=== PATIENT | female | born 1955 | race Caucasian/White ===

== ENCOUNTER 2016-10-17 16:50 | Emergency (ER) | payer OTHER ==
[2016-10-17 16:59] VITALS: BP 118/68
--- NOTE | 2016-10-17 17:17 | ED Physician Documentation ---
History of Present Illness - Stated complaint Stated Complaint: GROIN PX - Chief complaint Chief Complaint: General - History obtained from History obtained from: Patient - History of Present Illness Timing: Other (61-year-old woman with history of breast cancer was diagnosed with right atrial thrombus a little over a month ago and has been on Pradaxa ever since. She has been moving around a lot lately and moving furniture and developed gradual onset right groin pain, She called her physician who referred her to the emergency department to rule out Clot given her current issues.) Review of Systems Constitutional: denies: Fever, Chills Throat: denies: Dental pain / toothache Cardiac: denies: Chest pain / pressure, Palpitations Respiratory: denies: Dyspnea, Cough GI: denies: Abdominal Pain PD PAST MEDICAL HISTORY - Past Medical History Cardiovascular: Hypertension, High cholesterol, Angina Respiratory: Asthma Endocrine/Autoimmune: HyPOthyroidism GI: GI bleed, Chronic constipation : Retention Psych: Depression, Anxiety Musculoskeletal: Osteoarthritis Derm: Herpes zoster - Past Surgical History Past Surgical History: Yes General: Cholecystectomy, Appendectomy Ortho: Knee replacement, Rotator cuff repair, Other /BUSINESS ASST: Other HEENT: Tonsil/Adenoidectomy - Present Medications Home Medications: Ambulatory Orders Medication Instructions Recorded Confirmed Albuterol [Ventolin Hfa] 2 puffs INH Q6HR PRN 04/26/13 10/17/16 Alpha Lipoic Acid [Alpha-Lipoic 50 mg PO DAILY 04/26/13 10/17/16 Acid] Aspirin [Aspir 81] 81 mg PO DAILY 04/26/13 10/17/16 Cholecalciferol (Vitamin D3) 400 unit PO DAILY 04/26/13 10/17/16 [Vitamin D-400] Chromium Picolinate 400 mcg PO DAILY 04/26/13 10/17/16 Dextroamphetamine/Amphetamine 30 mg PO BID 04/26/13 10/17/16 [Adderall 10 mg Tablet] Fexofenadine [Marta] 60 mg PO DAILY PRN 04/26/13 10/17/16 Hydrochlorothiazide 25 mg PO DAILY 04/26/13 10/17/16 Lactobacillus Acidophilus 1 each PO TID 04/26/13 10/17/16 [Acidophilus] Levothyroxine Sodium [Synthroid] 88 mcg PO QAM 04/26/13 10/17/16 Multivitamin [Multivitamins] 1 each PO DAILY 04/26/13 10/17/16 [place]-3/Dha/Epa/Fish Oil [Fish Oil 1 each PO DAILY 04/26/13 10/17/16 [place]-3 Softgel] Omeprazole [PriLOSEC] 10 mg PO DAILY PRN 04/26/13 10/17/16 Ubidecarenone [Co Q10] 100 mg PO DAILY 04/26/13 10/17/16 Potassium Bicarbonate/Cit AC 10 meq PO DAILY 09/20/13 10/17/16 [Potassium 25 Meq Tablet Eff] Azithromycin 500 mg PO DAILY 10/17/16 10/17/16 Dabigatran Etexilate Mesylate 150 mg PO DAILY 10/17/16 10/17/16 [Pradaxa] Fluticasone/Salmeterol 100/50 0 puffs INH BID 10/17/16 10/17/16 [Advair 100 Mcg/50 Mcg] Ipratropium/Albuterol [Combivent 4 gm IH .FREQ 10/17/16 10/17/16 Respimat] buPROPion [Wellbutrin Sr] 150 mg PO BID 10/17/16 10/17/16 - Allergies Allergies/Adverse Reactions: Allergies Allergy/AdvReac Type Severity Reaction Status Date / Time bupivacaine HCl * Allergy Unknown Verified 05/22/15 11:04 [From Marcaine-Epinephrine] ibuprofen Allergy Rash Unverified 05/22/15 11:04 Latex, Natural Rubber Allergy Rash Verified 02/15/16 15:35 morphine Allergy Itching Unverified 05/22/15 11:04 naproxen sodium * Allergy Itching Unverified 05/22/15 11:04 [From Aleve] Sulfa (Sulfonamide Allergy Edema Unverified 05/22/15 11:04 Antibiotics) phenytoin sodium * AdvReac Hives Unverified 05/22/15 11:04 [From Dilantin] phenytoin sodium extended * AdvReac Hives Unverified 05/22/15 11:04 [From Dilantin] - Social History Does the pt smoke?: No Smoking Status: Never smoker Does the pt have substance abuse?: No - POLST Patient has POLST: No PD ED PE NORMAL - Vitals Vital signs reviewed: Yes - General General: Alert and oriented X 3, No acute distress - Extremities Extremities: No edema, No calf tenderness / cord, Other (Normal PT and DP pedal pulses on the left) - Neuro Neuro: Alert and oriented X 3, Normal speech - Psych Psych: Normal mood, Normal affect Results - Vitals Vitals: Vital Signs - 24 hr 10/17/16 16:54 Temperature 36.1 C L Heart Rate 71 Respiratory 16 Rate Blood Pressure 118/68 O2 Saturation 100 Oxygen O2 Source Room air - Labs Labs: Laboratory Tests 10/17/16 18:21 Urine Color YELLOW Urine Clarity CLEAR Urine pH 6.0 Ur Specific [place] <=1.005 Urine Protein NEGATIVE Urine Glucose (UA) NEGATIVE Urine Ketones NEGATIVE Urine Occult Blood SMALL H Urine Nitrite NEGATIVE Urine Bilirubin NEGATIVE Urine Urobilinogen 0.2 (NORMAL) Ur Leukocyte Esterase NEGATIVE Urine RBC 0-5 Urine WBC 0-3 Ur Squamous Epith Cells NONE SEEN Urine Bacteria None Seen Ur Microscopic Review INDICATED Urine Culture Comments NOT INDICATED PD MEDICAL DECISION MAKING - ED course ED course: No clinical or ultrasonographic evidence of arterial or venous thrombus. She was reassured. Departure - Departure Disposition: 01 Home, Self Care Clinical Impression: Leg pain, left Condition: Good Record reviewed to determine appropriate education?: Yes Instructions: ED Strain Muscle Ext Comments: Tylenol as needed for pain. Return if worse or if new symptoms develop. Discharge Date/Time: 10/17/16 18:58
[2016-10-17 18:29] LABS: BILIRUBIN,URINE NEGATIVE (NEGATIVE)
--- NOTE | 2016-10-17 18:39 | Ultrasound Preliminary Report ---
Exam: US Duplex Ext Veins Left IMPRESSION: No evidence for deep venous thrombosis. [facility] SITE ID: [id number]
--- NOTE | 2016-10-17 18:41 | Ultrasound Report ---
EXAM: LEFT LOWER EXTREMITY VENOUS ULTRASOUND EXAM DATE: 10/17/2016 06:21 PM. CLINICAL HISTORY: Leg pain. COMPARISON: None. TECHNIQUE: Real-time sonographic vascular imaging was performed by the clinical lab clerk through the lower extremity utilizing both color-flow and Doppler spectral analysis. Multiple access representative static enedelia ges were saved for review. FINDINGS: Common Femoral Vein (CFV): Normal. CFV-GSV Junction: Normal. Profunda Femoral Vein (PFV): Normal. Femoral Vein (FV) Prox: Normal. Femoral Vein (FV) Mid: Normal. Femoral Vein (FV) Dist: Normal. Popliteal Vein: Normal. Posterior Tibial Veins: Normal. Peroneal Veins: Normal. Contralateral Side CFV: Normal. Other: None. IMPRESSION: No evidence for deep venous thrombosis. [facility] Referring Provider Line: [phone] SITE ID: [id number]
[2016-10-17 18:53] LABS: UA w/ MICROSCOPIC CHARGE YES
[2016-10-17 18:54] LABS: UR CULTURE IF IND NOT INDICATED; WBC,URINE 0-3 /HPF (0-5)
== END 2016-10-17 18:58 | disposition home or self-care (01) ==
LOC: ED 16:50
DX: M79.652 Pain in left thigh (principal); Z86.718 Personal history of other venous thrombosis and embolism; Z79.01 Long term (current) use of anticoagulants; Z85.3 Personal history of malignant neoplasm of breast; I10 Essential (primary) hypertension; E78.00 Pure hypercholesterolemia, unspecified; I20.9 Angina pectoris, unspecified; J45.909 Unspecified asthma, uncomplicated; E03.9 Hypothyroidism, unspecified; M19.90 Unspecified osteoarthritis, unspecified site; Z79.82 Long term (current) use of aspirin
CPT/HCPCS: 81001; 81003; 87086; 99283

== ENCOUNTER 2017-03-18 12:14 | Outpatient (CLI) | payer OTHER ==
[2017-03-18 13:06] LABS: % IRON SATURATION 43 % (20-50); CHOL/HDL RATIO 2.9 (<4.4); CHOLESTEROL 209 mg/dL; HDL CHOLESTEROL 73 mg/dL; IRON 145 ug/dL (28-170); LDL CHOLESTEROL,CALCULATED 120 mg/dL; LDL/HDL RATIO 1.6 (<4.4); TOTAL IRON BINDING CAPACITY 335 ug/dL (250-450); TRANSFERRIN 239 mg/dL (192-382); VLDL CHOLESTEROL 16 mg/dL
[2017-03-18 13:47] LABS: HB2 TOTAL 13.3 g/dL; HEMOGLOBIN A1C 0.53 g/dL; HEMOGLOBIN A1C % 5.8 % (4.6-6.2)
[2017-03-20 14:46] LABS: ANA SCREEN POSITIVE (NEGATIVE)
== END 2017-03-18 12:15 | disposition home or self-care (01) ==
LOC: LAB 12:14
PROVIDERS: ATTEND Internal Medicine
DX: E03.9 Hypothyroidism, unspecified (principal); R53.83 Other fatigue; R53.1 Weakness; G89.29 Other chronic pain
CPT/HCPCS: 36415; 80061; 82306; 83036; 83540; 84466; 86038

== ENCOUNTER 2017-04-20 12:26 | Outpatient (CLI) | payer OTHER ==
[2017-04-20 16:53] LABS: THYROID STIMULATING HORMONE 0.87 uIU/mL (0.34-5.60)
[2017-04-20 16:56] LABS: FREE T4 (FREE THYROXINE) 1.24 ng/dL (0.58-1.64)
[2017-04-22 10:41] LABS: DNA (DS) ANTIBODY <1 IU/mL
[2017-04-22 20:17] LABS: SMOOTH MUSCLE IGG AB <20 U
== END 2017-04-20 12:27 | disposition home or self-care (01) ==
LOC: LAB 12:26
PROVIDERS: ATTEND Internal Medicine
DX: R76.8 Other specified abnormal immunological findings in serum (principal); M89.8X9 Other specified disorders of bone, unspecified site; E03.9 Hypothyroidism, unspecified
CPT/HCPCS: 36415; 81599; 83516; 84439; 84443; 84481; 86225; 86235

== ENCOUNTER 2017-05-20 09:48 | Emergency (ER) | payer OTHER ==
[2017-05-20 10:54] LABS: BILIRUBIN,URINE NEGATIVE (NEGATIVE); GLUCOSE, URINE (UA) NEGATIVE (NEGATIVE); KETONES,URINE (UA) NEGATIVE (NEGATIVE); LEUKOCYTE ESTERASE, URINE NEGATIVE (NEGATIVE); NITRITE,URINE NEGATIVE (NEGATIVE); OCCULT BLOOD,URINE TRACE-LYSE (NEGATIVE); PROTEIN,URINE NEGATIVE (NEGATIVE); UROBILINOGEN,URINE 0.2 (NORMAL) E.U./dL (NORMAL)
[2017-05-20 10:58] LABS: CLARITY,URINE CLEAR (CLEAR)
[2017-05-20 11:01] LABS: BASOPHILS # (AUTO) 0.1 10^3/uL (0.0-0.1); BASOPHILS % (AUTO) 0.6 %; EOSINOPHILS # (AUTO) 0.2 10^3/uL (0.0-0.7); EOSINOPHILS % (AUTO) 2.3 %; HGB - HEMOGLOBIN 13.1 g/dL (12.0-16.0); LYMPHOCYTES # (AUTO) 1.6 10^3/uL (1.5-3.5); LYMPHOCYTES % (AUTO) 16.7 %; MEAN CORPUSCULAR HGB CONC 34.1 g/dL (32.0-36.0); MEAN CORPUSCULAR VOLUME 90.9 fL (81.0-99.0); MEAN PLATELET VOLUME 7.7 fL (7.9-10.8); NEUTROPHILS # (AUTO) 6.9 10^3/uL (1.5-6.6); NEUTROPHILS % (AUTO) 70.4 %; PLT - PLATELET COUNT 242 10^3/uL (130-450); RED BLOOD COUNT 4.24 10^6/uL (4.20-5.40); WHITE BLOOD COUNT 9.9 x10^3/uL (4.8-10.8)
--- NOTE | 2017-05-20 11:12 | ED Physician Documentation ---
PD HPI ABD PAIN - Stated complaint Stated Complaint: LOWER ABD PX/CONSTIPATION - Chief complaint Chief Complaint: Abd Pain - History obtained from History obtained from: Patient - History of Present Illness Pain level max: 9 Pain level now: 9 Quality: Cramping, Aching, Sharp Location: Other (lower abdomen) Associated symptoms: No: Vomiting, Hematemesis Recently seen: Not recently seen - Additional information Additional information: Patient is a 62 yo F with a long history of chronic constipation. Is on lactulose at home. She states that she has had abd pain for 2 days. Constant. 9/ 10. worse when trying to have a BM or palpation. Nothing makes it better. She is taking diclofenac and this helps. Started clindamycin yesterday for a "gynecology" issue. No BM x2 days. No diarrhea. No fevers. Review of Systems Constitutional: denies: Fever, Chills Nose: denies: Rhinorrhea / runny nose, Congestion Respiratory: denies: Cough GI: denies: Nausea, Vomiting Skin: denies: Rash Musculoskeletal: denies: Neck pain, Back pain Neurologic: denies: Headache PD PAST MEDICAL HISTORY - Past Medical History Past Medical History: Yes Cardiovascular: Hypertension, High cholesterol, Angina Respiratory: Asthma Endocrine/Autoimmune: HyPOthyroidism GI: GI bleed, Chronic constipation : Retention Psych: Depression, Anxiety Musculoskeletal: Osteoarthritis Derm: Herpes zoster - Past Surgical History Past Surgical History: Yes General: Cholecystectomy, Appendectomy Ortho: Knee replacement, Rotator cuff repair, Other /HOMICIDE [place]: Other HEENT: Tonsil/Adenoidectomy - Present Medications Home Medications: Ambulatory Orders Medication Instructions Recorded Confirmed Albuterol [Ventolin Hfa] 2 puffs INH Q6HR PRN 04/26/13 10/17/16 Alpha Lipoic Acid [Alpha-Lipoic 50 mg PO DAILY 04/26/13 10/17/16 Acid] Aspirin [Aspir 81] 81 mg PO DAILY 04/26/13 10/17/16 Cholecalciferol (Vitamin D3) 400 unit PO DAILY 04/26/13 10/17/16 [Vitamin D-400] Chromium Picolinate 400 mcg PO DAILY 04/26/13 10/17/16 Dextroamphetamine/Amphetamine 30 mg PO BID 04/26/13 10/17/16 [Adderall 10 mg Tablet] Fexofenadine [Marta] 60 mg PO DAILY PRN 04/26/13 10/17/16 Hydrochlorothiazide 25 mg PO DAILY 04/26/13 10/17/16 Lactobacillus Acidophilus 1 each PO TID 04/26/13 10/17/16 [Acidophilus] Levothyroxine Sodium [Synthroid] 88 mcg PO QAM 04/26/13 10/17/16 Multivitamin [Multivitamins] 1 each PO DAILY 04/26/13 10/17/16 [place]-3/Dha/Epa/Fish Oil [Fish Oil 1 each PO DAILY 04/26/13 10/17/16 [place]-3 Softgel] Omeprazole [PriLOSEC] 10 mg PO DAILY PRN 04/26/13 10/17/16 Ubidecarenone [Co Q10] 100 mg PO DAILY 04/26/13 10/17/16 Potassium Bicarbonate/Cit AC 10 meq PO DAILY 09/20/13 10/17/16 [Potassium 25 Meq Tablet Eff] Azithromycin 500 mg PO DAILY 10/17/16 10/17/16 Dabigatran Etexilate Mesylate 150 mg PO DAILY 10/17/16 10/17/16 [Pradaxa] Fluticasone/Salmeterol 100/50 0 puffs INH BID 10/17/16 10/17/16 [Advair 100 Mcg/50 Mcg] Ipratropium/Albuterol [Combivent 4 gm IH .FREQ 10/17/16 10/17/16 Respimat] buPROPion [Wellbutrin Sr] 150 mg PO BID 10/17/16 10/17/16 Amox/Clav 875/125 [Augmentin] 1 each PO Q12H #20 tablet 05/20/17 Hydrocodone/Acetaminophen 1 - 2 each PO Q6H PRN #10 tablet 05/20/17 [Hydrocodon-Acetaminophen 5-325] - Allergies Allergies/Adverse Reactions: Allergies Allergy/AdvReac Type Severity Reaction Status Date / Time bupivacaine HCl * Allergy Unknown Verified 05/20/17 12:59 [From Marcaine-Epinephrine] ibuprofen Allergy Rash Verified 05/20/17 12:59 Latex, Natural Rubber Allergy Rash Verified 05/20/17 12:59 meperidine [From Demerol] Allergy Hives Verified 05/20/17 12:59 methylparaben Allergy Hives Verified 05/20/17 12:59 morphine Allergy Itching Verified 05/20/17 12:59 naproxen sodium * Allergy Itching Verified 05/20/17 12:59 [From Aleve] propoxyphene [From Darvon] Allergy Hives Verified 05/20/17 12:59 Sulfa (Sulfonamide Allergy Edema Verified 05/20/17 12:59 Antibiotics) phenytoin sodium * AdvReac Hives Verified 05/20/17 12:59 [From Dilantin] phenytoin sodium extended * AdvReac Hives Verified 05/20/17 12:59 [From Dilantin] - Social History Does the pt smoke?: No Smoking Status: Never smoker Does the pt drink ETOH?: No Does the pt have substance abuse?: No - Immunizations Immunizations are current?: Yes - POLST Patient has POLST: No PD ED PE NORMAL - Vitals Vital signs reviewed: Yes - General General: Alert and oriented X 3, No acute distress - HEENT HEENT: PERRL, Moist mucous membranes - Neck Neck: Supple, no meningeal sign - Cardiac Cardiac: RRR, Strong equal pulses - Respiratory Respiratory: No respiratory distress, Clear bilaterally - Abdomen Abdomen: Soft, Non tender, Non distended - Rectal Rectal: Other (stool soft in rectal vault. no blood. non-tender.) - Derm Derm: Warm and dry - Neuro Neuro: Alert and oriented X 3 - Psych Psych: Normal mood, Normal affect Results - Vitals Vitals: Vital Signs - 24 hr 05/20/17 05/20/17 09:57 12:14 Temperature 36.8 C Heart Rate 72 67 Respiratory 20 16 Rate Blood Pressure 117/69 115/64 O2 Saturation 100 99 Oxygen O2 Source Room air - Labs Labs: Laboratory Tests 05/20/17 05/20/17 05/20/17 10:20 10:20 10:20 WBC 9.9 RBC 4.24 Hgb 13.1 Hct 38.5 MCV 90.9 MCH 31.0 MCHC 34.1 RDW 13.0 Plt Count 242 MPV 7.7 L Neut # 6.9 H Lymph # 1.6 [place] # 1.0 Eos # 0.2 Baso # 0.1 Absolute Nucleated RBC 0.00 Nucleated RBC % 0.0 Sodium 133 L Potassium 3.9 Chloride 99 L Carbon Dioxide 23 Anion Gap 11.0 BUN 16 Creatinine 0.7 Estimated GFR (MDRD) 85 L Glucose 126 H Calcium 8.8 Total Bilirubin 0.7 AST 28 ALT 26 Alkaline Phosphatase 66 Total Protein 7.0 Albumin 3.9 Globulin 3.1 Albumin/Globulin Ratio 1.3 Lipase < 10 L Urine Color YELLOW Urine Clarity CLEAR Urine pH 7.0 Ur Specific [place] 1.010 Urine Protein NEGATIVE Urine Glucose (UA) NEGATIVE Urine Ketones NEGATIVE Urine Occult Blood TRACE-LYSE Urine Nitrite NEGATIVE Urine Bilirubin NEGATIVE Urine Urobilinogen 0.2 (NORMAL) Ur Leukocyte Esterase NEGATIVE Ur Microscopic Review NOT INDICATED Urine Culture Comments NOT INDICATED - Rads (name of study) CT abd/pelvis Radiology: Prelim report reviewed, EMP read contemporaneously, See rad report ( Acute sigmoid diverticulitis. Uncomplicated.) PD MEDICAL DECISION MAKING - ED course Complexity details: reviewed results, re-evaluated patient, considered differential, d/w patient, d/w family ED course: Patient is a 62-year-old female who presents to the emergency department with chronic constipation. She appears to have sigmoid diverticulitis on CT. No perforation or abscess. Will place on antibiotics for this and continue her current medications at home. We will have her follow-up with her doctor for further evaluation and care. She has a GI appointment upcoming. Patient counseled regarding signs and symptoms for which I believe and urgent re- evaluation would be necessary. Patient with good understanding of and agreement to plan and is comfortable going home at this time This document was made in part using voice recognition software. While efforts are made to proofread this document, sound alike and grammatical errors may occur. Departure - Departure Disposition: 01 Home, Self Care Clinical Impression: Diverticulitis Condition: Good Instructions: ED Diverticulitis Follow-Up: KARY JONES MD [Primary Care Provider] - Within 1 week Prescriptions: Amox/Clav 875/125 [Augmentin] 1 each PO Q12H #20 tablet Hydrocodone/Acetaminophen [Hydrocodon-Acetaminophen 5-325] 1 - 2 each PO Q6H PRN #10 tablet PRN Reason: pain Comments: Drink plenty of fluids. Return if you worsen. Take all antibiotics until gone.
[2017-05-20] MEDS ORDERED: MINERAL OIL ENEMA 133 ML BOTTLE RC STA (11:22)
[2017-05-20 11:29] LABS: ALBUMIN 3.9 g/dL (3.2-5.5); ALBUMIN/GLOBULIN RATIO 1.3 (1.0-2.2); ALKALINE PHOSPHATASE 66 IU/L (42-121); ALT ALANINE AMINOTRANSFERASE 26 IU/L (10-60); AST ASPARTATE AMINOTRANSFERASE 28 IU/L (10-42); BILIRUBIN,TOTAL 0.7 mg/dL (0.2-1.0); BUN - BLOOD UREA NITROGEN 16 mg/dL (6-20); CALCIUM 8.8 mg/dL (8.5-10.3); CARBON DIOXIDE - CO2 23 mmol/L (21-32); CHLORIDE 99 mmol/L (101-111); CREATININE 0.7 mg/dL (0.4-1.0); GFR - MDRD 85 (>89); GLUCOSE 126 mg/dL (70-100); SODIUM 133 mmol/L (135-145)
[2017-05-20 11:35] LABS: LIPASE < 10 U/L (22-51)
[2017-05-20] MEDS ORDERED: IOPAMIDOL-300 100 ML VIAL ONE (12:52)
[2017-05-20] MEDS ORDERED: ACETAMINOPHEN 325 MG TABLET PO STA (12:56)
[2017-05-20] MEDS ORDERED: HYDROcod/ACETAM 5/325 MG TABLET PO STA (13:38)
--- NOTE | 2017-05-20 13:45 | CT Preliminary Report ---
Exam: CT ABDOMEN/PELVIS W/ IMPRESSION: 1. Sigmoid diverticulitis. No abscess or evidence of perforation. 2. Probable hepatic steatosis. 3. Chronic and incidental findings as above. [facility] SITE ID: [id number]
--- NOTE | 2017-05-20 13:46 | CT Report ---
EXAM: CT ABDOMEN AND PELVIS EXAM DATE: 05/20/2017 01:24 PM. CLINICAL HISTORY: Lower abd pain, . COMPARISONS: 05/22/2014. TECHNIQUE: Routine helical CT imaging was performed through the abdomen and pelvis. IV contrast: ISOV UE 300 100mL. Enteric contrast: No. Reconstructions: Coronal and sagittal. In accordance with CT protocol optimization, one or more of the following dose reduction techniques w ere utilized for this exam: automated exposure control, adjustment of mA and/or KV based on patient s ize, or use of iterative reconstructive technique. FINDINGS: Lung Bases: Unremarkable. Liver: Diffusely decreased parenchymal attenuation. Otherwise within normal limits. Gallbladder/Bile Ducts: The gallbladder is not visualized and may be surgically absent. No biliary di latation. Spleen: No significant abnormality. Pancreas: No significant abnormality. Adrenal Glands: Normal. Kidneys: Normal. Peritoneal Cavity/Bowel: Moderate sigmoid colon and mild descending colon diverticulosis. There is sh ort segment wall thickening and adjacent inflammatory fat stranding at the distal sigmoid colon. No a bscess. No ascites or pneumoperitoneum. No bowel obstruction or abnormal stool burden. The appendix i s not visualized. No pericecal inflammatory change. Pelvic Organs: The urinary bladder and visualized pelvic organs are within normal limits. Vasculature: Minimal atherosclerosis. No aneurysm. Bones: Degenerative change of the visualized spine. No acute osseous abnormality or aggressive osseou s lesion. Other: None. IMPRESSION: 1. Sigmoid diverticulitis. No abscess or evidence of perforation. 2. Probable hepatic steatosis. 3. Chronic and incidental findings as above. [facility] Referring Provider Line: [phone] SITE ID: [id number]
[2017-05-20] MEDS ORDERED: IOPAMIDOL-300 100 ML VIAL IVP ONE (13:57)
[2017-05-20 14:29] VITALS: BP 118/60
== END 2017-05-20 14:27 | disposition home or self-care (01) ==
LOC: ED 09:48
DX: K57.92 Diverticulitis of intestine, part unspecified, without perforation or abscess without bleeding (principal); E78.00 Pure hypercholesterolemia, unspecified; I10 Essential (primary) hypertension; E03.9 Hypothyroidism, unspecified; Z96.659 Presence of unspecified artificial knee joint
CPT/HCPCS: 36415; 74177; 80053; 81003; 83690; 85025; 99284; A9270; Q9967; 81001; 87086

== ENCOUNTER 2017-11-01 11:31 | Outpatient (CLI) | payer OTHER ==
[2017-11-01 17:56] LABS: BASOPHILS # (AUTO) 0.1 10^3/uL (0.0-0.1); BASOPHILS % (AUTO) 1.3 %; EOSINOPHILS # (AUTO) 0.3 10^3/uL (0.0-0.7); EOSINOPHILS % (AUTO) 4.9 %; HGB - HEMOGLOBIN 13.7 g/dL (12.0-16.0); LYMPHOCYTES # (AUTO) 1.7 10^3/uL (1.5-3.5); LYMPHOCYTES % (AUTO) 27.4 %; MEAN CORPUSCULAR HEMOGLOBIN 31.2 pg (27.0-31.0); MEAN CORPUSCULAR HGB CONC 33.7 g/dL (32.0-36.0); MEAN CORPUSCULAR VOLUME 92.7 fL (81.0-99.0); MEAN PLATELET VOLUME 7.8 fL (7.9-10.8); MONOCYTES # (AUTO) 0.6 10^3/uL (0.0-1.0); MONOCYTES % (AUTO) 9.3 %; NEUTROPHILS # (AUTO) 3.6 10^3/uL (1.5-6.6); NEUTROPHILS % (AUTO) 57.1 %; PLT - PLATELET COUNT 266 10^3/uL (130-450); RED BLOOD COUNT 4.39 10^6/uL (4.20-5.40); RED CELL DISTRIBUTION WIDTH 13.2 % (12.0-15.0); WHITE BLOOD COUNT 6.2 x10^3/uL (4.8-10.8)
[2017-11-01 18:08] LABS: ALBUMIN 3.9 g/dL (3.2-5.5); ALBUMIN/GLOBULIN RATIO 1.1 (1.0-2.2); CALCIUM 9.1 mg/dL (8.5-10.3); CREATININE 0.7 mg/dL (0.4-1.0); TOTAL PROTEIN 7.4 g/dL (6.7-8.2)
[2017-11-01 18:15] LABS: T4 (THYROXINE) 7.34 ug/dL (6.09-12.23)
[2017-11-01 18:20] LABS: THYROID STIMULATING HORMONE 0.56 uIU/mL (0.34-5.60)
== END 2017-11-01 11:32 | disposition home or self-care (01) ==
LOC: LAB.S 11:31
PROVIDERS: ATTEND Internal Medicine
DX: E03.9 Hypothyroidism, unspecified (principal); R73.9 Hyperglycemia, unspecified; R10.9 Unspecified abdominal pain; R60.0 Localized edema; R76.8 Other specified abnormal immunological findings in serum
CPT/HCPCS: 36415; 80053; 84436; 84443; 84481; 85025

== ENCOUNTER 2017-12-03 08:36 | Outpatient (CLI) | payer OTHER | END 2017-12-03 08:37 | disposition short-term general hospital (02) | LOC: EMS 08:36 | PROVIDERS: ATTEND Surgery | DX: R07.9 Chest pain, unspecified (principal); R00.2 Palpitations | CPT/HCPCS: A0425; A0427 ==

== ENCOUNTER 2018-02-01 17:16 | Outpatient (CLI) | payer OTHER ==
--- NOTE | 2018-02-01 18:04 | XRAY Report ---
Reason: PAIN IN UNSPECIFIED HIP, PELVIC AND PERINEAL PAIN Procedure Date: 02/01/2018 Accession Number: [id number] / [id number] Procedure: XR - Hip w/Pelvis 2-3V LT CPT Code: FULL RESULT: EXAM: LEFT HIP AND PELVIS RADIOGRAPHY EXAM DATE: 02/01/2018 05:46 PM. HISTORY: PAIN IN UNSPECIFIED HIP, PELVIC AND PERINEAL PAIN. COMPARISONS: None. TECHNIQUE: 1 view of the pelvis and 1 view of the hip. FINDINGS: Bones: Normal. No fracture or bone lesion. Joints: Mild bilateral sacroiliac degenerative joint disease. Mild pubic symphysis sclerosis. Bilateral hips appear within normal limits. No dislocation. Soft Tissues: Normal. No soft tissue swelling. IMPRESSION: Mild bilateral sacroiliac degenerative joint disease. Mild pubic symphysis sclerosis. Bilateral hips appear within normal limits. [facility]
--- NOTE | 2018-02-01 19:22 | Ultrasound Report ---
Reason: PAIN IN UNSPECIFIED HIP, PELVIC AND PERINEAL PAIN Procedure Date: 02/01/2018 Accession Number: [id number] / [id number] Procedure: US - Pelvic Complete CPT Code: FULL RESULT: EXAM: PELVIC ULTRASOUND EXAM DATE: 02/01/2018 06:02 PM. CLINICAL HISTORY: PAIN IN UNSPECIFIED HIP, PELVIC AND PERINEAL PAIN. COMPARISON: None. TECHNIQUE: Realtime transabdominal pelvic scan performed to identify the uterus and adnexa and as an overview of other pelvic structures, followed by transvaginal technique for anatomic detail with static image documentation. FINDINGS: Uterus: 5.4 x 1.8 x 2.8 cm, volume 14 cc. Anteverted position. Normal overall size and echotexture. Masses: None. Endometrium: 3 mm. Several echogenic endometrial foci, these are nonspecific and likely post inflammatory or related to previous instrumentation and are of doubtful clinical significance. No hypervascular endometrial mass. Cervix: There are several complex nabothian cysts. Right Ovary: 2.8 x 1.2 x 1.7 cm, volume 2.9 cc. Normal echotexture and blood flow. Left Ovary: 2.3 x 1.4 x 1.5 cm, volume 2.5 cc. Normal echotexture and blood flow. Free Fluid: None. Other: None. IMPRESSION: Unremarkable pelvic ultrasound. [facility]
== END 2018-02-01 17:17 | disposition home or self-care (01) ==
LOC: DI 17:16
PROVIDERS: ATTEND Internal Medicine
DX: M47.898 Other spondylosis, sacral and sacrococcygeal region (principal); R10.2 Pelvic and perineal pain
CPT/HCPCS: 76830; 76856

== ENCOUNTER 2018-03-28 13:57 | Outpatient (CLI) | payer OTHER | END 2018-03-28 13:58 | disposition home or self-care (01) | LOC: NS 13:57 | PROVIDERS: ATTEND Internal Medicine | DX: Z71.3 Dietary counseling and surveillance (principal); R73.03 Prediabetes | CPT/HCPCS: 97802 ==

== ENCOUNTER 2019-04-16 01:16 | Outpatient (CLI) | payer OTHER | END 2019-04-16 01:17 | disposition EMS.NT | LOC: EMS 01:16 | PROVIDERS: ATTEND Surgery | DX: S09.90XA Unspecified injury of head, initial encounter (principal); R42 Dizziness and giddiness; W08.XXXA Fall from other furniture, initial encounter; Y93.89 Activity, other specified; Y92.009 Unspecified place in unspecified non-institutional (private) residence as the place of occurrence of the external cause ==

== ENCOUNTER 2020-06-27 12:19 | Outpatient (CLI) | payer MEDICARE, OTHER ==
[2020-06-27 12:55] LABS: CREATININE 0.6 mg/dL (0.4-1.0)
== END 2020-06-27 12:20 | disposition home or self-care (01) ==
LOC: DI 12:19
PROVIDERS: ATTEND Internal Medicine
DX: R10.32 Left lower quadrant pain (principal)
CPT/HCPCS: 36415; 82565

== ENCOUNTER 2021-02-08 15:30 | Outpatient (CLI) | payer MEDICARE, OTHER ==
[2021-02-08 18:00] LABS: BILIRUBIN,URINE NEGATIVE (NEGATIVE); GLUCOSE, URINE (UA) NEGATIVE (NEGATIVE); KETONES,URINE (UA) NEGATIVE (NEGATIVE); LEUKOCYTE ESTERASE, URINE TRACE (NEGATIVE); NITRITE,URINE NEGATIVE (NEGATIVE); OCCULT BLOOD,URINE SMALL (NEGATIVE); PROTEIN,URINE NEGATIVE (NEGATIVE); UROBILINOGEN,URINE 0.2 (NORMAL) E.U./dL (NORMAL)
[2021-02-08 18:04] LABS: CLARITY,URINE CLEAR (CLEAR)
[2021-02-08 18:19] LABS: BACTERIA,URINE Rare /HPF (None Seen); RBC,URINE 0-5 /HPF (0-5); SQUAMOUS EPITHELIAL CELL,UR RARE Squamous (<= Few)
== END 2021-02-08 23:59 | disposition home or self-care (01) ==
LOC: LAB 15:30
PROVIDERS: ATTEND Emergency Medicine
DX: R30.0 Dysuria (principal)
CPT/HCPCS: 81001; 87086

== ENCOUNTER 2021-05-04 08:00 | Outpatient (CLI) | payer MEDICARE, OTHER ==
--- NOTE | 2021-05-04 18:01 | XRAY Report ---
PROCEDURE: Foot 3 View RT INDICATIONS: CONTUSION OF RIGHT FOOT TECHNIQUE: 3 views of the foot were acquired. COMPARISON: None. FINDINGS: Bones: No acute fractures or dislocations. No suspicious bony lesions. Scattered degenerative [place] ges are seen in the interphalangeal joints of the toes. Focal cortical irregularity at the medial asp ect of the first proximal phalangeal head appears to be chronic. Small plantar calcaneal enthesophyte . Soft tissues: No suspicious soft tissue calcifications. IMPRESSION: No acute osseous abnormality. If symptoms persist or there is continued clinical concern, further manuel luation with MRI or CT may be helpful. Reviewed by: Vince Hannah MD on 05/04/2021 5:59 PM [facility] Approved by: Vnice Hannah MD on 05/04/2021 5:59 PM [facility] Station ID: [id number]
== END 2021-05-04 23:59 | disposition home or self-care (01) ==
LOC: DI.S 08:00
PROVIDERS: ATTEND Emergency Medicine
DX: S90.31XA Contusion of right foot, initial encounter (principal)

== ENCOUNTER 2021-07-21 08:00 | Outpatient (CLI) | payer MEDICARE, OTHER ==
--- NOTE | 2021-07-21 18:38 | XRAY Report ---
PROCEDURE: Toe(s) RT INDICATIONS: CONTUSION OF LESSER TOES RIGHT TECHNIQUE: 3 views of the second toe(s) acquired. COMPARISON: X-ray right foot, 3 views, 05/04/2021. FINDINGS: Bones: Probable evulsion fracture at the base of the second phalanx. No dislocations. No suspicious bony lesions. Soft tissues: No suspicious soft tissue densities. IMPRESSION: Probable avulsion fracture at the base of the second middle phalanx. Reviewed by: Shari Pritchett MD on 07/21/2021 5:37 PM [facility] Approved by: Shari Pritchett MD on 07/21/2021 5:37 PM [facility] Station ID: [id number]
== END 2021-07-21 23:59 | disposition home or self-care (01) ==
LOC: DI.S 08:00
PROVIDERS: ATTEND Physician Assistant Medical
DX: S90.121A Contusion of right lesser toe(s) without damage to nail, initial encounter (principal); R93.6 Abnormal findings on diagnostic imaging of limbs

== ENCOUNTER 2021-09-20 08:00 | Outpatient (CLI) | payer MEDICARE, OTHER | END 2021-09-20 08:01 | disposition home or self-care (01) | LOC: LAB.S 08:00 | PROVIDERS: ATTEND Emergency Medicine | DX: R25.1 Tremor, unspecified (principal) | CPT/HCPCS: 82962 ==

== ENCOUNTER 2021-09-20 08:00 | Outpatient (CLI) | payer MEDICARE, OTHER ==
--- NOTE | 2021-09-20 18:25 | XRAY Report ---
PROCEDURE: Tib/Fib RT INDICATIONS: RIGHT ANKLE PAIN TECHNIQUE: 2 views of the tibia and fibula were acquired. COMPARISON: None FINDINGS: Bones: No fractures or dislocations. No suspicious bony lesions. Partially visualized knee arthrop lasty is present. Hardware is intact without evidence of hardware fracture or periprosthetic lucency to suggest loosening. Soft tissues: No suspicious soft tissue calcifications or masses. IMPRESSION: No visualized acute fracture or dislocation. However, occult injury cannot be excluded. Recommend oleg rt interval imaging follow-up in 7-10 days as clinically indicated for additional evaluation. Reviewed by: Fartun Altman MD on 09/20/2021 6:24 PM PDT Approved by: Fartun Altman MD on 09/20/2021 6:24 PM PDT Station ID: [id number]
--- NOTE | 2021-09-20 18:26 | XRAY Report ---
PROCEDURE: Ankle 3 View RT INDICATIONS: RIGHT ANKLE PAIN TECHNIQUE: 3 views of the ankle were acquired. COMPARISON: X-ray tib-fib 09/20/2021 FINDINGS: Bones: No fractures or dislocations. Ankle mortise is normally aligned. No suspicious bony lesions . Soft tissues: No tibiotalar joint effusion. Achilles tendon appears normal. IMPRESSION: No visualized acute fracture or dislocation. However, occult injury cannot be excluded. Recommend short interval imaging follow-up in 7-10 days as clinically indicated for additional evalua tion. Reviewed by: Fartun Altman MD on 09/20/2021 6:25 PM PDT Approved by: Fartun Altman MD on 09/20/2021 6:25 PM PDT Station ID: [id number]
== END 2021-09-20 08:01 | disposition home or self-care (01) ==
LOC: DI.S 08:00
PROVIDERS: ATTEND Emergency Medicine
DX: M25.571 Pain in right ankle and joints of right foot (principal)

== ENCOUNTER 2022-02-10 08:00 | Outpatient (CLI) | payer MEDICARE, OTHER ==
--- NOTE | 2022-02-11 17:13 | XRAY Report ---
PROCEDURE: Toe(s) LT INDICATIONS: PAIN IN LEFT TOE TECHNIQUE: 3 views of the fifth toe(s) acquired. COMPARISON: None FINDINGS: Bones: No fractures or dislocations. No suspicious bony lesions. Soft tissues: No suspicious soft tissue densities. IMPRESSION: No visualized acute fracture or dislocation. However, occult injury cannot be excluded. Recommend oleg rt interval imaging follow-up in 7-10 days as clinically indicated for additional evaluation. Reviewed by: Fartun Altman MD on 02/11/2022 5:12 PM PST Approved by: Fartun Altman MD on 02/11/2022 5:12 PM PST Station ID: [id number]
== END 2022-02-10 23:59 | disposition home or self-care (01) ==
LOC: DI.S 08:00
PROVIDERS: ATTEND Physician Assistant
DX: M79.675 Pain in left toe(s) (principal)
CPT/HCPCS: 73660

== ENCOUNTER 2022-09-02 16:21 | Outpatient (CLI) | payer MEDICARE, OTHER ==
--- NOTE | 2022-09-02 16:53 | XRAY Report ---
PROCEDURE: Sinus Complete INDICATIONS: SINUS CONGESTION TECHNIQUE: 3 views of the sinuses were acquired. COMPARISON: None FINDINGS: Sinuses: The visualized sinuses demonstrate no air-fluid levels or mucosal thickening. The visualiz ed mastoids also appear clear. Bones: No suspicious bony lesions. Nasal septum is midline. IMPRESSION: Sinuses appear grossly clear. If concern persists, CT is recommended. Reviewed by: Fartun Altman MD on 09/02/2022 4:52 PM PDT Approved by: Fartun Altman MD on 09/02/2022 4:52 PM PDT Station ID: [id number]
== END 2022-09-02 16:22 | disposition home or self-care (01) ==
LOC: DI.S 16:21
PROVIDERS: ATTEND Internal Medicine
DX: R09.81 Nasal congestion (principal)

== ENCOUNTER 2023-05-25 07:00 | Outpatient (CLI) | payer MEDICARE, OTHER | END 2023-05-25 23:59 | disposition home or self-care (01) | LOC: LAB.S 07:00 | PROVIDERS: ATTEND Emergency Medicine | DX: R07.0 Pain in throat (principal) | CPT/HCPCS: 87070 ==

== ENCOUNTER 2023-07-20 12:18 | Outpatient (CLI) | payer MEDICARE, OTHER ==
[2023-07-20 14:28] LABS: BASOPHILS # (AUTO) 0.1 10^3/uL (0.0-0.1); BASOPHILS % (AUTO) 1.1 %; EOSINOPHILS # (AUTO) 0.4 10^3/uL (0.0-0.7); EOSINOPHILS % (AUTO) 5.7 %; HCT - HEMATOCRIT 37.5 % (37.0-47.0); HGB - HEMOGLOBIN 12.1 g/dL (12.0-16.0); LYMPHOCYTES # (AUTO) 2.2 10^3/uL (1.5-3.5); LYMPHOCYTES % (AUTO) 29.6 %; MEAN CORPUSCULAR HEMOGLOBIN 31.3 pg (27.0-31.0); MEAN CORPUSCULAR HGB CONC 32.3 g/dL (32.0-36.0); MEAN CORPUSCULAR VOLUME 97.2 fL (81.0-99.0); MEAN PLATELET VOLUME 9.6 fL (7.9-10.8); MONOCYTES # (AUTO) 0.8 10^3/uL (0.0-1.0); MONOCYTES % (AUTO) 10.9 %; NEUTROPHILS # (AUTO) 3.9 10^3/uL (1.5-6.6); NEUTROPHILS % (AUTO) 52.4 %; PLT - PLATELET COUNT 203 10^3/uL (130-450); RED BLOOD COUNT 3.86 10^6/uL (4.20-5.40); RED CELL DISTRIBUTION WIDTH 12.7 % (12.0-15.0); WHITE BLOOD COUNT 7.4 x10^3/uL (4.8-10.8)
[2023-07-20 15:48] LABS: ALBUMIN/GLOBULIN RATIO 1.4 (1.0-2.2); ALKALINE PHOSPHATASE 66 IU/L (42-121); ALT ALANINE AMINOTRANSFERASE 21 IU/L (10-60); AST ASPARTATE AMINOTRANSFERASE 23 IU/L (10-42); BILIRUBIN,TOTAL 0.5 mg/dL (0.2-1.0); BUN - BLOOD UREA NITROGEN 14 mg/dL (6-20); CALCIUM 9.4 mg/dL (8.5-10.3); CARBON DIOXIDE - CO2 31 mmol/L (21-32); CHLORIDE 98 mmol/L (101-111); CHOL/HDL RATIO 2.6 (<4.4); CHOLESTEROL 188 mg/dL; CREATININE 0.6 mg/dL (0.6-1.3); GFR - MDRD 99 (>89); GLUCOSE 109 mg/dL (74-104); HDL CHOLESTEROL 72 mg/dL; LDL CHOLESTEROL,CALCULATED 97 mg/dL; LDL/HDL RATIO 1.3 (<4.4); POTASSIUM 4.4 mmol/L (3.5-4.5); SODIUM 134 mmol/L (135-145); TOTAL PROTEIN 6.9 g/dL (6.4-8.9); TRIGLYCERIDES 94 mg/dL (48-352); VLDL CHOLESTEROL 19 mg/dL
[2023-07-20 20:16] LABS: ESTIMATED AVERAGE GLUCOSE 120 mg/dL (70-100); HEMOGLOBIN A1c% 5.8 % (4.27-6.07)
== END 2023-07-20 12:19 | disposition home or self-care (01) ==
LOC: LAB.S 12:18
PROVIDERS: ATTEND Nurse Practitioner
DX: F32.A Depression, unspecified (principal)
CPT/HCPCS: 36415; 80053; 80061; 83036; 83721; 84439; 84443; 85025

== ENCOUNTER 2023-08-06 14:04 | Outpatient (CLI) | payer MEDICARE, OTHER ==
--- NOTE | 2023-08-06 16:37 | CT Report ---
PROCEDURE: Sinus INDICATIONS: CHRONIC ETHMOID SINUSITIS TECHNIQUE: Noncontrast 3.0 mm axial images acquired from the frontal sinuses to the mid-sella, with coronal and sagittal reformats. For radiation dose reduction, the following was used: automated exposure control , adjustment of mA and/or kV according to patient size. COMPARISON: None. FINDINGS: Image quality: Excellent. Maxillary Sinuses: No bony remodeling or destruction. Minimal mucosal thickening. Ethmoid Air Cells: No bony remodeling or destruction. Mild mucosal thickening. Sphenoid Sinuses: No bony remodeling or destruction. Sinuses are clear. Frontal Sinuses: No bony remodeling or destruction. Sinuses are clear. Ostiomeatal Complexes: Ostiomeatal complexes are patent. No Jannie cells. Miscellaneous: Visualized intra-orbital contents are normal. No james bullosa. Slight leftward n nichole deviation. IMPRESSION: Mild mucosal thickening of the ethmoid air cells and minimally calcified thickening of the maxillary sinuses, without bone remodeling of the sinus roy. Reviewed by: Silvano Jean MD on 08/06/2023 4:36 PM PDT Approved by: Silvano Jean MD on 08/06/2023 4:36 PM PDT Station ID: [id number]
== END 2023-08-06 14:05 | disposition home or self-care (01) ==
LOC: DI 14:04
PROVIDERS: ATTEND Internal Medicine
DX: J32.2 Chronic ethmoidal sinusitis (principal); J30.9 Allergic rhinitis, unspecified

== ENCOUNTER 2024-05-08 20:41 | Inpatient (IN) ==
[2024-05-08] MEDS: IPRATROPIUM/ALBUTEROL 3 ML NEB INH STA (21:10)
[2024-05-08 21:16] LABS: BASOPHILS % (AUTO) 0.2 %; EOSINOPHILS # (AUTO) 0.1 10^3/uL (0.0-0.7); EOSINOPHILS % (AUTO) 1.5 %; HCT - HEMATOCRIT 35.8 % (37.0-47.0); HGB - HEMOGLOBIN 12.2 g/dL (12.0-16.0); LYMPHOCYTES # (AUTO) 2.1 10^3/uL (1.5-3.5); LYMPHOCYTES % (AUTO) 31.7 %; MEAN CORPUSCULAR HEMOGLOBIN 30.4 pg (27.0-31.0); MEAN CORPUSCULAR HGB CONC 34.1 g/dL (32.0-36.0); MEAN CORPUSCULAR VOLUME 89.3 fL (81.0-99.0); MEAN PLATELET VOLUME 9.6 fL (7.9-10.8); MONOCYTES # (AUTO) 0.7 10^3/uL (0.0-1.0); NEUTROPHILS # (AUTO) 3.7 10^3/uL (1.5-6.6); NEUTROPHILS % (AUTO) 56.3 %; PLT - PLATELET COUNT 199 10^3/uL (130-450); RED BLOOD COUNT 4.01 10^6/uL (4.20-5.40); RED CELL DISTRIBUTION WIDTH 13.1 % (12.0-15.0); WHITE BLOOD COUNT 6.5 x10^3/uL (4.8-10.8)
--- NOTE | 2024-05-08 21:19 | XRAY Report ---
PROCEDURE: XR Chest 1V INDICATIONS: Sepsis TECHNIQUE: One view of the chest was acquired. COMPARISON: 05/03/2024. FINDINGS: Surgical changes and devices: None. Lungs and pleura: No pleural effusions or pneumothorax. No consolidation. Mediastinum: Mediastinal contours appear normal. Heart size is normal. Bones and chest wall: No suspicious bony lesions. Overlying soft tissues appear unremarkable. IMPRESSION: No acute cardiopulmonary process. Reviewed by: Mehul Couch MD on 05/08/2024 9:18 PM PST Approved by: Mehul Couch MD on 05/08/2024 9:18 PM PST Station ID: [id number]
[2024-05-08 21:30] LABS: VBG BASE EXCESS 0.4 mmol/L (-2 - +2); VBG PCO2 38.6 mmHg (41-51); VBG PH 7.418 (7.31-7.41); VBG TOTAL CO2 26.3 mmol/L (24-29)
[2024-05-08 21:34] LABS: ALBUMIN 3.4 g/dL (3.2-5.5); ALBUMIN/GLOBULIN RATIO 1.5 (1.0-2.2); BILIRUBIN,TOTAL 0.3 mg/dL (0.2-1.0); CALCIUM 8.6 mg/dL (8.5-10.3); CREATININE 0.8 mg/dL (0.6-1.3); POTASSIUM 3.6 mmol/L (3.5-4.5); TOTAL PROTEIN 5.7 g/dL (6.4-8.9)
[2024-05-08] MEDS ORDERED: cefTRIAXone 1 GM VIAL ONE (21:34)
[2024-05-08 21:39] LABS: LACTIC ACID, VENOUS 2.1 mmol/L (0.5-2.2)
[2024-05-08] MEDS: ACETAMINOPHEN 325 MG TABLET PO STA (21:46)
[2024-05-08] MEDS: cefTRIAXone 1 GM in SODIUM CHLORIDE 0.9% MINIBAG 100 ML IV STA (21:47)
--- NOTE | 2024-05-08 21:49 | ED Physician Documentation ---
PD HPI DYSPNEA Stated complaint Stated Complaint: PNA, SOA Chief complaint Chief Complaint: Resp History obtained from History obtained from: Patient Additional information Additional information: 69-year-old woman with history of A-fib on no medications except for aspirin (Watchman procedure), diabetes, high blood pressure, asthma, moderate severity alcohol drinker, presents with shortness of breath for the past 5 to 6 days on amoxicillin and azithromycin for pneumonia diagnosed on May 03, with worsening shortness of breath since that time. She also had a course of steroids that is now complete. Denies fever. denies leg swelling Meds/Allgy Home Medications Ambulatory Orders Medication Instructions Recorded Confirmed Lactobacillus acidophilus 100 1 ea PO TID 04/26/13 05/05/24 million cell capsule alpha lipoic acid 50 mg capsule 50 mg PO DAILY 04/26/13 05/05/24 aspirin 81 mg tablet,delayed 81 mg PO DAILY 04/26/13 05/05/24 release (Aspir-) chromium picolinate 400 mcg tablet 400 mcg PO DAILY 04/26/13 05/05/24 coenzyme Q10 100 mg capsule 100 mg PO DAILY 04/26/13 05/05/24 fexofenadine 60 mg tablet 60 mg PO DAILY PRN Allergy Symptoms 04/26/13 05/05/24 omega 9-hoa-ypa-fish oil 980 1 ea PO DAILY 04/26/13 05/05/24 mg-1,400mg capsule,delayed release levothyroxine 125 mcg tablet 125 mcg PO QDAY #90 tabs 12/27/23 05/05/24 (Levoxyl) dextroamphetamine sulfate 10 mg See Rx Instructions PO DAILY #90 01/27/24 05/05/24 tablet tabs diazepam 2 mg tablet 2 mg PO ONCE PRN anxiety #14 tabs 01/27/24 05/05/24 bupropion HCl 150 mg 24 hr tablet, 150 mg PO QAM #30 tabs 03/02/24 05/05/24 extended release (Wellbutrin XL) dextroamphetamine-amphetamine 20 20 mg PO BID #60 tabs 03/02/24 05/05/24 mg tablet azelastine 137 mcg (0.1 %) nasal intranasal 04/06/24 05/05/24 spray blood sugar diagnostic (OneTouch 04/06/24 05/05/24 Ultra Test strips) cholecalciferol (vitamin D3) 50 50 mcg PO QDAY 04/06/24 05/05/24 mcg (2,000 unit) capsule chromium picolinate 400 mcg tablet 400 mcg PO QDAY 04/06/24 05/05/24 diclofenac sodium 50 mg mg PO 04/06/24 05/05/24 tablet,delayed release estradiol 0.01% (0.1 mg/gram) 1 g vaginal QWEEK 04/06/24 05/05/24 vaginal cream fluticasone propionate 50 1 spray intranasal QDAY 04/06/24 05/05/24 mcg/actuation nasal spray,suspension montelukast 10 mg tablet 10 mg PO QDAY 04/06/24 05/05/24 multivitamin (Daily Multi-Vitamin 1 tab PO QDAY 04/06/24 05/05/24 tablet) mv-mn-folic 200 mcg-vit K 15 cap PO 04/06/24 05/05/24 mcg-lutein 5 mg-zeaxanthin 1 mg capsule (PreserVision AREDS 2 Plus Multivit) omeprazole 20 mg capsule,delayed 20 mg PO QDAY 04/06/24 05/05/24 release polyethylene glycol 3350 17 4 g PO HS PRN constipation 04/06/24 05/05/24 gram/dose oral powder (Miralax) potassium chloride 10 mEq 1 meq PO 04/06/24 05/05/24 tablet,extended release hydrochlorothiazide 25 mg tablet 25 mg PO QAM #90 tabs 04/23/24 05/05/24 albuterol sulfate 90 mcg/actuation 2 puff inhalation QID PRN 05/03/24 05/05/24 aerosol inhaler (Ventolin HFA) shortness of breath or wheezing #6.7 grams amoxicillin 875 mg tablet 875 mg PO BID 7 days #14 tabs 05/03/24 05/05/24 azithromycin 250 mg tablet See Rx Instructions PO .COMPLEX #6 05/03/24 05/05/24 tabs albuterol sulfate 2.5 mg/3 mL 2.5 mg (3 mL) inhalation Q4H PRN 05/05/24 05/05/24 (0.083 %) solution for nebulization bronchospasm #75 mL Allergies Allergies Allergy/AdvReac Type Severity Reaction Status Date / Time alprazolam (From Xanax) Allergy Severe Unknown Verified 05/08/24 20:52 influenza virus vaccine, Allergy Severe Unknown Verified 05/08/24 20:52 specific bupivacaine HCl * (From Allergy Unknown Verified 05/08/24 20:52 Marcaine-Epinephrine) ibuprofen Allergy Rash Verified 05/08/24 20:52 meperidine (From Demerol) Allergy Hives Verified 05/08/24 21:17 methylparaben Allergy Hives Verified 05/08/24 21:17 morphine Allergy Itching Verified 05/08/24 21:17 naproxen sodium * (From Allergy Itching Verified 05/08/24 21:17 Aleve) propoxyphene (From Darvon) Allergy Hives Verified 05/08/24 21:17 Sulfa (Sulfonamide Allergy Edema Verified 05/08/24 21:17 Antibiotics) Opioids - Morphine Analogues AdvReac Severe Unknown Verified 05/08/24 21:17 phenytoin sodium * (From AdvReac Hives Verified 05/08/24 21:17 Dilantin) phenytoin sodium extended * AdvReac Hives Verified 05/08/24 21:17 (From Dilantin) METHYLTARABEN Allergy Severe Unknown Uncoded 05/08/24 20:52 [facility] Active Problems All Active Problems (Updated 05/08/24 @ 22:50 by Marisa Uribe MD) Hypoxia (Acute) Confusion (Acute) Atrial fibrillation with RVR (Acute) Flu (Acute) Atrial fibrillation with rapid ventricular response (Acute) Encounter for medication adjustment (Acute) Chronic asthma (Acute) Hypotension (Acute) Tachycardia (Acute) CAP (community acquired pneumonia) (Acute) Dyspnea (Acute) Cough (Acute) A-fib (Acute) Dysfunction of left eustachian tube (Acute) Calf cramp (Acute) Hyperglycemia (Acute 04/10/10) Hormone replacement therapy (Acute 04/02/11) Herpes zoster (Acute 11/17/12) Essential hypertension, benign (Acute 03/22/09) Britni thyroiditis (Acute) Thrush (Acute 06/27/13) Pilonidal cyst (Acute 01/08/14) Obesity (Acute 06/27/13) Vaginitis and vulvovaginitis (Acute) Varicose veins of lower extremity (Acute) Osteoarthritis of left knee (Acute) Hyperlipidemia (Acute 03/09/13) Tremor of hands and face (Acute 09/20/21) Numbness of foot (Acute 10/01/21) Menopausal disorder (Acute 06/11/22) Inflamed seborrheic keratosis (Acute 05/27/22) Glucose intolerance (Acute 03/26/22) Gastritis (Acute 08/19/22) Colitis (Acute 08/19/22) Bunion, left (Acute 03/26/22) Chronic ethmoidal sinusitis (Acute) Reactive airway disease (Acute) Major depressive disorder, single episode, moderate (Acute) Nondependent alcohol abuse, continuous drinking behavior (Acute) Elevated hemoglobin A1c (Acute) Depression, major, recurrent, in partial remission (Acute) Grief reaction (Acute) Generalized anxiety disorder (Acute) Back pain, acute (Acute) Acute chest pain (Acute) GERD (gastroesophageal reflux disease) (Acute) Asthma, extrinsic (Acute) Subconjunctival hemorrhage of left eye (Acute) Alcohol use disorder, moderate, dependence (Acute) Generalized anxiety disorder with panic attacks (Acute) ADHD (attention deficit hyperactivity disorder), combined type (Acute) Diverticulitis (Acute) Leg pain, left (Acute) Abscess (Acute) Post-operative pain (Acute) Palpitations (Acute) Abrasion of sclera of left eye (Acute) Abdominal pain (Acute) Medical History Medical History Constipation (08/31/14) Bronchitis, acute (12/12/09) Breast cancer (11/17/12) Ankle pain, right (09/20/21) Surgical History Surgical History History of cholecystectomy (1975) History of appendectomy (1975) Family History Family History Mother Breast cancer Father Heart attack CAD (coronary artery disease) CVA (cerebral vascular accident) Other Depressed Diabetes High blood pressure Social History Social History (Updated 05/08/24 @ 21:35 by Jo-Ann Lopez RN) Smoking Status: Never smoker Second hand tobacco smoke exposure: No Do you dip or chew tobacco?: No Do you vape?: No Patient requests smoking cessation consult: No Initiate information on smoking cessation: No Living arrangement: At home Marital Status: Living Condition: Alone and With spouse/s.o. Relationship: Physical Activity: Walking Level: Independent Do you feel safe in your home environment?: Yes Suffered physical, verbal, emotional, or financial abuse?: No History of Abuse: No ETOH Use: None Frequency: Occasional Substance Use: denies use Retired: Yes Service: No Are you following a diet prescribed by a doctor: No Are you following a special diet: No POLST Patient has POLST: No Exam Constitutional elderly appearing, anxious, mild increased wob HENMT normocephalic and head/scalp atraumatic Eyes PERRL and EOMs intact bilaterally Neck/C-Spine visual inspection normal Lymph no lymphadenopathy noted Chest inspection of chest normal Respiratory breath sounds equal bilaterally BL end expiratory wheezing Cardiovascular tachycardic rate, irregular rhythm Gastrointestinal abdomen normal to inspection, abdomen soft to palpation and nontender to palpation Psychiatry slow to answer questions, with self professed "brain fog" Results Vitals Vitals: Vital Signs - 24 hr 05/08/24 20:52 05/08/24 21:06 05/08/24 21:10 Temperature 36.7 C Temperature Source Oral Pulse Rate 149 H 138 H Respiratory Rate 16 20 Blood Pressure 110/67 O2 Saturation 98 Oxygen Delivery Method Room Air O2 Source Room air Room air Pain Intensity 5 05/08/24 21:34 05/08/24 21:46 05/08/24 22:04 Temperature Temperature Source Pulse Rate 128 H 126 H Respiratory Rate 18 18 Blood Pressure 106/72 104/79 O2 Saturation 100 100 Oxygen Delivery Method O2 Source Room air Room air Pain Intensity 5 05/08/24 22:52 05/08/24 23:00 05/08/24 23:20 Temperature Temperature Source Pulse Rate 110 H 99 Respiratory Rate 16 18 Blood Pressure 107/79 155/91 H O2 Saturation 94 96 Oxygen Delivery Method O2 Source Room air Room air Pain Intensity 4 05/08/24 23:50 05/09/24 00:12 Temperature Temperature Source Pulse Rate 96 105 H Respiratory Rate 20 18 Blood Pressure 82/62 L 101/68 O2 Saturation 96 96 Oxygen Delivery Method O2 Source Room air Room air Pain Intensity Oxygen O2 Source Room air EKG (time done) 2050: EKG releavant findings:: EKG personally interpreted by author of this note. Relevant findings are: Rate: Rate (enter#) (136) Rhythm: Atrial fibrillation QRS: QRS normal Ischemia: Normal ST segments Labs Labs: Laboratory Tests 05/08/24 05/08/2405/08/25 21:02 21:12 22:50 WBC 6.5 RBC 4.01 L Hgb 12.2 Hct 35.8 L MCV 89.3 MCH 30.4 MCHC 34.1 RDW 13.1 Plt Count 199 MPV 9.6 Neut # (Auto) 3.7 Lymph # (Auto) 2.1 Hill # (Auto) 0.7 Eos # (Auto) 0.1 Baso # (Auto) 0.0 Absolute Nucleated RBC 0.00 Nucleated RBC % 0.0 VBG pH 7.418 H VBG pCO2 38.6 L VBG pO2 33.0 VBG HCO3 25.1 VBG Total CO2 26.3 VBG O2 Saturation 53.0 L VBG Base Excess 0.4 Sodium 132 L Potassium 3.6 Chloride 99 L Carbon Dioxide 25 Anion Gap 8.0 BUN 10 Creatinine 0.8 Estimated GFR (MDRD) 71 L Glucose 124 H Lactic Acid 2.1 Calcium 8.6 Magnesium 1.5 L Total Bilirubin 0.3 AST 19 ALT 23 Alkaline Phosphatase 57 Total Protein 5.7 L Albumin 3.4 Globulin 2.3 Albumin/Globulin Ratio 1.5 Urine Color LIGHT YELLOW Urine Clarity CLEAR Urine pH 6.0 Ur Specific Williamson <=1.005 Urine Protein NEGATIVE Urine Glucose (UA) NEGATIVE Urine Ketones NEGATIVE Urine Occult Blood NEGATIVE Urine Nitrite NEGATIVE Urine Bilirubin NEGATIVE Urine Urobilinogen 0.2 (NORMAL) Ur Leukocyte Esterase NEGATIVE Urine RBC None Seen Urine WBC 0-3 Ur Squamous Epith Cells RARE Squamous Urine Bacteria None Seen Urine Culture Comments NOT INDICATED Nasal Adenovirus (PCR) NOT DETECTED Nasal B. parapertussis DNA (PCR) NOT DETECTED Nasal Coronavir 229E PCR NOT DETECTED Nasal Coronavir HKU1 PCR NOT DETECTED Nasal Coronavir NL63 PCR NOT DETECTED Nasal Coronavir OC43 PCR NOT DETECTED Nasal Enterovir/Rhinovir PCR NOT DETECTED Nasal Influ A H1 2009 PCR DETECTED A Nasal Influenza B PCR NOT DETECTED Nasal Parainfluen 1 PCR NOT DETECTED Nasal Parainfluen 2 PCR NOT DETECTED Nasal Parainfluen 3 PCR NOT DETECTED Nasal Parainfluen 4 PCR NOT DETECTED Nasal RSV (PCR) NOT DETECTED Nasal B.pertussis DNA PCR NOT DETECTED Nasal C.pneumoniae (PCR) NOT DETECTED Jefry Human Metapneumo PCR NOT DETECTED Nasal M.pneumoniae (PCR) NOT DETECTED Nasal SARS-CoV-2 (PCR) NOT DETECTED Ethyl Alcohol < 10.0 PD Medical Decision Making ED course ED course: 69yF presents to the ED with SOA, found to be in afib rvr, with borderline low blood pressure, and history of recently diagnosed pneumonia. Initial labwork included septic workup including bolus IVF, rocephin/azithromycin and duoneb for scant end expiratory wheezing. SOA subjectively improved. Her venous blood gas does not show significant co2 retention. Lactic acid is only 2.1. CXR is now clear, with pneumonia resolved at this time. no leukocytosis. Tachycardia could be due to missed doses of rate control medicaiton vs alcohol withdrawal versus another cause. I went ahead and repleted magnesium and potassium given borderline low potassium 3.6. 5mg IV metoprolol also ordered. Patient does take bisoprolol 5mg as needed for HR and has not had her evening dose. Note that tachycardia could be mediated by alcohol withdrawal given her history of alcohol dependence. Her alcohol level is negative today and she states she has cut back on her drinking recently. 1mg IV ativan ordered to treat possible withdrawal symptoms. Upon my reevaluation she feels better s/p duoneb but her o2 saturation was 90-91% RA. she is + for flu A. plan to admit telehealth. d/w hospitalist for admission at 12am. note that staffing clerk pulled me aside requesting I order additional 500cc IVF and patient asked for more ativan, stating it calmed her. She now admits to drinking a few servings of wine a couple days ago and states it is possible she could be experiencing some withdrawal symptoms. Discharge Plan Discharge Patient Disposition: ED Place in Observation Condition: Stable Clinical Impression: Flu, Atrial fibrillation with RVR, Confusion, Hypoxia Prescriptions: No Action levothyroxine [Levoxyl] 125 mcg tablet 125 mcg PO QDAY Qty: 90 3RF coenzyme Q10 100 MG capsule 100 mg PO DAILY omega 1-bgq-bdq-fish oil 1 EACH capsule,delayed release(DR/EC) 1 ea PO DAILY Lactobacillus acidophilus 1 EACH capsule 1 ea PO TID alpha lipoic acid 50 MG capsule 50 mg PO DAILY aspirin [Aspir-81] 81 MG tablet,delayed release (DR/EC) 81 mg PO DAILY chromium picolinate 400 MCG tablet 400 mcg PO DAILY fexofenadine 60 MG tablet 60 mg PO DAILY PRN (Reason: Allergy Symptoms) diazepam 2 mg tablet 2 mg PO ONCE PRN (Reason: anxiety) Qty: 14 0RF dextroamphetamine sulfate 10 mg tablet See Rx Instructions PO DAILY Qty: 90 0RF Rx Instructions: Take one tablet in the AM and 2 tablets in the afternoon ipratropium-albuterol 0.5 mg-3 mg(2.5 mg base)/3 mL solution for nebulization 3 ml inhalation ONCE Qty: 1 0RF albuterol sulfate 2.5 mg /3 mL (0.083 %) solution for nebulization 2.5 mg continuous nebulization ONCE Qty: 1 0RF azithromycin 250 mg tablet See Rx Instructions PO .COMPLEX Qty: 6 0RF Rx Instructions: For 250 mg dose pack: take 500 mg today (day 1), then 250 mg for 4 days (days 2-5) PO amoxicillin 875 mg tablet 875 mg PO BID 7 Days Qty: 14 0RF albuterol sulfate [Ventolin HFA] 90 mcg/actuation HFA aerosol inhaler 2 puff inhalation QID PRN (Reason: shortness of breath or wheezing) Qty: 6.7 2RF chromium picolinate 400 mcg tablet 400 mcg PO QDAY azelastine 137 mcg (0.1 %) spray,non-aerosol intranasal Rx Instructions: Inhale 1-2 spray into both nostrils twice a day diclofenac sodium 50 mg tablet,delayed release (DR/EC) PO Rx Instructions: Take 1 tablet by mouth once a day as needed polyethylene glycol 3350 [Miralax] 17 gram/dose powder 4 g PO HS PRN (Reason: constipation) Rx Instructions: Uses every night estradiol 0.01 % (0.1 mg/gram) cream 1 g vaginal QWEEK Rx Instructions: Insert 1 gram into vagina once a week (DME) OneTouch Ultra Test Strip See Rx Instructions .Route Rx Instructions: Use one strip via meter twice a day to check blood sugar omeprazole 20 mg capsule,delayed release(DR/EC) 20 mg PO QDAY Rx Instructions: Take 1 capsule by mouth once a day potassium chloride 10 mEq tablet extended release 1 meq PO Rx Instructions: Take 1 tablet by mouth once a day montelukast 10 mg tablet 10 mg PO QDAY Rx Instructions: Take 1 tablet by mouth once a day fluticasone propionate 50 mcg/actuation spray,suspension 1 spray intranasal QDAY Rx Instructions: administer into each nostril PreserVision AREDS 2 Plus MV 200 mcg-15 mcg- 5 mg-1 mg capsule PO multivitamin [Daily Multi-Vitamin] Tablet 1 tab PO QDAY cholecalciferol (vitamin D3) 50 mcg (2,000 unit) capsule 50 mcg PO QDAY hydrochlorothiazide 25 mg tablet 25 mg PO QAM Qty: 90 0RF Rx Instructions: Take 1 tablet by mouth every morning dextroamphetamine-amphetamine 20 mg tablet 20 mg PO BID Qty: 60 0RF bupropion HCl [Wellbutrin XL] 150 mg tablet extended release 24 hr 150 mg PO QAM Qty: 30 0RF ipratropium-albuterol 0.5 mg-3 mg(2.5 mg base)/3 mL solution for nebulization 3 ml inhalation ONCE Qty: 1 0RF albuterol sulfate 2.5 mg /3 mL (0.083 %) solution for nebulization 2.5 mg continuous nebulization ONCE Qty: 1 0RF dexamethasone sodium phosphate 4 mg/mL solution 4 mg PO ONCE Qty: 1 0RF albuterol sulfate 2.5 mg /3 mL (0.083 %) solution for nebulization 2.5 mg inhalation Q4H PRN (Reason: bronchospasm) Qty: 75 1RF Print Language: Italian Stand Alone Forms: PCP List
[2024-05-08] MEDS: SODIUM CHLORIDE 0.9% 1,500 ML IV ONE (21:50)
[2024-05-08 22:13] LABS: B. PARAPERTUSSIS- RESP PCR PAN NOT DETECTED; CORONAVIRUS 229E-RESP PCR NOT DETECTED; CORONAVIRUS HKU1-RESP PCR NOT DETECTED; CORONAVIRUS NL63-RESP PCR NOT DETECTED; CORONAVIRUS OC43-RESP PCR NOT DETECTED; HUMAN METAPNEUMOVIRUS NOT DETECTED; INFLUENZA A H1 2009- RESP PCR DETECTED; INFLUENZA B - RESP PCR PANEL NOT DETECTED; PARAINFLUENZA VIRUS 1 NOT DETECTED; PARAINFLUENZA VIRUS 2 NOT DETECTED; RHINOVIRUS/ENTEROVIRUS NOT DETECTED; RSV- RESP PCR PANEL NOT DETECTED; SARS-CoV-2 -RESP PCR PANEL NOT DETECTED
[2024-05-08 22:14] LABS: B. PERTUSSIS- RESP PCR PANEL NOT DETECTED; C. PNEUMONIAE- RESP PCR PANEL NOT DETECTED; M. PNEUMONIAE- RESP PCR PANEL NOT DETECTED; PARAINFLUENZA VIRUS 4 NOT DETECTED
[2024-05-08] MEDS: METOPROLOL 5 MG/5 ML VIAL IVP STA (22:21)
[2024-05-08] MEDS: AZITHROMYCIN INJ 500 MG in SODIUM CHLORIDE 0.9% 250 ML IV STA (22:34)
[2024-05-08] MEDS: MAGNESIUM SULFATE 2 GRAM 2 GM/50 ML BAG IV ONE (22:34)
[2024-05-08] MEDS: POTASSIUM CHLOR 10 MEQ/100 ML 10 MEQ/100 ML BAG IV STA (22:34)
[2024-05-08] MEDS: POTASSIUM CHLORIDE 20 MEQ/15 ML UDC PO STA (22:35)
[2024-05-08 23:11] LABS: BILIRUBIN,URINE NEGATIVE (NEGATIVE); GLUCOSE, URINE (UA) NEGATIVE (NEGATIVE); KETONES,URINE (UA) NEGATIVE (NEGATIVE); LEUKOCYTE ESTERASE, URINE NEGATIVE (NEGATIVE); NITRITE,URINE NEGATIVE (NEGATIVE); OCCULT BLOOD,URINE NEGATIVE (NEGATIVE); PROTEIN,URINE NEGATIVE (NEGATIVE); UROBILINOGEN,URINE 0.2 (NORMAL) E.U./dL (NORMAL)
[2024-05-08] MEDS: LORazepam 2 MG/ML VIAL IVP STA (23:15)
[2024-05-08 23:21] LABS: CLARITY,URINE CLEAR (CLEAR); WBC,URINE 0-3 /HPF (0-5)
[2024-05-08 23:22] LABS: BACTERIA,URINE None Seen /HPF (None Seen); RBC,URINE None Seen /HPF (0-5); SQUAMOUS EPITHELIAL CELL,UR RARE Squamous (<= Few)
[2024-05-09] MEDS: SODIUM CHLORIDE 0.9% 500 ML IV ONE (00:35)
[2024-05-09 01:02] LABS: LACTIC ACID, VENOUS 2.3 mmol/L (0.5-2.2)
[2024-05-09] MEDS: METOPROLOL 5 MG/5 ML VIAL IVP STA (01:13)
[2024-05-09] MEDS: LORazepam 2 MG/ML VIAL IVP STA (01:14)
--- NOTE | 2024-05-09 01:20 | HISTORY & PHYSICAL EXAMINATION ---
Chief Complaint Chief Complaint Chief Complaint: shortness of breath History of Present Illness Admitted From Admitted From:: ER History Obtained From Records Reviewed: Yes History obtained from: Patient and ER staff History of Present Illness HPI Comment/Other: 69 yo F who presented with 6 days of shortness of breath. She states she states she started having symptoms the Wednesday before last, went to urgent care and was placed on antibiotics and breathing treatments. She states they did not test her for the flu and she found out here she had the flu. She went back to urgent care later in the week and was told to come to the ER. She is up to date with her flu and covid vaccines. She called EMS who brought her in to the ER. Per CEMENT LOADER, she dropped to 90% while getting to bathroom in her room and has been tachypneic. She told ER staff she drinks alcohol occasionally but frequency unknown. In ER, she received IVF, rocephin, azithro, ativan. Review of Systems A comprehensive ROS was completed, pertinent positives and negatives are noted in the HPI and all other systems reviewed negative. [facility] Active Problems All Active Problems (Updated 05/08/24 @ 22:50 by Marisa Uribe MD) Hypoxia (Acute) Confusion (Acute) Atrial fibrillation with RVR (Acute) Flu (Acute) Atrial fibrillation with rapid ventricular response (Acute) Encounter for medication adjustment (Acute) Chronic asthma (Acute) Hypotension (Acute) Tachycardia (Acute) CAP (community acquired pneumonia) (Acute) Dyspnea (Acute) Cough (Acute) A-fib (Acute) Dysfunction of left eustachian tube (Acute) Calf cramp (Acute) Hyperglycemia (Acute 04/10/10) Hormone replacement therapy (Acute 04/02/11) Herpes zoster (Acute 11/17/12) Essential hypertension, benign (Acute 03/22/09) Britni thyroiditis (Acute) Thrush (Acute 06/27/13) Pilonidal cyst (Acute 01/08/14) Obesity (Acute 06/27/13) Vaginitis and vulvovaginitis (Acute) Varicose veins of lower extremity (Acute) Osteoarthritis of left knee (Acute) Hyperlipidemia (Acute 03/09/13) Tremor of hands and face (Acute 09/20/21) Numbness of foot (Acute 10/01/21) Menopausal disorder (Acute 06/11/22) Inflamed seborrheic keratosis (Acute 05/27/22) Glucose intolerance (Acute 03/26/22) Gastritis (Acute 08/19/22) Colitis (Acute 08/19/22) Bunion, left (Acute 03/26/22) Chronic ethmoidal sinusitis (Acute) Reactive airway disease (Acute) Major depressive disorder, single episode, moderate (Acute) Nondependent alcohol abuse, continuous drinking behavior (Acute) Elevated hemoglobin A1c (Acute) Depression, major, recurrent, in partial remission (Acute) Grief reaction (Acute) Generalized anxiety disorder (Acute) Back pain, acute (Acute) Acute chest pain (Acute) GERD (gastroesophageal reflux disease) (Acute) Asthma, extrinsic (Acute) Subconjunctival hemorrhage of left eye (Acute) Alcohol use disorder, moderate, dependence (Acute) Generalized anxiety disorder with panic attacks (Acute) ADHD (attention deficit hyperactivity disorder), combined type (Acute) Diverticulitis (Acute) Leg pain, left (Acute) Abscess (Acute) Post-operative pain (Acute) Palpitations (Acute) Abrasion of sclera of left eye (Acute) Abdominal pain (Acute) Medical History Medical History Constipation (08/31/14) Bronchitis, acute (12/12/09) Breast cancer (11/17/12) Ankle pain, right (09/20/21) Surgical History Surgical History History of cholecystectomy (1975) History of appendectomy (1975) Family History Family History Mother Breast cancer Father Heart attack CAD (coronary artery disease) CVA (cerebral vascular accident) Other Depressed Diabetes High blood pressure Social History Social History (Updated 05/08/24 @ 21:35 by Jo-Ann Lopez RN) Smoking Status: Never smoker Second hand tobacco smoke exposure: No Do you dip or chew tobacco?: No Do you vape?: No Patient requests smoking cessation consult: No Initiate information on smoking cessation: No Living arrangement: At home Marital Status: Living Condition: Alone and With spouse/s.o. Relationship: Physical Activity: Walking Level: Independent Do you feel safe in your home environment?: Yes Suffered physical, verbal, emotional, or financial abuse?: No History of Abuse: No ETOH Use: None Frequency: Occasional Substance Use: denies use Retired: Yes Service: No Are you following a diet prescribed by a doctor: No Are you following a special diet: No POLST Patient has POLST: No POLST Status: DNR Meds/Allgy Home Medications Ambulatory Orders Medication Instructions Recorded Confirmed Lactobacillus acidophilus 100 1 ea PO TID 04/26/13 05/05/24 million cell capsule alpha lipoic acid 50 mg capsule 50 mg PO DAILY 04/26/13 05/05/24 aspirin 81 mg tablet,delayed 81 mg PO DAILY 04/26/13 05/05/24 release (Aspir-) chromium picolinate 400 mcg tablet 400 mcg PO DAILY 04/26/13 05/05/24 coenzyme Q10 100 mg capsule 100 mg PO DAILY 04/26/13 05/05/24 fexofenadine 60 mg tablet 60 mg PO DAILY PRN Allergy Symptoms 04/26/13 05/05/24 omega 7-cir-ywv-fish oil 980 1 ea PO DAILY 04/26/13 05/05/24 mg-1,400mg capsule,delayed release levothyroxine 125 mcg tablet 125 mcg PO QDAY #90 tabs 12/27/23 05/05/24 (Levoxyl) dextroamphetamine sulfate 10 mg See Rx Instructions PO DAILY #90 01/27/24 05/05/24 tablet tabs diazepam 2 mg tablet 2 mg PO ONCE PRN anxiety #14 tabs 01/27/24 05/05/24 bupropion HCl 150 mg 24 hr tablet, 150 mg PO QAM #30 tabs 03/02/24 05/05/24 extended release (Wellbutrin XL) dextroamphetamine-amphetamine 20 20 mg PO BID #60 tabs 03/02/24 05/05/24 mg tablet azelastine 137 mcg (0.1 %) nasal intranasal 04/06/24 05/05/24 spray blood sugar diagnostic (OneTouch 04/06/24 05/05/24 Ultra Test strips) cholecalciferol (vitamin D3) 50 50 mcg PO QDAY 04/06/24 05/05/24 mcg (2,000 unit) capsule chromium picolinate 400 mcg tablet 400 mcg PO QDAY 04/06/24 05/05/24 diclofenac sodium 50 mg mg PO 04/06/24 05/05/24 tablet,delayed release estradiol 0.01% (0.1 mg/gram) 1 g vaginal QWEEK 04/06/24 05/05/24 vaginal cream fluticasone propionate 50 1 spray intranasal QDAY 04/06/24 05/05/24 mcg/actuation nasal spray,suspension montelukast 10 mg tablet 10 mg PO QDAY 04/06/24 05/05/24 multivitamin (Daily Multi-Vitamin 1 tab PO QDAY 04/06/24 05/05/24 tablet) mv-mn-folic 200 mcg-vit K 15 cap PO 04/06/24 05/05/24 mcg-lutein 5 mg-zeaxanthin 1 mg capsule (PreserVision AREDS 2 Plus Multivit) omeprazole 20 mg capsule,delayed 20 mg PO QDAY 04/06/24 05/05/24 release polyethylene glycol 3350 17 4 g PO HS PRN constipation 04/06/24 05/05/24 gram/dose oral powder (Miralax) potassium chloride 10 mEq 1 meq PO 04/06/24 05/05/24 tablet,extended release hydrochlorothiazide 25 mg tablet 25 mg PO QAM #90 tabs 04/23/24 05/05/24 albuterol sulfate 90 mcg/actuation 2 puff inhalation QID PRN 05/03/24 05/05/24 aerosol inhaler (Ventolin HFA) shortness of breath or wheezing #6.7 grams amoxicillin 875 mg tablet 875 mg PO BID 7 days #14 tabs 05/03/24 05/05/24 azithromycin 250 mg tablet See Rx Instructions PO .COMPLEX #6 05/03/24 05/05/24 tabs albuterol sulfate 2.5 mg/3 mL 2.5 mg (3 mL) inhalation Q4H PRN 05/05/24 05/05/24 (0.083 %) solution for nebulization bronchospasm #75 mL Allergies Allergies Allergy/AdvReac Type Severity Reaction Status Date / Time alprazolam (From Xanax) Allergy Severe Unknown Verified 05/08/24 20:52 influenza virus vaccine, Allergy Severe Unknown Verified 05/08/24 20:52 specific bupivacaine HCl * (From Allergy Unknown Verified 05/08/24 20:52 Marcaine-Epinephrine) ibuprofen Allergy Rash Verified 05/08/24 20:52 meperidine (From Demerol) Allergy Hives Verified 05/08/24 21:17 methylparaben Allergy Hives Verified 05/08/24 21:17 morphine Allergy Itching Verified 05/08/24 21:17 naproxen sodium * (From Allergy Itching Verified 05/08/24 21:17 Aleve) propoxyphene (From Darvon) Allergy Hives Verified 05/08/24 21:17 Sulfa (Sulfonamide Allergy Edema Verified 05/08/24 21:17 Antibiotics) Opioids - Morphine Analogues AdvReac Severe Unknown Verified 05/08/24 21:17 phenytoin sodium * (From AdvReac Hives Verified 05/08/24 21:17 Dilantin) phenytoin sodium extended * AdvReac Hives Verified 05/08/24 21:17 (From Dilantin) METHYLTARABEN Allergy Severe Unknown Uncoded 05/08/24 20:52 Exam Exam General: awake, no acute distress Lungs: clear Heart: regular rhythm, rate Abdomen: soft, nontender, nondistended, normal bowel sounds Musculoskeletal: Normal range of motion and strength, No tenderness Skin: Skin is warm, dry Neurologic: alert, oriented Conclusion/Plan Problem List (1) Atrial fibrillation with rapid ventricular response: (2) Flu: Plan Assessment/Plan: 1. Atrial fibrillation with RVR s/p watchman; suspect exacerbated by flu, recd Lopressor in ER; IVF 2. Influenza A supp tx; out of window for tamiflu 3. Acute respiratory distress increased work of breathing; has not de- saturated to be hypoxic failure 4. Altered mental status seems improved 5. HTN 6. Britni thyroiditis 7. Reactive airway disease uses inhaler regularly 8. GERD 9. Depression, ADHD 10. VTE prophylaxis lovenox 11. Dispo admit to med/surg tele Code status discussed, she wishes to be DNR/DNI without chest compressions or intubation. Discussed plan of care with patient and her bedside RN. Case discussed at length with ER provider. Notes reviewed. This H&P was accomplished using Telemedicine services via [facility] and assistance for bedside assessment was carried out, interpreted and reported to me by the bedside nurse. Time spent 75min educating /interviewing patient, reviewing chart and coordinating care for patient. Lab Results Lab results reviewed: Yes 05/08/24 21:02 05/08/24 21:02 Telemedicine Consult Details Provider Location & Consult Time Telemedicine consultation conducted via videoconferencing?: Yes List names and roles of persons who participated in consult:: ER provider, CEMENT LOADER, patient, myself Telemedicine provider location:: [place]
[2024-05-09] MEDS ORDERED: DIAZEPAM 2 MG PO PRN (01:45)
[2024-05-09] MEDS: IPRATROPIUM/ALBUTEROL 3 ML NEB INH SCH ×2 (02:17→11:26)
[2024-05-09] MEDS: SODIUM CHLORIDE 0.9% 1,000 ML IV ONE (02:32)
[2024-05-09] MEDS: SODIUM CHLORIDE FLUSH 0.9% 10 ML SYRINGE IVP SCH (02:33)
[2024-05-09 04:35] LABS: ALBUMIN 3.3 g/dL (3.2-5.5); ALBUMIN/GLOBULIN RATIO 1.3 (1.0-2.2); BILIRUBIN,TOTAL 0.3 mg/dL (0.2-1.0); CALCIUM 7.8 mg/dL (8.5-10.3); CREATININE 0.6 mg/dL (0.6-1.3); TOTAL PROTEIN 5.9 g/dL (6.4-8.9)
[2024-05-09] MEDS: LEVOTHYROXINE 125 MCG TABLET PO SCH (06:20)
[2024-05-09] MEDS: LACTOBACILLUS RHAMNOSUS GG CAPSULE PO SCH (06:20)
[2024-05-09] MEDS: ENOXAPARIN 40 MG/0.4 ML SYRINGE SUBQ SCH (08:23)
[2024-05-09] MEDS: FLUTICASONE NASAL SPRAY NAS SCH (08:24)
[2024-05-09] MEDS: buPROPion XL 150 MG TABLET PO SCH (08:25)
[2024-05-09] MEDS: MONTELUKAST 10 MG TABLET PO SCH (08:25)
[2024-05-09] MEDS: hydroCHLOROthiazide 25 MG TABLET PO SCH (08:25)
[2024-05-09] MEDS: PANTOPRAZOLE 40 MG TABLET PO SCH (08:25)
[2024-05-09] MEDS: ASPIRIN EC 81 MG TABLET PO SCH (08:25)
[2024-05-09 11:52] LABS: THYROID STIMULATING HORMONE 0.68 uIU/mL (0.34-5.60)
[2024-05-09] MEDS: METOPROLOL SUCCINATE 25 MG TABLET PO SCH (12:00)
[2024-05-09] MEDS: methylPREDNISolone SUCCINATE 40 MG/ML VIAL IVP SCH (12:00)
[2024-05-09] MEDS ORDERED: iohexoL-300 100 ML VIAL ONE (12:15)
[2024-05-09] MEDS: iohexoL-300 100 ML VIAL IVP ONE (12:48)
--- NOTE | 2024-05-09 13:23 | CT Report ---
PROCEDURE: CT Soft Tissue Neck W INDICATIONS: swelling; concern for abscess CONTRAST: 100ml omni 300 TECHNIQUE: After the administration of intravenous contrast, 3.0 mm axial sections acquired from the sella to th e aortic arch. Additional oblique axial 3.0 mm sections acquired through the pharynx. 3 mm thick co ronald reformats were generated. For radiation dose reduction, the following was used: automated exp osure control, adjustment of mA and/or kV according to patient size. COMPARISON: None. FINDINGS: Image quality: Excellent. Lymph nodes: Borderline enlarged lymph nodes seen throughout the neck. Vessels: Visualized vasculature appears patent. Neck spaces: There is edema with scattered fluid in the subcutaneous fat of the lower neck bilaterall y, right greater than left. Glands: The submandibular glands appear edematous bilaterally. There is diffuse thickening at the le jasiel of the posterior oropharynx extending to the region of the tonsils. No localized fluid collection is identified. Hazy appearance of the fat planes extends to the level of the hyoid bone. The thyroid is normal in size and there are no incidental findings. Miscellaneous: Visualized brain and orbits appear normal. Lung apices appear clear. Superficial so ft tissues appear normal. Bones: No suspicious bony lesions. Visualized sinuses and mastoids appear unremarkable. IMPRESSION: Edema within the lower neck as described above with scattered areas of fluid. No organized fluid georges ection such as abscess. However, overall appearance is most suggestive of inflammation/infection. CLINICAL RECOMMENDATION STATEMENTS: In patients <35 years with an ITN detected on CT, MRI, or extrathyroidal ultrasound, the Committee re commends further evaluation with dedicated thyroid ultrasound if the nodule is "e1 cm and has no susp icious imaging features, and if the patient has normal life expectancy. In patients "e35 years with an ITN detected on CT, MRI, or extrathyroidal ultrasound, the Committee r ecommends further evaluation with dedicated thyroid ultrasound if the nodule is "e1.5 cm and has no s uspicious imaging features, and if the patient has normal life expectancy. (ACR, 2014) Reviewed by: Fartun Altman MD on 05/09/2024 1:22 PM PST Approved by: Fartun Altman MD on 05/09/2024 1:22 PM PST Station ID: [id number]
[2024-05-09] MEDS: ACETAMINOPHEN 325 MG TABLET PO PRN (15:59)
[2024-05-09] MEDS: diazePAM 5 MG TABLET PO PRN (16:00)
[2024-05-09] MEDS: LORATADINE 10 MG TABLET PO PRN (16:00)
--- NOTE | 2024-05-09 16:01 | PHARMACY PROGRESS NOTE ---
Best Possible Medication History Admit Date and Time: 05/09/24 0042 Home Medications Medication Instructions Recorded Confirmed Type Lactobacillus acidophilus 100 1 ea PO TID 04/26/13 05/09/24 History million cell capsule alpha lipoic acid 50 mg capsule 50 mg PO DAILY 04/26/13 05/09/24 History aspirin 81 mg tablet,delayed 81 mg PO DAILY 04/26/13 05/09/24 History release (Aspir-) chromium picolinate 400 mcg tablet 400 mcg PO DAILY 04/26/13 05/09/24 History coenzyme Q10 100 mg capsule 100 mg PO DAILY 04/26/13 05/09/24 History fexofenadine 60 mg tablet 60 mg PO DAILY PRN Allergy Symptoms 04/26/13 05/09/24 History omega 8-qwe-dli-fish oil 980 1 ea PO DAILY 04/26/13 05/09/24 History mg-1,400mg capsule,delayed release levothyroxine 125 mcg tablet 125 mcg PO QDAY #90 tabs 12/27/23 05/09/24 Rx (Levoxyl) dextroamphetamine sulfate 10 mg See Rx Instructions PO DAILY #90 01/27/24 05/09/24 Rx tablet tabs bupropion HCl 150 mg 24 hr tablet, 150 mg PO QAM #30 tabs 03/02/24 05/09/24 Rx extended release (Wellbutrin XL) dextroamphetamine-amphetamine 20 20 mg PO BID #60 tabs 03/02/24 05/09/24 Rx mg tablet azelastine 137 mcg (0.1 %) nasal 1 spray intranasal ONCE PRN 04/06/24 05/09/24 History spray allergy symptoms blood sugar diagnostic (OneTouch 04/06/24 05/05/24 History Ultra Test strips) cholecalciferol (vitamin D3) 50 50 mcg PO QDAY 04/06/24 05/09/24 History mcg (2,000 unit) capsule diclofenac sodium 50 mg 50 mg PO ONCE PRN pain 04/06/24 05/09/24 History tablet,delayed release estradiol 0.01% (0.1 mg/gram) 1 g vaginal QWEEK 04/06/24 05/09/24 History vaginal cream fluticasone propionate 50 1 spray intranasal DAILY 04/06/24 05/09/24 History mcg/actuation nasal spray,suspension montelukast 10 mg tablet 10 mg PO HS 04/06/24 05/09/24 History multivitamin (Daily Multi-Vitamin 1 tab PO QDAY 04/06/24 05/09/24 History tablet) mv-mn-folic 200 mcg-vit K 15 1 cap PO DAILY 04/06/24 05/09/24 History mcg-lutein 5 mg-zeaxanthin 1 mg capsule (PreserVision AREDS 2 Plus Multivit) omeprazole 20 mg capsule,delayed 20 mg PO DAILY 04/06/24 05/09/24 History release polyethylene glycol 3350 17 17 g PO HS PRN constipation 04/06/24 05/09/24 History gram/dose oral powder (Miralax) potassium chloride 10 mEq 10 meq PO DAILY 04/06/24 05/09/24 History tablet,extended release hydrochlorothiazide 25 mg tablet 25 mg PO QAM #90 tabs 04/23/24 05/09/24 Rx albuterol sulfate 90 mcg/actuation 2 puff inhalation QID PRN 05/03/24 05/09/24 Rx aerosol inhaler (Ventolin HFA) shortness of breath or wheezing #6.7 grams amoxicillin 875 mg tablet 875 mg PO BID 7 days #14 tabs 05/03/24 05/09/24 Rx diazepam 2 mg tablet 2 mg PO DAILY PRN anxiety 05/09/24 05/09/24 History fluticasone propionate 230 2 inh inhalation BID 05/09/24 05/09/24 History mcg-salmeterol 21 mcg/actuation HFA inhaler Processed by: Pharmacy Medications reviewed in ED?: Yes Medication History completed: Yes Patient Interview: Completed Secondary Source(s): Pharmacy records and Insurance records [facility] Statement: As the person ultimately responsible for medication therapy, providers are able to order a medication from an existing home medication list in [facility] via the "Reconcile Routine" prior to Confirmation of that medication by support engineer. Such practice is discouraged except when the physician, in their clinical judgment, deems that a medical need exists for a medication without regard to previous use.
[2024-05-09] MEDS ORDERED: diazePAM 5 MG TABLET PO PRN (17:34)
[2024-05-09] MEDS: HYDROcod/ACETAM 5/325 MG TABLET PO PRN (18:55)
[2024-05-09] MEDS: diazePAM 5 MG TABLET PO ONE (18:55)
[2024-05-09] MEDS: DEXAMETHASONE 10 MG/ML VIAL IVP SCH (18:56)
--- NOTE | 2024-05-09 22:28 | CONSULTATION NOTE ---
Referring Provider Name of Referring Provider:: TrinaLucilleAnabell Consult Date: 05/09/24 Chief Complaint Chief Complaint Chief Complaint: neck swelling History of Present Illness History Obtained From History obtained from: Patient History of Present Illness HPI Comment/Other: 69 yo F admitted for respiratory illness. Yesterday she began developing swelling of the bilateral submanidbular area. It was mosly painless then. Today it worsened acutely. It also became painful today She denies fever, chills, nausea, vomiting, difficulty swallowing. She endorses difficulty breathing. [facility] Active Problems All Active Problems (Updated 05/08/24 @ 22:50 by Marisa Uribe MD) Hypoxia (Acute) Confusion (Acute) Atrial fibrillation with RVR (Acute) Flu (Acute) Atrial fibrillation with rapid ventricular response (Acute) Encounter for medication adjustment (Acute) Chronic asthma (Acute) Hypotension (Acute) Tachycardia (Acute) CAP (community acquired pneumonia) (Acute) Dyspnea (Acute) Cough (Acute) A-fib (Acute) Dysfunction of left eustachian tube (Acute) Calf cramp (Acute) Hyperglycemia (Acute 04/10/10) Hormone replacement therapy (Acute 04/02/11) Herpes zoster (Acute 11/17/12) Essential hypertension, benign (Acute 03/22/09) Britni thyroiditis (Acute) Thrush (Acute 06/27/13) Pilonidal cyst (Acute 01/08/14) Obesity (Acute 06/27/13) Vaginitis and vulvovaginitis (Acute) Varicose veins of lower extremity (Acute) Osteoarthritis of left knee (Acute) Hyperlipidemia (Acute 03/09/13) Tremor of hands and face (Acute 09/20/21) Numbness of foot (Acute 10/01/21) Menopausal disorder (Acute 06/11/22) Inflamed seborrheic keratosis (Acute 05/27/22) Glucose intolerance (Acute 03/26/22) Gastritis (Acute 08/19/22) Colitis (Acute 08/19/22) Bunion, left (Acute 03/26/22) Chronic ethmoidal sinusitis (Acute) Reactive airway disease (Acute) Major depressive disorder, single episode, moderate (Acute) Nondependent alcohol abuse, continuous drinking behavior (Acute) Elevated hemoglobin A1c (Acute) Depression, major, recurrent, in partial remission (Acute) Grief reaction (Acute) Generalized anxiety disorder (Acute) Back pain, acute (Acute) Acute chest pain (Acute) GERD (gastroesophageal reflux disease) (Acute) Asthma, extrinsic (Acute) Subconjunctival hemorrhage of left eye (Acute) Alcohol use disorder, moderate, dependence (Acute) Generalized anxiety disorder with panic attacks (Acute) ADHD (attention deficit hyperactivity disorder), combined type (Acute) Diverticulitis (Acute) Leg pain, left (Acute) Abscess (Acute) Post-operative pain (Acute) Palpitations (Acute) Abrasion of sclera of left eye (Acute) Abdominal pain (Acute) Medical History Medical History Constipation (08/31/14) Bronchitis, acute (12/12/09) Breast cancer (11/17/12) Ankle pain, right (09/20/21) Surgical History Surgical History History of cholecystectomy (1975) History of appendectomy (1975) Family History Family History Mother Breast cancer Father Heart attack CAD (coronary artery disease) CVA (cerebral vascular accident) Other Depressed Diabetes High blood pressure Social History Social History (Updated 05/08/24 @ 21:35 by Jo-Ann Lopez RN) Smoking Status: Never smoker Second hand tobacco smoke exposure: No Do you dip or chew tobacco?: No Do you vape?: No Patient requests smoking cessation consult: No Initiate information on smoking cessation: No Living arrangement: At home Marital Status: Living Condition: Alone and With spouse/s.o. Relationship: Physical Activity: Walking Level: Assisted Do you feel safe in your home environment?: Yes Suffered physical, verbal, emotional, or financial abuse?: No History of Abuse: No ETOH Use: None Frequency: Occasional Substance Use: denies use Retired: Yes Service: No Are you following a diet prescribed by a doctor: No Are you following a special diet: No POLST Patient has POLST: No POLST Status: DNR Meds/Allgy Home Medications Ambulatory Orders Medication Instructions Recorded Confirmed Lactobacillus acidophilus 100 1 ea PO TID 04/26/13 05/09/24 million cell capsule alpha lipoic acid 50 mg capsule 50 mg PO DAILY 04/26/13 05/09/24 aspirin 81 mg tablet,delayed 81 mg PO DAILY 04/26/13 05/09/24 release (Aspir-) chromium picolinate 400 mcg tablet 400 mcg PO DAILY 04/26/13 05/09/24 coenzyme Q10 100 mg capsule 100 mg PO DAILY 04/26/13 05/09/24 fexofenadine 60 mg tablet 60 mg PO DAILY PRN Allergy Symptoms 04/26/13 05/09/24 omega 2-zhm-lvx-fish oil 980 1 ea PO DAILY 04/26/13 05/09/24 mg-1,400mg capsule,delayed release levothyroxine 125 mcg tablet 125 mcg PO QDAY #90 tabs 12/27/23 05/09/24 (Levoxyl) dextroamphetamine sulfate 10 mg See Rx Instructions PO DAILY #90 01/27/24 05/09/24 tablet tabs bupropion HCl 150 mg 24 hr tablet, 150 mg PO QAM #30 tabs 03/02/24 05/09/24 extended release (Wellbutrin XL) dextroamphetamine-amphetamine 20 20 mg PO BID #60 tabs 03/02/24 05/09/24 mg tablet azelastine 137 mcg (0.1 %) nasal 1 spray intranasal ONCE PRN 04/06/24 05/09/24 spray allergy symptoms blood sugar diagnostic (OneTouch 04/06/24 05/05/24 Ultra Test strips) cholecalciferol (vitamin D3) 50 50 mcg PO QDAY 04/06/24 05/09/24 mcg (2,000 unit) capsule diclofenac sodium 50 mg 50 mg PO ONCE PRN pain 04/06/24 05/09/24 tablet,delayed release estradiol 0.01% (0.1 mg/gram) 1 g vaginal QWEEK 04/06/24 05/09/24 vaginal cream fluticasone propionate 50 1 spray intranasal DAILY 04/06/24 05/09/24 mcg/actuation nasal spray,suspension montelukast 10 mg tablet 10 mg PO HS 04/06/24 05/09/24 multivitamin (Daily Multi-Vitamin 1 tab PO QDAY 04/06/24 05/09/24 tablet) mv-mn-folic 200 mcg-vit K 15 1 cap PO DAILY 04/06/24 05/09/24 mcg-lutein 5 mg-zeaxanthin 1 mg capsule (PreserVision AREDS 2 Plus Multivit) omeprazole 20 mg capsule,delayed 20 mg PO DAILY 04/06/24 05/09/24 release polyethylene glycol 3350 17 17 g PO HS PRN constipation 04/06/24 05/09/24 gram/dose oral powder (Miralax) potassium chloride 10 mEq 10 meq PO DAILY 04/06/24 05/09/24 tablet,extended release hydrochlorothiazide 25 mg tablet 25 mg PO QAM #90 tabs 04/23/24 05/09/24 albuterol sulfate 90 mcg/actuation 2 puff inhalation QID PRN 05/03/24 05/09/24 aerosol inhaler (Ventolin HFA) shortness of breath or wheezing #6.7 grams amoxicillin 875 mg tablet 875 mg PO BID 7 days #14 tabs 05/03/24 05/09/24 diazepam 2 mg tablet 2 mg PO DAILY PRN anxiety 05/09/24 05/09/24 fluticasone propionate 230 2 inh inhalation BID 05/09/24 05/09/24 mcg-salmeterol 21 mcg/actuation HFA inhaler Allergies Allergies Allergy/AdvReac Type Severity Reaction Status Date / Time alprazolam (From Xanax) Allergy Severe Unknown Verified 05/08/24 20:52 influenza virus vaccine, Allergy Severe Unknown Verified 05/08/24 20:52 specific bupivacaine HCl * (From Allergy Unknown Verified 05/08/24 20:52 Marcaine-Epinephrine) ibuprofen Allergy Rash Verified 05/08/24 20:52 meperidine (From Demerol) Allergy Hives Verified 05/08/24 21:17 methylparaben Allergy Hives Verified 05/08/24 21:17 morphine Allergy Itching Verified 05/08/24 21:17 naproxen sodium * (From Allergy Itching Verified 05/08/24 21:17 Aleve) propoxyphene (From Darvon) Allergy Hives Verified 05/08/24 21:17 Sulfa (Sulfonamide Allergy Edema Verified 05/08/24 21:17 Antibiotics) Opioids - Morphine Analogues AdvReac Severe Unknown Verified 05/08/24 21:17 phenytoin sodium * (From AdvReac Hives Verified 05/08/24 21:17 Dilantin) phenytoin sodium extended * AdvReac Hives Verified 05/08/24 21:17 (From Dilantin) Results Lab Results 05/08/24 21:02 05/09/24 04:13 Other Lab Results: Lab Results x24hrs 05/09/24 05/09/24 05/08/24 Range/Units 04:13 00:39 22:50 Sodium 134 L (135-145) mmol/L Potassium 4.0 (3.5-4.5) mmol/L Chloride 104 (101-111) mmol/L Carbon Dioxide 25 (21-32) mmol/L Anion Gap 5.0 L (6-13) BUN 8 (6-20) mg/dL Creatinine 0.6 (0.6-1.3) mg/dL Estimated GFR (MDRD) 99 (>89) Glucose 88 (74-104) mg/dL Lactic Acid 1.8 2.3 H (0.5-2.2) mmol/L Calcium 7.8 L (8.5-10.3) mg/dL Magnesium 1.9 (1.7-2.3) mg/dL Total Bilirubin 0.3 (0.2-1.0) mg/dL AST 76 H (10-42) IU/L ALT 66 H (10-60) IU/L Alkaline Phosphatase 71 (42-121) IU/L Total Protein 5.9 L (6.4-8.9) g/dL Albumin 3.3 (3.2-5.5) g/dL Globulin 2.6 (2.1-4.2) g/dL Albumin/Globulin Ratio 1.3 (1.0-2.2) TSH 0.68 (0.34-5.60) uIU/mL Urine Color LIGHT YELLOW Urine Clarity CLEAR (CLEAR) Urine pH 6.0 (5.0-7.5) PH Ur Specific [place] <=1.005 (1.002-1.030) Urine Protein NEGATIVE (NEGATIVE) mg/dL Urine Glucose (UA) NEGATIVE (NEGATIVE) mg/dL Urine Ketones NEGATIVE (NEGATIVE) mg/dL Urine Occult Blood NEGATIVE (NEGATIVE) Urine Nitrite NEGATIVE (NEGATIVE) Urine Bilirubin NEGATIVE (NEGATIVE) Urine Urobilinogen 0.2 (NORMAL) (NORMAL) E.U./dL Ur Leukocyte Esterase NEGATIVE (NEGATIVE) Urine RBC None Seen (0-5) /HPF Urine WBC 0-3 (0-5) /HPF Ur Squamous Epith Cells RARE Squamous (<= Few) Urine Bacteria None Seen (None Seen) /HPF Urine Culture Comments NOT INDICATED Conclusion and Plan Diagnosis Diagnosis: Sialoadenitis of bilateral submandibular salivary gland Plan Plan: We anticipate nonsurgical management.Recommended treatment is monitoring for decreased swelling and decreased pain. Consultation Note Consultation Note: 69-year-old female with 2 days of worsening sialoadenitis of the bilateral submandibular salivary glands. This is in the setting of hospitalization for Respiratory infection.Her white count is not elevated. There is no purulence from the bilateral Fly's ducts. The overlying skin is not particularly cellulitic or indurated. The clinical exam is most consistent with a viral sialoadenitis.This is also supported by the rapid progression of the disease And that it is bilateral. A CT soft tissue neck demonstrated no clear fluid collection. History and clinical exam is not consistent with odontogenic etiology OMFS will sign off. Thank you for including me in the care of this patient. If you have any questions please reach out to me at [phone] Joseph Sutton DDS Review of Systems Status of ROS: 10 or more systems reviewed and unremarkable except as noted in history and below Exam HENMT A focused exam was performed. Mouth opening within normal limits. Occlusion stable and repeatable. No swelling or edema intraorally. Dentition normal. Severe dry mouth.No tenderness of any of the teeth. No tenderness of any of the apical areas. No saliva can be expressed from the right or left Rush's duct. Neck/C-Spine Marked swelling of the bilateral submandibular areas, with a bulge most prominent in the area of the submandibular salivary gland. The submandibular salivary gland is palpable bilaterally and tender. The skin overlying the swelling is not cellulitic. There is no erythema. There is no submental swelling. The swelling does not extend below the thyroid cartilage. Lymph lymphadenopathy noted
[2024-05-10] MEDS: IPRATROPIUM/ALBUTEROL 3 ML NEB INH PRN (01:10)
[2024-05-10] MEDS: diazePAM 5 MG TABLET PO PRN (03:02)
[2024-05-10 06:00] LABS: HCT - HEMATOCRIT 34.3 % (37.0-47.0); HGB - HEMOGLOBIN 12.2 g/dL (12.0-16.0); MEAN CORPUSCULAR HEMOGLOBIN 31.4 pg (27.0-31.0); MEAN CORPUSCULAR HGB CONC 35.6 g/dL (32.0-36.0); MEAN CORPUSCULAR VOLUME 88.2 fL (81.0-99.0); MEAN PLATELET VOLUME 9.8 fL (7.9-10.8); RED BLOOD COUNT 3.89 10^6/uL (4.20-5.40); RED CELL DISTRIBUTION WIDTH 13.2 % (12.0-15.0); WHITE BLOOD COUNT 6.2 x10^3/uL (4.8-10.8)
[2024-05-10 06:14] LABS: CALCIUM 8.3 mg/dL (8.5-10.3); CREATININE 0.5 mg/dL (0.6-1.3); MAGNESIUM 1.7 mg/dL (1.7-2.3); POTASSIUM 4.2 mmol/L (3.5-4.5)
[2024-05-10] MEDS: SODIUM CHLORIDE FLUSH 0.9% 10 ML SYRINGE IVP PRN (06:56)
[2024-05-10] MEDS: LACTATED RINGERS 1,000 ML IV ONE (08:27)
[2024-05-10] MEDS ORDERED: MAGNESIUM SULFATE 1 GM/2 ML VIAL IVP SCH (10:00)
[2024-05-10] MEDS ORDERED: SODIUM CHLORIDE 0.9% 50 ML IV ONE (10:33)
[2024-05-10] MEDS: polyethylene glycoL 3350 17 GM PACKET PO SCH (10:50)
[2024-05-10] MEDS: MAGNESIUM SULFATE 1 GM in SODIUM CHLORIDE 0.9% 50 ML IV ONE (11:30)
--- NOTE | 2024-05-10 13:02 | PROVIDER PROGRESS NOTE ---
Subjective Prog Note Date Prog Note Date: 05/10/24 Prog Note Time: 12:53 Subjective Pt reports feeling: No change Subjective: Patient is a 69 year old female with a history of atrial fibrillation with RVR, asthma, and hypertension. She presented to the ED last night with difficulty breathing and shortness of breath for the past 5 days. She tested positive for influenza A while in the ED. Patient was seen at a walk-in clinic on 05/03/24 for community acquired pneumonia and prescribed amoxicillin and azithromycin, which she stated she did not finish. She also was prescribed a course of dexamethasone 6 mg once daily for 3 days. On 05/05/24, she felt like her breathing was getting worse so she returned to the walk-in clinic where she was found to be in A-fib with RVR and was transferred to the ED. She was sitting on the edge of the bed when I saw her today, finishing her lunch. She stated she is still having a hard time breathing and felt like she wanted medication to help her cough up the phlegm in her chest. Patient stated she has pain in her lungs that she describes as a burning sensation. She has a history of GERD, but says this pain is different. Her lungs showed bilateral expiratory wheezing and she demonstrated increased work of breathing. She denied any other pain. She is on 3 L of oxygen via nasal cannula, and her oxygen saturation rate has been in the high 90s. Patient was found to have enlarged submandibular lymph nodes suspicious for abscess, a CT scan of the area was suggestive of inflammation/infection and not abscess. Patient lives alone in her own home with her 6 cats. She ambulates without assistive devices and handles her ADLs. 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 Current Medications Current Medications Current Medications: Current Medications Generic Name Dose Route Start Last Admin Trade Name Freq PRN Reason Stop Dose Admin Acetaminophen 650 mg 05/09/24 01:45 05/09/24 15:59 Acetaminophen 325 Mg Tablet PO 650 mg Q4HR PRN Administration Pain 1 to 4, or Fever Hydrocodone Bitart/Acetaminophen 1 tab 05/09/24 18:44 05/10/24 06:54 Hydrocod/Acetam 5/325 Mg Tablet PO 1 tab Q4HR PRN Administration Moderate Pain (Level 4-6) Albuterol/Ipratropium 3 ml 05/09/24 11:00 05/10/24 10:37 Ipratropium/Albuterol 3 Ml Neb INH 3 ml RTQID MARIYA Administration Albuterol/Ipratropium 3 ml 05/09/24 15:27 05/10/24 01:10 Ipratropium/Albuterol 3 Ml Neb INH 3 ml Q4HR PRN Administration Wheezing Aspirin 81 mg 05/09/24 09:00 05/10/24 09:17 Aspirin Ec 81 Mg Tablet PO 81 mg DAILY MARIYA Administration Bupropion HCl 150 mg 05/09/24 09:00 05/10/24 09:17 Bupropion Xl 150 Mg Tablet PO 150 mg DAILY MARIYA Administration Dexamethasone Sodium Phosphate 10 mg 05/09/24 18:40 05/10/24 06:55 Dexamethasone 10 Mg/Ml Vial IVP 05/10/24 14:01 10 mg Q8HR MARIYA Administration Diazepam 2.5 mg 05/10/24 02:48 05/10/24 03:02 Diazepam 5 Mg Tablet PO 2.5 mg BID PRN Administration Anxiety Enoxaparin Sodium 40 mg 05/09/24 09:00 05/10/24 09:17 Enoxaparin 40 Mg/0.4 Ml Syringe SUBQ 40 mg DAILY MARIYA Administration Fluticasone Propionate 1 sprays 05/09/24 09:00 05/10/24 09:17 Fluticasone Nasal [place] MICHELLE 1 spr DAILY MARIYA Administration Hydrochlorothiazide 25 mg 05/09/24 09:00 05/10/24 09:17 Hydrochlorothiazide 25 Mg Tablet PO 25 mg DAILY MARIYA Administration Lactobacillus Rhamnosus 1 cap 05/09/24 06:00 05/10/24 06:55 Lactobacillus Rhamnosus Gg Capsule PO 1 cap TID MARIYA Administration Levothyroxine Sodium 125 mcg 05/09/24 07:00 05/10/24 06:55 Levothyroxine 125 Mcg Tablet PO 125 mcg QDAC MARIYA Administration Loratadine 10 mg 05/09/24 02:29 05/09/24 16:00 Loratadine 10 Mg Tablet PO 10 mg QOD PRN Administration Allergy Symptoms Metoprolol Succinate 25 mg 05/09/24 11:00 05/10/24 09:17 Metoprolol Succinate 25 Mg Tablet PO 25 mg DAILY MARIYA Administration Montelukast Sodium 10 mg 05/09/24 09:00 05/10/24 09:16 Montelukast 10 Mg Tablet PO 10 mg DAILY MARIYA Administration Pantoprazole Sodium 40 mg 05/11/24 07:00 Pantoprazole 40 Mg Tablet PO QDAC MARIYA Polyethylene Glycol 17 gm 05/10/24 10:00 05/10/24 10:50 Polyethylene Glycol 3350 17 Gm Packet PO 17 gm DAILY MARIYA Administration Sodium Chloride 10 ml 05/09/24 01:45 05/10/24 06:56 Sodium Chloride Flush 0.9% 10 Ml Syringe IVP 10 ml PRN PRN Administration NEEDED PER PROVIDER ORDERS Sodium Chloride 10 ml 05/09/24 01:45 05/10/24 09:18 Sodium Chloride Flush 0.9% 10 Ml Syringe IVP 10 ml 0100,0900,1700 MARIYA Administration Objective Vital Signs/Intake & Output Reviewed Vital Signs: Yes Vital Signs: Vital Signs x48h Temp Pulse Pulse Resp BP Pulse Ox O2 Flow Rate 05/10/24 09:07 36.6 C 72 20 146/82 H 97 3 05/10/24 07:40 3 05/10/24 07:40 82 22 Intake & Output: Intake & Output 05/07/24 05/08/24 05/09/24 05/10/24 23:59 23:59 23:59 23:59 Intake Total 1999 / 1999 7100 / 7100 2740 / 2740 Output Total 600 / 600 Balance 1400 / 1400 7100 / 7100 2740 / 2740 Weight (kg) 89.6 kg 88 kg Objective General Appearance: positive Alert and Mild distress; negative Anxious or Lethargic Eyes Bilateral: positive Normal inspection, PERRL and EOMI ENT: positive ENT inspection nml, Pharynx nml and No signs of dehydration Neck: positive Nml inspection, Thyroid nml, No JVD and Lymphadenopathy (L) (Submandibular lymph nodes enlarged) Respiratory: positive Chest non-tender, Wheezes and Other (Bilateral crackles) Cardiovascular: positive No murmur, Irregularly irregular (A fib) and Tachycardia (Occasional episodes of tachycardia) Abdomen: positive Non-tender; negative Guarding, Rebound, Hepatomegaly or Splenomegaly Back: positive Nml inspection; negative CVA tenderness (R) or CVA tenderness (L) Skin: positive Color nml Extremities: positive Non-tender and No pedal edema Neurologic/Psychiatric: positive Sensation nml, Mood/affect nml and Weakness Lab Results 05/10/24 05:47 05/10/24 05:47 Other Labs: Lab Results x24hrs 05/10/24 Range/Units 05:47 WBC 6.2 (4.8-10.8) x10^3/uL RBC 3.89 L (4.20-5.40) 10^6/uL Hgb 12.2 (12.0-16.0) g/dL Hct 34.3 L (37.0-47.0) % MCV 88.2 (81.0-99.0) fL MCH 31.4 H (27.0-31.0) pg MCHC 35.6 (32.0-36.0) g/dL RDW 13.2 (12.0-15.0) % Plt Count 192 (130-450) 10^3/uL MPV 9.8 (7.9-10.8) fL Sodium 129 L (135-145) mmol/L Potassium 4.2 (3.5-4.5) mmol/L Chloride 97 L (101-111) mmol/L Carbon Dioxide 24 (21-32) mmol/L Anion Gap 8.0 (6-13) BUN 10 (6-20) mg/dL Creatinine 0.5 L (0.6-1.3) mg/dL Estimated GFR (MDRD) 122 (>89) Glucose 219 H (74-104) mg/dL Calcium 8.3 L (8.5-10.3) mg/dL Magnesium 1.7 (1.7-2.3) mg/dL Diagnostic Imaging Diagnostic Imaging Results: positive Final report reviewed Assessment/Plan Problem List (1) Acute hypoxic respiratory failure: Impression: Likely due to new influenza A infection. Patient does have a history of asthma and was diagnosed with pneumonia on 05/03/24. She was prescribed a course of amoxicillin and azithromycin, which she hasn't completed. She returned to the walk-in clinic with worsening shortness of breath and increased work of breathing. Her chest X-ray done in the ED was clear, the pneumonia had resolved. Her venous blood gas did not show any carbon dioxide retention and her lactic acid level was normal. Her lungs continue to exhibit bilateral expiratory wheezing, and she demonstrates increased work of breathing. Her oxygen saturation rates have been good on 3L oxygen via nasal cannula as long as she is at rest. Patient has been receiving DuoNeb treatments four times daily and monteleukast 10mg PO daily Her asthma medications while hospitalized include budesonide 0.5mg twice daily and formoterol 20 mcg twice daily She has been anxious about feeling short of breath, and has been receiving diazepam as needed to help with her anxiety. We will continue breathing treatments and nasal oxygen, and monitor her oxygen saturation. (2) Atrial fibrillation with rapid ventricular response: Impression: Likely exacerbated by acute respiratory distress Patient has a history of atrial fibrillation, and has a Watchman device implanted. She is not on any anticoagulation meds. Patient is receiving metoprolol succinate 25 mg PO daily for rate control (3) Influenza A: Impression: Patient is outside the window for oseltamivir. She is receiving IV fluids and other supportive care as needed (4) Acute viral sialadenitis: Impression: Likely secondary to acute influenza A infection. Patient had a CT scan which was indicative of inflammation or infection, and not abscess. She received high dose Decadron 10mg for 4 doses to assist with this, with improvement today. OMFS consulted - spoke with them today regarding patient's care, continue supportive care. Will likely resolve on its own, no surgery needed at this time. We will continue to monitor. (5) Depression, major, recurrent, in partial remission: Impression: Continue Wellbutrin. (6) Hypothyroid: Impression: Continue Levothyroxine. Qualifiers: Hypothyroidism type: unspecified Qualified Code(s): E03.9 - Hypothyroidism, unspecified (7) Reactive airway disease: Impression: Continue Duonebs. Qualifiers: Asthma persistence: unspecified Asthma severity: mild Qualified Code(s): J45.909 - Unspecified asthma, uncomplicated (8) ADHD (attention deficit hyperactivity disorder): Impression: Holding home stimulant until patient is able to bring her home medication in. Qualifiers: Attention deficit-hyperactivity disorder type: unspecified Qualified Code(s): F90.9 - Attention-deficit hyperactivity disorder, unspecified type
[2024-05-10] MEDS ORDERED: [UNRECOGNIZED DRUG - OTHER] INH SCH (21:00)
[2024-05-10] MEDS ORDERED: FLUTICASONE PROPION SALMETEROL INH SCH (21:00)
[2024-05-10] MEDS: FORMOTEROL FUMARATE NEB 20 MCG/2 ML INH SCH (21:21)
[2024-05-10] MEDS: BUDESONIDE 0.5 MG/2 ML NEB INH SCH (21:21)
[2024-05-11 03:53] VITALS: TEMP 97.9
[2024-05-11 06:03] LABS: HCT - HEMATOCRIT 33.6 % (37.0-47.0); HGB - HEMOGLOBIN 11.5 g/dL (12.0-16.0); MEAN CORPUSCULAR HEMOGLOBIN 30.1 pg (27.0-31.0); MEAN CORPUSCULAR HGB CONC 34.2 g/dL (32.0-36.0); MEAN PLATELET VOLUME 9.7 fL (7.9-10.8); RED BLOOD COUNT 3.82 10^6/uL (4.20-5.40); RED CELL DISTRIBUTION WIDTH 13.2 % (12.0-15.0); WHITE BLOOD COUNT 10.8 x10^3/uL (4.8-10.8)
[2024-05-11 06:22] LABS: CALCIUM 8.7 mg/dL (8.5-10.3); CREATININE 0.5 mg/dL (0.6-1.3); MAGNESIUM 1.6 mg/dL (1.7-2.3)
[2024-05-11] MEDS: PANTOPRAZOLE 40 MG TABLET PO SCH (06:40)
[2024-05-11] MEDS ORDERED: MAGNESIUM SULFATE 1 GM/2 ML VIAL IVP STA (07:20)
[2024-05-11] MEDS: predniSONE 20 MG TABLET PO SCH (08:18)
[2024-05-11] MEDS: CHOLECALCIFEROL 25 MCG TABLET PO SCH (08:18)
[2024-05-11] MEDS: MAGNESIUM SULFATE 2 GRAM 2 GM/50 ML BAG IV ONE (08:32)
[2024-05-11 08:35] VITALS: BP 115/83; O2SAT 97
--- NOTE | 2024-05-11 11:32 | Discharge Summary ---
"Discharge Summary Admit Date: 05/08/24 Discharge Date: 05/11/24 Discharging Provider: Dr Michelle Monge Primary Care Provider: Ting Salgado Code Status: Do Not Attempt Resuscitation Discharge Facility Name: Home DIAGNOSES Admission Diagnoses: Acute respiratory failure with hypoxia Atrial fibrillation with RVR Influenza A Acute viral sialadenitis Discharge Diagnoses with Status of Each Condition: Acute respiratory failure with hypoxia: Resolved patient's lungs have cleared considerably and she is maintaining oxygen saturation rates in the high 90's on room air, even with activity Atrial fibrillation with RVR: Chronic condition. Patient has a Watchman device in place. Advised to take bisoprolol daily until re-evaluation with primary care doctor and wire hanger Influenza A: Resolved Acute viral sialadenitis: Resolving. Per consult with OMFS, condition will clear on its own with no surgery needed HPI History of Present Illness: Patient is a 69 year old female with a history of atrial fibrillation with RVR, asthma, and hypertension. She presented to the ED last night with difficulty breathing and shortness of breath for the past 5 days. She tested positive for influenza A while in the ED. Patient was seen at a walk-in clinic on 05/03/24 for community acquired pneumonia and prescribed amoxicillin and azithromycin, which she stated she did not finish. She also was prescribed a course of dexamethasone 6 mg once daily for 3 days. On 05/05/24, she felt like her breathing was getting worse so she returned to the walk-in clinic where she was found to be in A-fib with RVR and was transferred to the ED. Upon admission to the hospital, she was found to have enlarged submandibular salivary glands. CONSULTS | PROCEDURES Consultations: OMFS, RT Procedures: CT soft tissue neck, chest x-ray HOSPITAL COURSE Hospital Course: Patient was admitted from the emergency department with worsening shortness of breath following a pneumonia diganosis at a walk-in clinic three days prior. While in the ED, patient was found to have atrial fibrillation with RVR, and she tested positive for influenza A. During her admission physical, she was found to have enlarged submandibular salivary glands. During her stay, the patient received DuoNeb treatments four times daily and monteleukast 10mg PO daily to resolve her shortness of breath. Her asthma medications while hospitalized include budesonide 0.5mg twice daily and formoterol 20 mcg twice daily She did have some anxiety about feeling short of breath, and received diazepam as needed to help. Patient has a history of atrial fibrillation that was likely exacerbated by acute respiratory distress. She has a Watchman device implanted, and is not on any anticoagulation meds. Patient received metoprolol succinate 25 mg PO daily for rate control. She will follow up with her regular wire hanger. She will be continued on her home bisprolol on dischare. Patient was found to have acute viral sialadenitis that was likely secondary to acute influenza A infection. She had a CT scan which was indicative of inflammation or infection, and not abscess. She received high dose Decadron 10mg for 4 doses to assist with this, and OMFS was consulted. They advised to continue supportive care. Will likely resolve on its own, no surgery needed at this time. She will complete a five day oral steroid course on discharge. Patient was still exhibiting mild bilateral expiratory wheezing, but it was markedly improved, and she had good air movement. She was able to ambulate comfortably on room air without any feelings of dizziness or lightheadedness. She stated she felt comfortable going home. ALLERGIES Allergies Allergy/AdvReac Type Severity Reaction Status Date / Time alprazolam (From Xanax) Allergy Severe Unknown Verified 05/08/24 20:52 influenza virus vaccine, Allergy Severe Unknown Verified 05/08/24 20:52 specific bupivacaine HCl * (From Allergy Unknown Verified 05/08/24 20:52 Marcaine-Epinephrine) ibuprofen Allergy Rash Verified 05/08/24 20:52 meperidine (From Demerol) Allergy Hives Verified 05/08/24 21:17 methylparaben Allergy Hives Verified 05/08/24 21:17 morphine Allergy Itching Verified 05/08/24 21:17 naproxen sodium * (From Allergy Itching Verified 05/08/24 21:17 Aleve) propoxyphene (From Darvon) Allergy Hives Verified 05/08/24 21:17 Sulfa (Sulfonamide Allergy Edema Verified 05/08/24 21:17 Antibiotics) Opioids - Morphine Analogues AdvReac Severe Unknown Verified 05/08/24 21:17 phenytoin sodium * (From AdvReac Hives Verified 05/08/24 21:17 Dilantin) phenytoin sodium extended * AdvReac Hives Verified 05/08/24 21:17 (From Dilantin) MEDICATIONS Ambulatory Orders Medication Instructions Recorded Confirmed Lactobacillus acidophilus 100 1 ea PO TID 04/26/13 05/09/24 million cell capsule alpha lipoic acid 50 mg capsule 50 mg PO DAILY 04/26/13 05/09/24 aspirin 81 mg tablet,delayed 81 mg PO DAILY 04/26/13 05/09/24 release (Aspir-) chromium picolinate 400 mcg tablet 400 mcg PO DAILY 04/26/13 05/09/24 coenzyme Q10 100 mg capsule 100 mg PO DAILY 04/26/13 05/09/24 fexofenadine 60 mg tablet 60 mg PO DAILY PRN Allergy Symptoms 04/26/13 05/09/24 omega 9-mik-xgz-fish oil 980 1 ea PO DAILY 04/26/13 05/09/24 mg-1,400mg capsule,delayed release dextroamphetamine sulfate 10 mg See Rx Instructions PO DAILY #90 01/27/24 05/09/24 tablet tabs bupropion HCl 150 mg 24 hr tablet, 150 mg PO QAM #30 tabs 03/02/24 05/09/24 extended release (Wellbutrin XL) dextroamphetamine-amphetamine 20 20 mg PO BID #60 tabs 03/02/24 05/09/24 mg tablet azelastine 137 mcg (0.1 %) nasal 1 spray intranasal ONCE PRN 04/06/24 05/09/24 spray allergy symptoms blood sugar diagnostic (OneTouch 04/06/24 05/05/24 Ultra Test strips) cholecalciferol (vitamin D3) 50 50 mcg PO QDAY 04/06/24 05/09/24 mcg (2,000 unit) capsule diclofenac sodium 50 mg 50 mg PO ONCE PRN pain 04/06/24 05/09/24 tablet,delayed release estradiol 0.01% (0.1 mg/gram) 1 g vaginal QWEEK 04/06/24 05/09/24 vaginal cream fluticasone propionate 50 1 spray intranasal DAILY 04/06/24 05/09/24 mcg/actuation nasal spray,suspension montelukast 10 mg tablet 10 mg PO HS 04/06/24 05/09/24 multivitamin (Daily Multi-Vitamin 1 tab PO QDAY 04/06/24 05/09/24 tablet) mv-mn-folic 200 mcg-vit K 15 1 cap PO DAILY 04/06/24 05/09/24 mcg-lutein 5 mg-zeaxanthin 1 mg capsule (PreserVision AREDS 2 Plus Multivit) omeprazole 20 mg capsule,delayed 20 mg PO DAILY 04/06/24 05/09/24 release polyethylene glycol 3350 17 17 g PO HS PRN constipation 04/06/24 05/09/24 gram/dose oral powder (Miralax) potassium chloride 10 mEq 10 meq PO DAILY 04/06/24 05/09/24 tablet,extended release hydrochlorothiazide 25 mg tablet 25 mg PO QAM #90 tabs 04/23/24 05/09/24 albuterol sulfate 90 mcg/actuation 2 puff inhalation QID PRN 05/03/24 05/09/24 aerosol inhaler (Ventolin HFA) shortness of breath or wheezing #6.7 grams diazepam 2 mg tablet 2 mg PO DAILY PRN anxiety 05/09/24 05/09/24 fluticasone propionate 230 2 inh inhalation BID 05/09/24 05/09/24 mcg-salmeterol 21 mcg/actuation HFA inhaler levothyroxine 125 mcg tablet 125 mcg PO QDAY #90 tabs 05/10/24 (Levoxyl) prednisone 20 mg tablet 40 mg (2 x 20 mg) PO DAILYWM 2 05/11/24 days #4 tabs PHYSICAL EXAM AT DISCHARGE General Appearance: positive No acute distress and Alert; negative Anxious Eyes Bilateral: positive Normal inspection, PERRL and EOMI ENT: positive ENT inspection nml, Pharynx nml and No signs of dehydration Neck: positive Nml inspection Respiratory: positive Chest non-tender and Wheezes (mild expiratory wheezes noted, good air movement bilaterally ) Cardiovascular: positive Irregularly irregular; negative Tachycardia, Bradycardia, Systolic murmur or Diastolic murmur Peripheral Pulses: positive 2+ Abdomen: positive Non-tender; negative Guarding, Hepatomegaly or Splenomegaly Skin: positive Color nml, No rash and Warm Extremities: positive Non-tender, Full ROM and Nml appearance Neurologic/Psychiatric: positive Oriented x3 and Mood/affect nml LABS 05/11/24 05:45 05/11/24 05:45 DIAGNOSTIC IMAGING Diagnostic Imaging Results: Final report reviewed FOLLOW UP Follow Up: With PCP TIME SPENT Time Spent in Discharge (Minutes): 45 Discharge Plan Discharge Patient Disposition: Home, Self Care Condition: Stable Prescriptions: New prednisone 20 mg Tablet 40 mg PO DAILYWM 2 Days Qty: 4 0RF Continued levothyroxine [Levoxyl] 125 mcg tablet 125 mcg PO QDAY Qty: 90 0RF coenzyme Q10 100 MG capsule 100 mg PO DAILY omega 9-ydw-tyb-fish oil 1 EACH capsule,delayed release(DR/EC) 1 ea PO DAILY Lactobacillus acidophilus 1 EACH capsule 1 ea PO TID alpha lipoic acid 50 MG capsule 50 mg PO DAILY aspirin [Aspir-81] 81 MG tablet,delayed release (DR/EC) 81 mg PO DAILY chromium picolinate 400 MCG tablet 400 mcg PO DAILY fexofenadine 60 MG tablet 60 mg PO DAILY PRN (Reason: Allergy Symptoms) fluticasone propion-salmeterol 230-21 mcg/actuation HFA aerosol inhaler 2 inh inhalation BID diazepam 2 mg tablet 2 mg PO DAILY PRN (Reason: anxiety) dextroamphetamine sulfate 10 mg tablet See Rx Instructions PO DAILY Qty: 90 0RF Rx Instructions: Take one tablet in the AM and 2 tablets in the afternoon ipratropium-albuterol 0.5 mg-3 mg(2.5 mg base)/3 mL solution for nebulization 3 ml inhalation ONCE Qty: 1 0RF albuterol sulfate [Ventolin HFA] 90 mcg/actuation HFA aerosol inhaler 2 puff inhalation QID PRN (Reason: shortness of breath or wheezing) Qty: 6.7 2RF azelastine 137 mcg (0.1 %) spray,non-aerosol 1 spray intranasal ONCE PRN (Reason: allergy symptoms) Rx Instructions: Inhale 1-2 spray into both nostrils twice a day diclofenac sodium 50 mg tablet,delayed release (DR/EC) 50 mg PO ONCE PRN (Reason: pain) Rx Instructions: Take 1 tablet by mouth once a day as needed polyethylene glycol 3350 [Miralax] 17 gram/dose powder 17 g PO HS PRN (Reason: constipation) Rx Instructions: Uses every night estradiol 0.01 % (0.1 mg/gram) cream 1 g vaginal QWEEK Rx Instructions: Insert 1 gram into vagina once a week (DME) OneTouch Ultra Test Strip See Rx Instructions .Route Rx Instructions: Use one strip via meter twice a day to check blood sugar omeprazole 20 mg capsule,delayed release(DR/EC) 20 mg PO DAILY Rx Instructions: Take 1 capsule by mouth once a day potassium chloride 10 mEq tablet extended release 10 meq PO DAILY Rx Instructions: Take 1 tablet by mouth once a day montelukast 10 mg tablet 10 mg PO HS Rx Instructions: Take 1 tablet by mouth once a day fluticasone propionate 50 mcg/actuation spray,suspension 1 spray intranasal DAILY Rx Instructions: administer into each nostril PreserVision AREDS 2 Plus MV 200 mcg-15 mcg- 5 mg-1 mg capsule 1 cap PO DAILY multivitamin [Daily Multi-Vitamin] Tablet 1 tab PO QDAY cholecalciferol (vitamin D3) 50 mcg (2,000 unit) capsule 50 mcg PO QDAY hydrochlorothiazide 25 mg tablet 25 mg PO QAM Qty: 90 0RF Rx Instructions: Take 1 tablet by mouth every morning dextroamphetamine-amphetamine 20 mg tablet 20 mg PO BID Qty: 60 0RF bupropion HCl [Wellbutrin XL] 150 mg tablet extended release 24 hr 150 mg PO QAM Qty: 30 0RF albuterol sulfate 2.5 mg /3 mL (0.083 %) solution for nebulization 2.5 mg continuous nebulization ONCE Qty: 1 0RF Discontinued amoxicillin 875 mg tablet 875 mg PO BID 7 Days Qty: 14 0RF Activity Restrictions: Activity as Tolerated Diet: Regular Health Concerns: You came in because you were feeling short of breath. You were found to have influenza A. You had a lot of wheezing when you first got here, and likely had an asthma exacerbation. You then had swelling of your salivary glands, likely because of the infection above. We started you on steroids and breathing treatments. We were able to successfully get you off oxygen and you're breathing much better now. I want you to continue two more days of steroids at home. Continue to use your Advair inhaler twice a day. Continue to use your albuterol inhaler as needed. Please take your bisoprolol daily. Please follow up with Ting Salgado, your primary care provider, in the next few weeks. We are glad you're feeling better, thank you for allowing us to take care of you. Print Language: [place] Patient Instructions: Asthma Avoid Triggers Ch Stand Alone Forms: PCP List Follow-up Care: Ting Salgado MD [Primary Care Provider] -"
[2024-05-11] MEDS: methylPREDNISolone SUCCINATE 40 MG/ML VIAL IVP STA (11:53)
[2024-05-11] MEDS: LEVALBUTEROL 1.25 MG/3 ML NEB INH PRN (13:41)
[2024-05-12] MEDS: iohexoL-300 100 ML VIAL IVP ONE (06:43)
== END 2024-05-11 14:38 | disposition home or self-care (01) | DRG 189 ==
LOC: ED 20:41 → MS2 05-09 00:42
PROVIDERS: ADMIT Internal Medicine; ATTEND Internal Medicine
DX: R41.82 Altered mental status, unspecified; K21.9 Gastro-esophageal reflux disease without esophagitis; J11.1 Influenza due to unidentified influenza virus with other respiratory manifestations; J45.909 Unspecified asthma, uncomplicated; F41.9 Anxiety disorder, unspecified; Z66 Do not resuscitate; F32.A Depression, unspecified; R09.02 Hypoxemia; I48.91 Unspecified atrial fibrillation; I10 Essential (primary) hypertension; E03.9 Hypothyroidism, unspecified; E06.3 Autoimmune thyroiditis; Z79.82 Long term (current) use of aspirin; R41.0 Disorientation, unspecified; J96.01 Acute respiratory failure with hypoxia; J10.1 Influenza due to other identified influenza virus with other respiratory manifestations; R59.0 Localized enlarged lymph nodes; Z95.818 Presence of other cardiac implants and grafts; F90.9 Attention-deficit hyperactivity disorder, unspecified type; K11.21 Acute sialoadenitis; Z87.01 Personal history of pneumonia (recurrent); R00.0 Tachycardia, unspecified

== ENCOUNTER 2024-05-12 18:49 | Inpatient (IN) ==
--- NOTE | 2024-05-12 19:11 | ED Physician Documentation ---
History of Present Illness Stated complaint Stated Complaint: SOA Chief complaint Chief Complaint: Resp History obtained from History obtained from: Patient and EMS Additonal information Additional information: Patient is a 69-year-old female brought to the emergency department by EMS. She states that she has been short of breath for several days but felt worse today, also felt her heart racing. She states she feels confused today and thinks that she took a Vicodin but is not sure of this. She states that the doctor prescribed her hydrocodone and the pharmacy would not give it to her friend, but then states that she took the hydrocodone that was prescribed to her. She states that she has not been taking anything for her heart or her heart rate. She appears to have difficulty answering questions and keeping a train of thoughts. She states that she had a fever today, asked what her temperature was she states that she does not know because she could not see it. I asked her who took the temperature and she said she did. Has recently been treated for pneumonia. Fernie Coma Scale Assess Eye opening: Spontaneous Verbal response: Confused Motor response: Obeys Commands Total score: 14 Review of Systems Status of ROS: unobtainable due to mental status Meds/Allgy Home Medications Ambulatory Orders Medication Instructions Recorded Confirmed Lactobacillus acidophilus 100 1 ea PO TID 04/26/13 05/09/24 million cell capsule alpha lipoic acid 50 mg capsule 50 mg PO DAILY 04/26/13 05/09/24 aspirin 81 mg tablet,delayed 81 mg PO DAILY 04/26/13 05/09/24 release (Aspir-) chromium picolinate 400 mcg tablet 400 mcg PO DAILY 04/26/13 05/09/24 coenzyme Q10 100 mg capsule 100 mg PO DAILY 04/26/13 05/09/24 fexofenadine 60 mg tablet 60 mg PO DAILY PRN Allergy Symptoms 04/26/13 05/09/24 omega 4-kyb-eeg-fish oil 980 1 ea PO DAILY 04/26/13 05/09/24 mg-1,400mg capsule,delayed release dextroamphetamine sulfate 10 mg See Rx Instructions PO DAILY #90 01/27/24 05/09/24 tablet tabs bupropion HCl 150 mg 24 hr tablet, 150 mg PO QAM #30 tabs 03/02/24 05/09/24 extended release (Wellbutrin XL) dextroamphetamine-amphetamine 20 20 mg PO BID #60 tabs 03/02/24 05/09/24 mg tablet azelastine 137 mcg (0.1 %) nasal 1 spray intranasal ONCE PRN 04/06/24 05/09/24 spray allergy symptoms blood sugar diagnostic (OneTouch 04/06/24 05/05/24 Ultra Test strips) cholecalciferol (vitamin D3) 50 50 mcg PO QDAY 04/06/24 05/09/24 mcg (2,000 unit) capsule diclofenac sodium 50 mg 50 mg PO ONCE PRN pain 04/06/24 05/09/24 tablet,delayed release estradiol 0.01% (0.1 mg/gram) 1 g vaginal QWEEK 04/06/24 05/09/24 vaginal cream fluticasone propionate 50 1 spray intranasal DAILY 04/06/24 05/09/24 mcg/actuation nasal spray,suspension montelukast 10 mg tablet 10 mg PO HS 04/06/24 05/09/24 multivitamin (Daily Multi-Vitamin 1 tab PO QDAY 04/06/24 05/09/24 tablet) mv-mn-folic 200 mcg-vit K 15 1 cap PO DAILY 04/06/24 05/09/24 mcg-lutein 5 mg-zeaxanthin 1 mg capsule (PreserVision AREDS 2 Plus Multivit) omeprazole 20 mg capsule,delayed 20 mg PO DAILY 04/06/24 05/09/24 release polyethylene glycol 3350 17 17 g PO HS PRN constipation 04/06/24 05/09/24 gram/dose oral powder (Miralax) potassium chloride 10 mEq 10 meq PO DAILY 04/06/24 05/09/24 tablet,extended release hydrochlorothiazide 25 mg tablet 25 mg PO QAM #90 tabs 04/23/24 05/09/24 albuterol sulfate 90 mcg/actuation 2 puff inhalation QID PRN 05/03/24 05/09/24 aerosol inhaler (Ventolin HFA) shortness of breath or wheezing #6.7 grams diazepam 2 mg tablet 2 mg PO DAILY PRN anxiety 05/09/24 05/09/24 fluticasone propionate 230 2 inh inhalation BID 05/09/24 05/09/24 mcg-salmeterol 21 mcg/actuation HFA inhaler levothyroxine 125 mcg tablet 125 mcg PO QDAY #90 tabs 05/10/24 (Levoxyl) amoxicillin 875 mg-potassium 1 tab PO BID #14 tabs 05/11/24 clavulanate 125 mg tablet diltiazem HCl 90 mg 90 mg PO BID #60 caps 05/11/24 capsule,extended release 12 hr hydrocodone 5 mg-acetaminophen 325 1 tab PO Q4H PRN pain #14 tabs 05/11/24 mg tablet prednisone 20 mg tablet 40 mg (2 x 20 mg) PO DAILYWM 2 05/11/24 days #4 tabs Allergies Allergies Allergy/AdvReac Type Severity Reaction Status Date / Time alprazolam (From Xanax) Allergy Severe Unknown Verified 05/12/24 18:54 influenza virus vaccine, Allergy Severe Unknown Verified 05/12/24 18:54 specific bupivacaine HCl * (From Allergy Unknown Verified 05/12/24 18:54 Marcaine-Epinephrine) ibuprofen Allergy Rash Verified 05/12/24 18:54 meperidine (From Demerol) Allergy Hives Verified 05/12/24 18:54 methylparaben Allergy Hives Verified 05/12/24 18:54 morphine Allergy Itching Verified 05/12/24 18:54 naproxen sodium * (From Allergy Itching Verified 05/12/24 18:54 Aleve) propoxyphene (From Darvon) Allergy Hives Verified 05/12/24 18:54 Sulfa (Sulfonamide Allergy Edema Verified 05/11/24 21:39 Antibiotics) Opioids - Morphine Analogues AdvReac Severe Unknown Verified 05/11/24 21:39 phenytoin sodium * (From AdvReac Hives Verified 05/11/24 21:39 Dilantin) phenytoin sodium extended * AdvReac Hives Verified 05/11/24 21:39 (From Dilantin) PFSH Active Problems All Active Problems (Updated 05/12/24 @ 20:16 by Buck Weinstein MD) Atrial fibrillation with RVR (Acute) Altered mental status (Acute) Acute hyponatremia (Acute) ADHD (attention deficit hyperactivity disorder) (Acute) Hypothyroid (Acute) Influenza A (Acute) Acute viral sialadenitis (Acute) Acute hypoxic respiratory failure (Acute) Flu (Acute) Encounter for medication adjustment (Acute) Chronic asthma (Acute) Hypotension (Acute) Tachycardia (Acute) CAP (community acquired pneumonia) (Acute) Dyspnea (Acute) Cough (Acute) A-fib (Acute) Dysfunction of left eustachian tube (Acute) Calf cramp (Acute) Hyperglycemia (Acute 04/10/10) Hormone replacement therapy (Acute 04/02/11) Herpes zoster (Acute 11/17/12) Essential hypertension, benign (Acute 03/22/09) Britni thyroiditis (Acute) Thrush (Acute 06/27/13) Pilonidal cyst (Acute 01/08/14) Obesity (Acute 06/27/13) Vaginitis and vulvovaginitis (Acute) Varicose veins of lower extremity (Acute) Osteoarthritis of left knee (Acute) Hyperlipidemia (Acute 03/09/13) Tremor of hands and face (Acute 09/20/21) Numbness of foot (Acute 10/01/21) Menopausal disorder (Acute 06/11/22) Inflamed seborrheic keratosis (Acute 05/27/22) Glucose intolerance (Acute 03/26/22) Gastritis (Acute 08/19/22) Colitis (Acute 08/19/22) Bunion, left (Acute 03/26/22) Chronic ethmoidal sinusitis (Acute) Reactive airway disease (Acute) Major depressive disorder, single episode, moderate (Acute) Nondependent alcohol abuse, continuous drinking behavior (Acute) Elevated hemoglobin A1c (Acute) Depression, major, recurrent, in partial remission (Acute) Grief reaction (Acute) Generalized anxiety disorder (Acute) Back pain, acute (Acute) Acute chest pain (Acute) GERD (gastroesophageal reflux disease) (Acute) Asthma, extrinsic (Acute) Subconjunctival hemorrhage of left eye (Acute) Alcohol use disorder, moderate, dependence (Acute) Generalized anxiety disorder with panic attacks (Acute) ADHD (attention deficit hyperactivity disorder), combined type (Acute) Diverticulitis (Acute) Leg pain, left (Acute) Abscess (Acute) Post-operative pain (Acute) Palpitations (Acute) Abrasion of sclera of left eye (Acute) Abdominal pain (Acute) Medical History Medical History Constipation (08/31/14) Bronchitis, acute (12/12/09) Breast cancer (11/17/12) Ankle pain, right (09/20/21) Surgical History Surgical History History of cholecystectomy (1975) History of appendectomy (1975) Family History Family History Mother Breast cancer Father Heart attack CAD (coronary artery disease) CVA (cerebral vascular accident) Other Depressed Diabetes High blood pressure Social History Social History (Updated 05/11/24 @ 22:14 by Lashae Santiago RN) Smoking Status: Never smoker Second hand tobacco smoke exposure: No Do you dip or chew tobacco?: No Do you vape?: No Patient requests smoking cessation consult: No Initiate information on smoking cessation: No Living arrangement: At home Marital Status: Living Condition: Alone and With spouse/s.o. Relationship: Physical Activity: Walking Level: Independent Do you feel safe in your home environment?: Yes Suffered physical, verbal, emotional, or financial abuse?: No History of Abuse: No ETOH Use: None and Wine Frequency: Weekly ETOH Use Details: states "a couple of glasses a wine once a week or every other week" Substance Use: denies use Retired: Yes Service: No Are you following a diet prescribed by a doctor: No Are you following a special diet: No POLST Patient has POLST: No POLST Status: DNR Exam Constitutional normal general appearance and no apparent distress HENMT normocephalic, head/scalp atraumatic and oropharynx normal Eyes PERRL and EOMs intact bilaterally Neck/C-Spine visual inspection normal and trachea midline Respiratory breath sounds equal bilaterally and normal respiratory effort Cardiovascular Irregularly irregular, tachycardic Gastrointestinal abdomen soft to palpation, nontender to palpation and nondistended Genitourinary no CVA tenderness Back/Pelvis no thoracic spine tenderness and no lumbar spine tenderness Extremities No edema Neurology GCS 14, confused Psychiatry orientation abnormal (disoriented to time) Skin skin color normal Results Vitals Vitals: Vital Signs - 24 hr 05/11/24 23:13 05/11/24 23:35 05/12/24 18:54 Temperature 36.8 C Temperature Source Tympanic Pulse Rate 89 Respiratory Rate 20 Blood Pressure 115/72 O2 Saturation 95 O2 Source Room air Room air Pain Intensity 8 2 05/12/24 19:29 05/12/24 19:49 05/12/24 20:00 Temperature 98.4 C H Temperature Source Oral Pulse Rate 116 H 120 H Respiratory Rate 16 20 Blood Pressure 109/67 91/71 O2 Saturation 97 93 O2 Source Room air Room air Pain Intensity 05/12/24 20:11 05/12/24 20:18 05/12/24 20:23 Temperature Temperature Source Pulse Rate 133 H 141 H 126 H Respiratory Rate 16 20 20 Blood Pressure 104/75 87/66 L 97/73 O2 Saturation 95 94 95 O2 Source Room air Room air Room air Pain Intensity 05/12/24 20:33 05/12/24 20:38 05/12/24 20:43 Temperature Temperature Source Pulse Rate 102 H 124 H 129 H Respiratory Rate 20 16 16 Blood Pressure 88/72 L 95/68 85/69 L O2 Saturation 93 95 94 O2 Source Room air Room air Room air Pain Intensity 05/12/24 20:55 05/12/24 20:58 Temperature Temperature Source Pulse Rate 119 H 121 H Respiratory Rate 16 16 Blood Pressure 101/72 108/77 O2 Saturation 95 95 O2 Source Room air Room air Pain Intensity Oxygen O2 Source Room air EKG (time done) 1855: EKG releavant findings:: EKG personally interpreted by author of this note. Relevant findings are: Rate: Other (Atrial fibrillation, rate 127 bpm. RVR. Normal axis. Nonspecific repull abnormality diffuse leads.) Labs Labs: Laboratory Tests 05/12/24 19:15 WBC 18.4 H RBC 3.62 L Hgb 11.2 L Hct 31.3 L MCV 86.5 MCH 30.9 MCHC 35.8 RDW 13.3 Plt Count 209 MPV 9.4 Neut # (Auto) 13.9 H Lymph # (Auto) 2.7 [place] # (Auto) 1.7 H Eos # (Auto) 0.0 Baso # (Auto) 0.0 Absolute Nucleated RBC 0.00 Nucleated RBC % 0.0 Sodium 118 L* Potassium 3.4 L Chloride 86 L Carbon Dioxide 26 Anion Gap 6.0 BUN 15 Creatinine 0.6 Estimated GFR (MDRD) 99 Glucose 121 H Calcium 7.6 L Total Bilirubin 1.1 H AST 24 ALT 40 Alkaline Phosphatase 63 Troponin I High Sens 8.1 Total Protein 5.8 L Albumin 3.2 Globulin 2.6 Albumin/Globulin Ratio 1.2 Lipase 11 Procalcitonin Immunoas 0.28 Ethyl Alcohol < 10.0 Rads (name of study) cxr: Relevant Findings:: Final report received head CT: Relevant Findings:: Final report received PD Medical Decision Making ED course Complexity details: reviewed old records, reviewed results, re-evaluated patient, considered differential, d/w patient and d/w road consultant ED course: 69-year-old female with atrial fibrillation with rapid ventricular response. Given diltiazem and eventually started on a diltiazem drip. She is found to have hyponatremia with altered mental status, therefore a bolus of hypertonic saline was given. 100 mL over 10 minutes. Seem to improve her confusion slightly. Head CT does not show any acute abnormalities. Will need to be admitted for the hyponatremia and A-fib with RVR. Discussed the case with the hospitalist who accepts. This document was made in part using voice recognition software. While efforts are made to proofread this document, sound alike and grammatical errors may occur. Discharge Plan Discharge Patient Disposition: [facility] DC/Xfer Condition: Serious Clinical Impression: Acute hyponatremia, Atrial fibrillation with RVR Altered mental status Qualifiers: Altered mental status type: transient alteration of awareness Qualified Code(s): R40.4 - Transient alteration of awareness Interventions: ED Admission Assessment Last Done: 05/12/24 21:45
[2024-05-12 19:21] LABS: BASOPHILS % (AUTO) 0.2 %; EOSINOPHILS % (AUTO) 0.2 %; HCT - HEMATOCRIT 31.3 % (37.0-47.0); HGB - HEMOGLOBIN 11.2 g/dL (12.0-16.0); LYMPHOCYTES # (AUTO) 2.7 10^3/uL (1.5-3.5); LYMPHOCYTES % (AUTO) 14.5 %; MEAN CORPUSCULAR HEMOGLOBIN 30.9 pg (27.0-31.0); MEAN CORPUSCULAR HGB CONC 35.8 g/dL (32.0-36.0); MEAN CORPUSCULAR VOLUME 86.5 fL (81.0-99.0); MEAN PLATELET VOLUME 9.4 fL (7.9-10.8); MONOCYTES # (AUTO) 1.7 10^3/uL (0.0-1.0); MONOCYTES % (AUTO) 8.9 %; NEUTROPHILS # (AUTO) 13.9 10^3/uL (1.5-6.6); NEUTROPHILS % (AUTO) 75.5 %; PLT - PLATELET COUNT 209 10^3/uL (130-450); RED BLOOD COUNT 3.62 10^6/uL (4.20-5.40); RED CELL DISTRIBUTION WIDTH 13.3 % (12.0-15.0); WHITE BLOOD COUNT 18.4 x10^3/uL (4.8-10.8)
[2024-05-12] MEDS: diltiaZEM INJ 5 MG/ML VIAL IVP STA ×2 (19:25→20:08)
[2024-05-12 19:50] LABS: ETOH - ETHANOL < 10.0 mg/dL; LIPASE 11 U/L (11-82)
[2024-05-12 20:07] LABS: ALBUMIN 3.2 g/dL (3.2-5.5); ALBUMIN/GLOBULIN RATIO 1.2 (1.0-2.2); ALKALINE PHOSPHATASE 63 IU/L (42-121); ALT ALANINE AMINOTRANSFERASE 40 IU/L (10-60); AST ASPARTATE AMINOTRANSFERASE 24 IU/L (10-42); BILIRUBIN,TOTAL 1.1 mg/dL (0.2-1.0); BUN - BLOOD UREA NITROGEN 15 mg/dL (6-20); CALCIUM 7.6 mg/dL (8.5-10.3); CARBON DIOXIDE - CO2 26 mmol/L (21-32); CHLORIDE 86 mmol/L (101-111); CREATININE 0.6 mg/dL (0.6-1.3); GFR - MDRD 99 (>89); GLUCOSE 121 mg/dL (74-104); POTASSIUM 3.4 mmol/L (3.5-4.5); SODIUM 118 mmol/L (135-145); TOTAL PROTEIN 5.8 g/dL (6.4-8.9)
[2024-05-12] MEDS: diltiaZEM CD 120 MG CAPSULE PO STA (20:07)
--- NOTE | 2024-05-12 20:07 | XRAY Report ---
PROCEDURE: XR Chest 1V INDICATIONS: Chest Pain TECHNIQUE: One view of the chest was acquired. COMPARISON: 05/11/2024. FINDINGS: Surgical changes and devices: None. Lungs and pleura: Consolidative opacities and effusions which are better evaluated on prior CT. Mediastinum: Mediastinal contours appear normal. Heart size is enlarged, stable. Bones and chest wall: No suspicious bony lesions. Overlying soft tissues appear unremarkable. IMPRESSION: Consolidative opacities and effusions are evaluated on recent prior CT. No definite new acute pulmona ry process. Reviewed by: Mehul Anne MD on 05/12/2024 8:06 PM PST Approved by: Mehul Anne MD on 05/12/2024 8:06 PM PST Station ID: [id number]
[2024-05-12] MEDS: SODIUM CHLORIDE 0.9% 1,000 ML IV STA (20:10)
[2024-05-12] MEDS ORDERED: diltiaZEM INJ 5 MG/ML VIAL ONE (20:51)
[2024-05-12] MEDS: diltiaZEM INJ 125 MG in DEXTROSE 5% 100 ML IV STA (20:57)
[2024-05-12] MEDS: SODIUM CHLORIDE 3% HYPERTONIC 100 ML IV STA (20:59)
--- NOTE | 2024-05-12 21:19 | HISTORY & PHYSICAL EXAMINATION ---
Chief Complaint Chief Complaint Chief Complaint: Shortness of breath History of Present Illness Admitted From Admitted From:: Home History Obtained From History obtained from: Limited patient interview, chart review Exam Limitations: Encephalopathic History of Present Illness HPI Comment/Other: 69-year-old female H significant for A-fib RVR, asthma, hypertension who was just admitted for an exacerbation of her atrial fibrillation secondary to influenza A as well as a enlarged submandibular salivary gland. She was discharged on 05/11/2024, and has still been having difficulty breathing. Interview is difficult as she is encephalopathic. She is unsure what she takes at home. She is unsure if she has picked up any new scripts since leaving the hospital. In the ER, chest x-ray was performed which showed no new abnormality. She was found to be in A-fib RVR so she was started on a Cardizem drip by the ER provider. She does have a worsening leukocytosis which could be due to her steroid use. She was noted to have potassium 3.4 and sodium of 118, so hospitalist was contacted for admission for hyponatremia and atrial fibrillation with RVR Meds/Allgy Home Medications Ambulatory Orders Medication Instructions Recorded Confirmed Lactobacillus acidophilus 100 1 ea PO TID 04/26/13 05/09/24 million cell capsule alpha lipoic acid 50 mg capsule 50 mg PO DAILY 04/26/13 05/09/24 aspirin 81 mg tablet,delayed 81 mg PO DAILY 04/26/13 05/09/24 release (Aspir-) chromium picolinate 400 mcg tablet 400 mcg PO DAILY 04/26/13 05/09/24 coenzyme Q10 100 mg capsule 100 mg PO DAILY 04/26/13 05/09/24 fexofenadine 60 mg tablet 60 mg PO DAILY PRN Allergy Symptoms 04/26/13 05/09/24 omega 4-hob-cke-fish oil 980 1 ea PO DAILY 04/26/13 05/09/24 mg-1,400mg capsule,delayed release dextroamphetamine sulfate 10 mg See Rx Instructions PO DAILY #90 01/27/24 05/09/24 tablet tabs bupropion HCl 150 mg 24 hr tablet, 150 mg PO QAM #30 tabs 03/02/24 05/09/24 extended release (Wellbutrin XL) dextroamphetamine-amphetamine 20 20 mg PO BID #60 tabs 03/02/24 05/09/24 mg tablet azelastine 137 mcg (0.1 %) nasal 1 spray intranasal ONCE PRN 04/06/24 05/09/24 spray allergy symptoms blood sugar diagnostic (OneTouch 04/06/24 05/05/24 Ultra Test strips) cholecalciferol (vitamin D3) 50 50 mcg PO QDAY 04/06/24 05/09/24 mcg (2,000 unit) capsule diclofenac sodium 50 mg 50 mg PO ONCE PRN pain 04/06/24 05/09/24 tablet,delayed release estradiol 0.01% (0.1 mg/gram) 1 g vaginal QWEEK 04/06/24 05/09/24 vaginal cream fluticasone propionate 50 1 spray intranasal DAILY 04/06/24 05/09/24 mcg/actuation nasal spray,suspension montelukast 10 mg tablet 10 mg PO HS 04/06/24 05/09/24 multivitamin (Daily Multi-Vitamin 1 tab PO QDAY 04/06/24 05/09/24 tablet) mv-mn-folic 200 mcg-vit K 15 1 cap PO DAILY 04/06/24 05/09/24 mcg-lutein 5 mg-zeaxanthin 1 mg capsule (PreserVision AREDS 2 Plus Multivit) omeprazole 20 mg capsule,delayed 20 mg PO DAILY 04/06/24 05/09/24 release polyethylene glycol 3350 17 17 g PO HS PRN constipation 04/06/24 05/09/24 gram/dose oral powder (Miralax) potassium chloride 10 mEq 10 meq PO DAILY 04/06/24 05/09/24 tablet,extended release hydrochlorothiazide 25 mg tablet 25 mg PO QAM #90 tabs 04/23/24 05/09/24 albuterol sulfate 90 mcg/actuation 2 puff inhalation QID PRN 05/03/24 05/09/24 aerosol inhaler (Ventolin HFA) shortness of breath or wheezing #6.7 grams diazepam 2 mg tablet 2 mg PO DAILY PRN anxiety 05/09/24 05/09/24 fluticasone propionate 230 2 inh inhalation BID 05/09/24 05/09/24 mcg-salmeterol 21 mcg/actuation HFA inhaler levothyroxine 125 mcg tablet 125 mcg PO QDAY #90 tabs 05/10/24 (Levoxyl) amoxicillin 875 mg-potassium 1 tab PO BID #14 tabs 05/11/24 clavulanate 125 mg tablet diltiazem HCl 90 mg 90 mg PO BID #60 caps 05/11/24 capsule,extended release 12 hr hydrocodone 5 mg-acetaminophen 325 1 tab PO Q4H PRN pain #14 tabs 05/11/24 mg tablet prednisone 20 mg tablet 40 mg (2 x 20 mg) PO DAILYWM 2 05/11/24 days #4 tabs Allergies Allergies Allergy/AdvReac Type Severity Reaction Status Date / Time alprazolam (From Xanax) Allergy Severe Unknown Verified 05/12/24 18:54 influenza virus vaccine, Allergy Severe Unknown Verified 05/12/24 18:54 specific bupivacaine HCl * (From Allergy Unknown Verified 05/12/24 18:54 Marcaine-Epinephrine) ibuprofen Allergy Rash Verified 05/12/24 18:54 meperidine (From Demerol) Allergy Hives Verified 05/12/24 18:54 methylparaben Allergy Hives Verified 05/12/24 18:54 morphine Allergy Itching Verified 05/12/24 18:54 naproxen sodium * (From Allergy Itching Verified 05/12/24 18:54 Aleve) propoxyphene (From Darvon) Allergy Hives Verified 05/12/24 18:54 Sulfa (Sulfonamide Allergy Edema Verified 05/11/24 21:39 Antibiotics) Opioids - Morphine Analogues AdvReac Severe Unknown Verified 05/11/24 21:39 phenytoin sodium * (From AdvReac Hives Verified 05/11/24 21:39 Dilantin) phenytoin sodium extended * AdvReac Hives Verified 05/11/24 21:39 (From Dilantin) PFSH Active Problems All Active Problems (Updated 05/12/24 @ 20:16 by Buck Weinstein MD) Atrial fibrillation with RVR (Acute) Altered mental status (Acute) Acute hyponatremia (Acute) ADHD (attention deficit hyperactivity disorder) (Acute) Hypothyroid (Acute) Influenza A (Acute) Acute viral sialadenitis (Acute) Acute hypoxic respiratory failure (Acute) Flu (Acute) Encounter for medication adjustment (Acute) Chronic asthma (Acute) Hypotension (Acute) Tachycardia (Acute) CAP (community acquired pneumonia) (Acute) Dyspnea (Acute) Cough (Acute) A-fib (Acute) Dysfunction of left eustachian tube (Acute) Calf cramp (Acute) Hyperglycemia (Acute 04/10/10) Hormone replacement therapy (Acute 04/02/11) Herpes zoster (Acute 11/17/12) Essential hypertension, benign (Acute 03/22/09) Britni thyroiditis (Acute) Thrush (Acute 06/27/13) Pilonidal cyst (Acute 01/08/14) Obesity (Acute 06/27/13) Vaginitis and vulvovaginitis (Acute) Varicose veins of lower extremity (Acute) Osteoarthritis of left knee (Acute) Hyperlipidemia (Acute 03/09/13) Tremor of hands and face (Acute 09/20/21) Numbness of foot (Acute 10/01/21) Menopausal disorder (Acute 06/11/22) Inflamed seborrheic keratosis (Acute 05/27/22) Glucose intolerance (Acute 03/26/22) Gastritis (Acute 08/19/22) Colitis (Acute 08/19/22) Bunion, left (Acute 03/26/22) Chronic ethmoidal sinusitis (Acute) Reactive airway disease (Acute) Major depressive disorder, single episode, moderate (Acute) Nondependent alcohol abuse, continuous drinking behavior (Acute) Elevated hemoglobin A1c (Acute) Depression, major, recurrent, in partial remission (Acute) Grief reaction (Acute) Generalized anxiety disorder (Acute) Back pain, acute (Acute) Acute chest pain (Acute) GERD (gastroesophageal reflux disease) (Acute) Asthma, extrinsic (Acute) Subconjunctival hemorrhage of left eye (Acute) Alcohol use disorder, moderate, dependence (Acute) Generalized anxiety disorder with panic attacks (Acute) ADHD (attention deficit hyperactivity disorder), combined type (Acute) Diverticulitis (Acute) Leg pain, left (Acute) Abscess (Acute) Post-operative pain (Acute) Palpitations (Acute) Abrasion of sclera of left eye (Acute) Abdominal pain (Acute) Medical History Medical History Constipation (08/31/14) Bronchitis, acute (12/12/09) Breast cancer (11/17/12) Ankle pain, right (09/20/21) Surgical History Surgical History History of cholecystectomy (1975) History of appendectomy (1975) Family History Family History Mother Breast cancer Father Heart attack CAD (coronary artery disease) CVA (cerebral vascular accident) Other Depressed Diabetes High blood pressure Social History Social History (Updated 05/11/24 @ 22:14 by Lashae Santiago RN) Smoking Status: Never smoker Second hand tobacco smoke exposure: No Do you dip or chew tobacco?: No Do you vape?: No Patient requests smoking cessation consult: No Initiate information on smoking cessation: No Living arrangement: At home Marital Status: Living Condition: Alone and With spouse/s.o. Relationship: Physical Activity: Walking Level: Assisted Do you feel safe in your home environment?: Yes Suffered physical, verbal, emotional, or financial abuse?: No History of Abuse: No ETOH Use: None and Wine Frequency: Weekly ETOH Use Details: states "a couple of glasses a wine once a week or every other week" Substance Use: denies use Retired: Yes Service: No Are you following a diet prescribed by a doctor: No Are you following a special diet: No POLST Patient has POLST: No POLST Status: DNR Review of Systems Status of ROS: unobtainable due to mental status Exam Constitutional Chronically ill-appearing, tearful, forgetful during interview HENMT normocephalic and head/scalp atraumatic Eyes PERRL Neck/C-Spine visual inspection normal Lymph no lymphadenopathy noted Chest inspection of chest normal Respiratory Rhonchorous breath sounds Cardiovascular no murmur and edema noted A-fib RVR on monitor Gastrointestinal abdomen normal to inspection and abdomen soft to palpation Neurology Oriented x 2, easily distracted during conversation. Moves all extremities. Tearful Psychiatry Encephalopathic, easily distracted during interview, crying intermittently Skin skin color normal Conclusion/Plan Problem List (1) Acute hyponatremia: Plan: ER ordered hypertonic saline and a liter bolus of normal saline Sodium checks Q4 To monitor as she improves Cautious about IV saline, as she appears somewhat fluid overloaded 2 g sodium chloride p.o. 3 times daily Her hyponatremia may be dilutional. I am going to order Lasix 20 mg IV (2) Atrial fibrillation with RVR: Plan: Likely exacerbated by her hyponatremia as well as residual dyspnea from influenza Cardizem drip initiated by ER provider Check echo DC summary from last admission states that she should be on bisoprolol. She does not know if she has been taking this Metoprolol 25 mg p.o. twice daily (3) Altered mental status: Plan: Likely secondary to acute hyponatremia Follow-up CT head Qualifiers: Altered mental status type: transient alteration of awareness Qualified Code(s): R40.4 - Transient alteration of awareness (4) Reactive airway disease: Plan: Has residual dyspnea secondary to her chronic lung disease as well as recent influenza Anxiety is a component of this, she was already being treated with benzodiazepines during last admission Checking procalcitonin to see if there is a superimposed bacterial pneumonia. She has completed a course of antibiotics so this is unlikely Continue home inhaler regimen Qualifiers: Asthma severity: mild Asthma persistence: unspecified Qualified Code(s): J45.909 - Unspecified asthma, uncomplicated Plan Admit to inpatient She does not have a POLST on file, she is not decisional at this time Will maintain full code for now Her PCP is Ting Salgado Lab Results Lab results reviewed: Yes 05/12/24 19:15 05/12/24 19:15 Diagnostic Imaging Results Diagnostic Imaging Results: positive Final report reviewed Diagnostic Imaging Results Comments: CXR no new abnormalities EKG Results EKG Interpreted Independently: Yes EKG Findings: Atrial fibrillation, Rate 120 Core Measures Anticipated LOS I expect patient to be DC'd or transferred within 96 hours.: Yes DVT/VTE - Prophylaxis VTE/DVT Prophylaxis med ordered at admit?: Yes
[2024-05-12] MEDS ORDERED: ONDANSETRON 4 MG/2 ML VIAL IVP PRN (21:52)
[2024-05-12] MEDS ORDERED: ONDANSETRON ODT 4 MG TABLET TL PRN (21:52)
[2024-05-12] MEDS ORDERED: SODIUM CHLORIDE FLUSH 0.9% 10 ML SYRINGE IVP PRN (21:52)
--- NOTE | 2024-05-12 21:58 | CT Report ---
PROCEDURE: CT Head WO INDICATIONS: altered mental status TECHNIQUE: Noncontrast 4.5 mm thick angled axial sections acquired from the foramen magnum to the vertex. For r adiation dose reduction, the following was used: automated exposure control, adjustment of mA and/or kV according to patient size. COMPARISON: None. FINDINGS: Image quality: Excellent. CSF spaces: Basal cisterns are patent. No extra-axial fluid collections. Ventricles are normal in size and shape. Brain: No midline shift. No intracranial masses or hemorrhage. Das-white matter interface is norm al. Age-related global volume loss and chronic microvascular ischemic changes. Intracranial atheroscl erotic vascular calcifications. Gas is seen within the dural venous sinuses, most pronounced in the s uperior sagittal sinus. Skull and face: Calvarium and visualized facial bones are intact, without suspicious lesions. Sinuses: Visualized sinuses and mastoids are clear. IMPRESSION: 1.No acute intracranial pathology. 2.Gas is seen within the dural venous sinuses, most pronounced in the superior sagittal sinus, as wel l as the left internal jugular vein. This is likely related to IV. Reviewed by: Mehul Anne MD on 05/12/2024 9:57 PM PST Approved by: Mehul Anne MD on 05/12/2024 9:57 PM PST Station ID: [id number]
[2024-05-12] MEDS: [UNRECOGNIZED DRUG - OTHER] INH SCH (22:24)
[2024-05-12] MEDS: FLUTICASONE PROPION SALMETEROL INH SCH (22:24)
[2024-05-12] MEDS: MONTELUKAST 10 MG TABLET PO SCH (22:36)
[2024-05-12] MEDS: SODIUM CHLORIDE 1 GM TABLET PO SCH (22:36)
[2024-05-12] MEDS: FUROSEMIDE 20 MG/2 ML VIAL IVP SCH (22:39)
[2024-05-12] MEDS: ACETAMINOPHEN 325 MG TABLET PO PRN (22:49)
[2024-05-12] MEDS: ALBUTEROL NEB 2.5 MG/3 ML INH PRN (22:50)
[2024-05-12] MEDS: POTASSIUM CHLORIDE 20 MEQ TABLET PO SCH (23:41)
[2024-05-13] MEDS: SODIUM CHLORIDE FLUSH 0.9% 10 ML SYRINGE IVP SCH (00:36)
[2024-05-13 00:37] LABS: CALCIUM, IONIZED 1.01 mmol/L (1.09-1.30)
[2024-05-13 00:40] LABS: COCAINE SCREEN URINE NEGATIVE (NEGATIVE); THC CANNABINOID SCREEN, URINE NEGATIVE (NEGATIVE)
[2024-05-13 00:41] LABS: AMPHETAMINE SCREEN,URINE POSITIVE (NEGATIVE); BARBITURATE SCREEN,UR NEGATIVE (NEGATIVE); BENZODIAZEPINES SCREEN, URINE NEGATIVE (NEGATIVE); BUPRENORPHINE SCREEN, URINE NEGATIVE (NEGATIVE); METHADONE SCREEN, URINE NEGATIVE (NEGATIVE); METHAMPHETAMINES SCREEN, URINE NEGATIVE (NEGATIVE); OPIATE SCREEN, URINE POSITIVE (NEGATIVE); OXYCODONE SCREEN, URINE NEGATIVE (NEGATIVE); TRICYCLIC ANTIDEPRESSANT,URINE NEGATIVE (NEGATIVE)
[2024-05-13 00:47] LABS: MAGNESIUM 1.5 mg/dL (1.7-2.3)
[2024-05-13 00:53] LABS: PHOSPHORUS 3.9 mg/dL (2.5-5.0)
[2024-05-13] MEDS: MAGNESIUM OXIDE 400 MG TABLET PO ONE ×2 (02:04→11:56)
[2024-05-13] MEDS: CALCIUM CARBONATE CHEW 500 MG TABLET PO SCH (02:05)
[2024-05-13 05:22] LABS: BASOPHILS % (AUTO) 0.1 %; HCT - HEMATOCRIT 32.1 % (37.0-47.0); HGB - HEMOGLOBIN 10.9 g/dL (12.0-16.0); LYMPHOCYTES # (AUTO) 0.8 10^3/uL (1.5-3.5); LYMPHOCYTES % (AUTO) 6.9 %; MEAN CORPUSCULAR HEMOGLOBIN 29.6 pg (27.0-31.0); MEAN CORPUSCULAR VOLUME 87.2 fL (81.0-99.0); MEAN PLATELET VOLUME 9.7 fL (7.9-10.8); MONOCYTES # (AUTO) 0.6 10^3/uL (0.0-1.0); MONOCYTES % (AUTO) 5.3 %; NEUTROPHILS # (AUTO) 10.3 10^3/uL (1.5-6.6); NEUTROPHILS % (AUTO) 86.9 %; PLT - PLATELET COUNT 221 10^3/uL (130-450); RED BLOOD COUNT 3.68 10^6/uL (4.20-5.40); RED CELL DISTRIBUTION WIDTH 13.4 % (12.0-15.0); WHITE BLOOD COUNT 11.8 x10^3/uL (4.8-10.8)
[2024-05-13 05:41] LABS: CALCIUM 7.8 mg/dL (8.5-10.3); CREATININE 0.7 mg/dL (0.6-1.3); POTASSIUM 3.9 mmol/L (3.5-4.5)
[2024-05-13] MEDS: PANTOPRAZOLE 40 MG TABLET PO SCH (06:08)
[2024-05-13] MEDS: PRENATAL VITAMIN TABLET PO SCH (08:08)
[2024-05-13] MEDS: predniSONE 20 MG TABLET PO SCH (08:08)
[2024-05-13] MEDS: MULTIVITAMIN TABLET PO SCH (08:08)
[2024-05-13] MEDS: hydroCHLOROthiazide 25 MG TABLET PO SCH (08:09)
[2024-05-13] MEDS: diltiaZEM CD 180 MG CAPSULE PO SCH (08:09)
[2024-05-13] MEDS: buPROPion XL 150 MG TABLET PO SCH (08:09)
[2024-05-13] MEDS: CHOLECALCIFEROL 25 MCG TABLET PO SCH (08:09)
[2024-05-13] MEDS: ASPIRIN EC 81 MG TABLET PO SCH (08:09)
[2024-05-13] MEDS: LEVOTHYROXINE 125 MCG TABLET PO SCH (08:09)
[2024-05-13] MEDS: ENOXAPARIN 40 MG/0.4 ML SYRINGE SUBQ SCH (08:10)
--- NOTE | 2024-05-13 08:32 | PHARMACY PROGRESS NOTE ---
Best Possible Medication History Admit Date and Time: 05/12/242100 Home Medications Medication Instructions Recorded Confirmed Type Lactobacillus acidophilus 100 1 ea PO TID 04/26/13 05/13/24 History million cell capsule alpha lipoic acid 50 mg capsule 50 mg PO DAILY 04/26/13 05/13/24 History aspirin 81 mg tablet,delayed 81 mg PO DAILY 04/26/13 05/13/24 History release (Aspir-) chromium picolinate 400 mcg tablet 400 mcg PO DAILY 04/26/13 05/13/24 History coenzyme Q10 100 mg capsule 100 mg PO DAILY 04/26/13 05/13/24 History fexofenadine 60 mg tablet 60 mg PO DAILY PRN Allergy Symptoms 04/26/13 05/13/24 History omega 7-vml-zyt-fish oil 980 1 ea PO DAILY 04/26/13 05/13/24 History mg-1,400mg capsule,delayed release dextroamphetamine sulfate 10 mg See Rx Instructions PO DAILY #90 01/27/24 05/13/24 Rx tablet tabs bupropion HCl 150 mg 24 hr tablet, 150 mg PO QAM #30 tabs 03/02/24 05/13/24 Rx extended release (Wellbutrin XL) dextroamphetamine-amphetamine 20 20 mg PO BID #60 tabs 03/02/24 05/13/24 Rx mg tablet azelastine 137 mcg (0.1 %) nasal 1 spray intranasal ONCE PRN 04/06/24 05/13/24 History spray allergy symptoms blood sugar diagnostic (OneTouch 04/06/24 05/05/24 History Ultra Test strips) cholecalciferol (vitamin D3) 50 50 mcg PO QDAY 04/06/24 05/13/24 History mcg (2,000 unit) capsule diclofenac sodium 50 mg 50 mg PO ONCE PRN pain 04/06/24 05/13/24 History tablet,delayed release estradiol 0.01% (0.1 mg/gram) 1 g vaginal QWEEK 04/06/24 05/13/24 History vaginal cream fluticasone propionate 50 1 spray intranasal DAILY 04/06/24 05/13/24 History mcg/actuation nasal spray,suspension montelukast 10 mg tablet 10 mg PO HS 04/06/24 05/13/24 History multivitamin (Daily Multi-Vitamin 1 tab PO QDAY 04/06/24 05/13/24 History tablet) mv-mn-folic 200 mcg-vit K 15 1 cap PO DAILY 04/06/24 05/13/24 History mcg-lutein 5 mg-zeaxanthin 1 mg capsule (PreserVision AREDS 2 Plus Multivit) omeprazole 20 mg capsule,delayed 20 mg PO DAILY 04/06/24 05/13/24 History release polyethylene glycol 3350 17 17 g PO HS PRN constipation 04/06/24 05/13/24 History gram/dose oral powder (Miralax) potassium chloride 10 mEq 10 meq PO DAILY 04/06/24 05/13/24 History tablet,extended release hydrochlorothiazide 25 mg tablet 25 mg PO QAM #90 tabs 04/23/24 05/13/24 Rx albuterol sulfate 90 mcg/actuation 2 puff inhalation QID PRN 05/03/24 05/13/24 Rx aerosol inhaler (Ventolin HFA) shortness of breath or wheezing #6.7 grams diazepam 2 mg tablet 2 mg PO DAILY PRN anxiety 05/09/24 05/13/24 History fluticasone propionate 230 2 inh inhalation BID 05/09/24 05/13/24 History mcg-salmeterol 21 mcg/actuation HFA inhaler levothyroxine 125 mcg tablet 125 mcg PO QDAY #90 tabs 05/10/24 05/13/24 Rx (Levoxyl) amoxicillin 875 mg-potassium 1 tab PO BID #14 tabs 05/11/24 05/13/24 Rx clavulanate 125 mg tablet diltiazem HCl 90 mg 90 mg PO BID #60 caps 05/11/24 05/13/24 Rx capsule,extended release 12 hr hydrocodone 5 mg-acetaminophen 325 1 tab PO Q4H PRN pain #14 tabs 05/11/24 05/13/24 Rx mg tablet prednisone 20 mg tablet 40 mg (2 x 20 mg) PO DAILYWM 2 05/11/24 05/13/24 Rx days #4 tabs Processed by: Pharmacy Medications reviewed in ED?: No Medication History completed: Yes Secondary Source(s): Previous admit records [facility] Statement: As the person ultimately responsible for medication therapy, providers are able to order a medication from an existing home medication list in [facility] via the "Reconcile Routine" prior to Confirmation of that medication by supportive employment case manager. Such practice is discouraged except when the physician, in their clinical judgment, deems that a medical need exists for a medication without regard to previous use.
[2024-05-13 08:56] LABS: MAGNESIUM 1.8 mg/dL (1.7-2.3); POTASSIUM 3.9 mmol/L (3.5-4.5)
[2024-05-13] MEDS: BUDESONIDE 0.5 MG/2 ML NEB INH SCH (09:10)
[2024-05-13] MEDS: FORMOTEROL FUMARATE NEB 20 MCG/2 ML INH SCH (09:10)
[2024-05-13] MEDS: DEXTROSE 5% 1,000 ML IV SCH (10:23)
[2024-05-13] MEDS: POTASSIUM CHLORIDE 20 MEQ TABLET PO ONE (11:56)
--- NOTE | 2024-05-13 12:14 | PROVIDER PROGRESS NOTE ---
Subjective Prog Note Date Prog Note Date: 05/13/24 Subjective Pt reports feeling: Improved Current Medications Current Medications Current Medications: Current Medications Generic Name Dose Route Start Last Admin Trade Name Freq PRN Reason Stop Dose Admin Acetaminophen 650 mg 05/12/24 21:52 05/12/24 22:49 Acetaminophen 325 Mg Tablet PO 650 mg Q4HR PRN Administration Pain 1 to 4, or Fever Albuterol 2.5 mg 05/12/24 22:16 05/12/24 22:50 Albuterol Neb 2.5 Mg/3 Ml INH 2.5 mg QID PRN Administration shortness of breath or wheezing Albuterol/Ipratropium 3 ml 05/13/24 00:53 Ipratropium/Albuterol 3 Ml Neb INH RTQ4H PRN Wheezing Aspirin 81 mg 05/13/24 09:00 05/13/24 08:09 Aspirin Ec 81 Mg Tablet PO 81 mg DAILY MARIYA Administration Budesonide 0.5 mg 05/13/24 07:00 05/13/24 09:10 Budesonide 0.5 Mg/2 Ml Neb INH 0.5 mg RTBID MARIYA Administration Bupropion HCl 150 mg 05/13/24 09:00 05/13/24 08:09 Bupropion Xl 150 Mg Tablet PO 150 mg DAILY MARIYA Administration Cholecalciferol 50 mcg 05/13/24 09:00 05/13/24 08:09 Cholecalciferol 25 Mcg Tablet PO 50 mcg DAILY MARIYA Administration Diazepam 2.5 mg 05/13/24 10:17 Diazepam 5 Mg Tablet PO DAILY PRN anxiety Diltiazem HCl 180 mg 05/13/24 09:00 05/13/24 08:09 Diltiazem Cd 180 Mg Capsule PO 180 mg DAILY MARIYA Administration Enoxaparin Sodium 40 mg 05/13/24 09:00 05/13/24 08:10 Enoxaparin 40 Mg/0.4 Ml Syringe SUBQ 40 mg DAILY MARIYA Administration Formoterol Fumarate 20 mcg 05/13/24 07:00 05/13/24 09:10 Formoterol Fumarate Neb 20 Mcg/2 Ml INH 20 mcg RTBID MARIYA Administration Furosemide 20 mg 05/12/24 21:52 05/13/24 08:10 Furosemide 20 Mg/2 Ml Vial IVP 20 mg DAILY MARIYA Administration Hydrochlorothiazide 25 mg 05/13/24 09:00 05/13/24 08:09 Hydrochlorothiazide 25 Mg Tablet PO 25 mg DAILY MARIYA Administration Diltiazem HCl 125 mg/ Dextrose 125 mls @ 5 mls/hr 05/12/24 20:11 05/13/24 10:33 IV 05/13/24 21:10 5 mg/hr TITR STA 5 mls/hr Titration Protocol 5 MG/HR Dextrose 1,000 mls @ 100 mls/hr 05/13/24 11:00 05/13/24 10:23 D5w IV 100 mls/hr .Q10H MARIYA Administration Levothyroxine Sodium 125 mcg 05/14/24 07:00 Levothyroxine 125 Mcg Tablet PO QDAC MARIYA Melatonin 3 mg 05/13/24 01:00 Melatonin 3 Mg Tablet PO 05/14/24 00:59 ONCE MARIYA Montelukast Sodium 10 mg 05/12/24 21:52 05/12/24 22:36 Montelukast 10 Mg Tablet PO 10 mg HS MARIYA Administration Multivitamins 1 tab 05/13/24 08:00 05/13/24 08:08 Multivitamin Tablet PO 1 tab DAILYWM MARIYA Administration Ondansetron HCl 4 mg 05/12/24 21:52 Ondansetron 4 Mg/2 Ml Vial IVP Q6HR PRN Nausea / Vomiting Ondansetron HCl 4 mg 05/12/24 21:52 Ondansetron Odt 4 Mg Tablet TL Q6HR PRN Nausea / Vomiting Pantoprazole Sodium 40 mg 05/13/24 07:00 05/13/24 06:08 Pantoprazole 40 Mg Tablet PO 40 mg QDAC MARIYA Administration Prednisone 40 mg 05/13/24 08:00 05/13/24 08:08 Prednisone 20 Mg Tablet PO 40 mg DAILYWM MARIYA Administration Multivit/Folic Acid/Iron 1 tab 05/13/24 08:00 05/13/24 08:08 Vitamin Tablet PO 1 tab DAILYWM MARIYA Administration Sodium Chloride 10 ml 05/13/24 01:00 05/13/24 08:10 Sodium Chloride Flush 0.9% 10 Ml Syringe IVP 10 ml 0100,0900,1700 MARIYA Administration Sodium Chloride 10 ml 05/12/24 21:52 Sodium Chloride Flush 0.9% 10 Ml Syringe IVP PRN PRN NEEDED PER PROVIDER ORDERS Objective Vital Signs/Intake & Output Reviewed Vital Signs: Yes Vital Signs: Vital Signs x48h Temp Pulse Pulse Resp BP Pulse Ox O2 Flow Rate 05/13/24 11:00 114 H 16 92/78 94 05/13/24 10:00 114 H 20 85/61 L 93 93 05/13/24 09:11 118 H 16 05/13/24 09:00 101 H 16 103/75 97 05/13/24 08:00 36.7 C 109 H 23 93/65 97 05/13/24 07:00 85 13 88/68 L 95 05/13/24 06:00 102 H 14 92/67 95 05/13/24 05:00 90 14 88/64 L 94 Intake & Output: Intake & Output 05/10/24 05/11/24 05/12/24 05/13/24 23:59 23:59 23:59 23:59 Intake Total 2833 / 2833 Output Total 800 / 800 3100 / 3100 Balance -800 / -800 -267 / -267 Weight (kg) 97 kg 96.5 kg Objective General Appearance: positive No acute distress and Alert Eyes Bilateral: positive Normal inspection ENT: positive ENT inspection nml Neck: positive Nml inspection Respiratory: positive Chest non-tender, No respiratory distress and Rhonchi Cardiovascular: positive Irregularly irregular Abdomen: positive Non-tender Skin: positive Color nml Extremities: positive Pedal edema Neurologic/Psychiatric: positive Oriented x3 Lab Results 05/13/24 05:11 05/13/24 08:15 Other Labs: Lab Results x24hrs 05/13/24 05/13/24 05/13/24 Range/Units 08:15 05:11 00:19 WBC 11.8 H (4.8-10.8) x10^3/uL RBC 3.68 L (4.20-5.40) 10^6/uL Hgb 10.9 L (12.0-16.0) g/dL Hct 32.1 L (37.0-47.0) % MCV 87.2 (81.0-99.0) fL MCH 29.6 (27.0-31.0) pg MCHC 34.0 (32.0-36.0) g/dL RDW 13.4 (12.0-15.0) % Plt Count 221 (130-450) 10^3/uL MPV 9.7 (7.9-10.8) fL Neut # (Auto) 10.3 H (1.5-6.6) 10^3/uL Lymph # (Auto) 0.8 L (1.5-3.5) 10^3/uL Hitchcock # (Auto) 0.6 (0.0-1.0) 10^3/uL Eos # (Auto) 0.0 (0.0-0.7) 10^3/uL Baso # (Auto) 0.0 (0.0-0.1) 10^3/uL Absolute Nucleated RBC 0.00 x10^3/uL Nucleated RBC % 0.0 /100WBC VBG pH 7.543 H 7.566 H (7.31-7.41) Ionized Calcium 1.10 1.01 L (1.09-1.30) mmol/L Sodium 130 L 127 L 123 L (135-145) mmol/L Potassium 3.9 3.9 (3.5-4.5) mmol/L Chloride 93 L (101-111) mmol/L Carbon Dioxide 26 (21-32) mmol/L Anion Gap 8.0 (6-13) BUN 15 (6-20) mg/dL Creatinine 0.7 (0.6-1.3) mg/dL Estimated GFR (MDRD) 83 L (>89) Glucose 256 H (74-104) mg/dL Calcium 7.8 L (8.5-10.3) mg/dL Phosphorus 3.9 (2.5-5.0) mg/dL Magnesium 1.8 1.5 L (1.7-2.3) mg/dL Total Bilirubin (0.2-1.0) mg/dL AST (10-42) IU/L ALT (10-60) IU/L Alkaline Phosphatase (42-121) IU/L Troponin I High Sens (2.3-14.8) ng/L Total Protein (6.4-8.9) g/dL Albumin (3.2-5.5) g/dL Globulin (2.1-4.2) g/dL Albumin/Globulin Ratio (1.0-2.2) Lipase (11-82) U/L Procalcitonin Immunoas (<0.5) ng/mL Nasal Screen MRSA (PCR) (NEGATIVE) Urine Opiates Screen (NEGATIVE) Ur Buprenorphine Scrn (NEGATIVE) Ur Oxycodone Screen (NEGATIVE) Urine Methadone Screen (NEGATIVE) Ur Barbiturates Screen (NEGATIVE) Ur Tricyclics Screen (NEGATIVE) Ur Phencyclidine Scrn (NEGATIVE) Ur Amphetamine Screen (NEGATIVE) U Methamphetamines Scrn (NEGATIVE) U Benzodiazepines Scrn (NEGATIVE) Urine Cocaine Screen (NEGATIVE) U Cannabinoids Screen (NEGATIVE) Ur Drug Screen Comment Ethyl Alcohol mg/dL 05/12/24 05/12/24 05/12/24 Range/Units 23:35 22:00 19:15 WBC 18.4 H (4.8-10.8) x10^3/uL RBC 3.62 L (4.20-5.40) 10^6/uL Hgb 11.2 L (12.0-16.0) g/dL Hct 31.3 L (37.0-47.0) % MCV 86.5 (81.0-99.0) fL MCH 30.9 (27.0-31.0) pg MCHC 35.8 (32.0-36.0) g/dL RDW 13.3 (12.0-15.0) % Plt Count 209 (130-450) 10^3/uL MPV 9.4 (7.9-10.8) fL Neut # (Auto) 13.9 H (1.5-6.6) 10^3/uL Lymph # (Auto) 2.7 (1.5-3.5) 10^3/uL Hitchcock # (Auto) 1.7 H (0.0-1.0) 10^3/uL Eos # (Auto) 0.0 (0.0-0.7) 10^3/uL Baso # (Auto) 0.0 (0.0-0.1) 10^3/uL Absolute Nucleated RBC 0.00 x10^3/uL Nucleated RBC % 0.0 /100WBC VBG pH (7.31-7.41) Ionized Calcium (1.09-1.30) mmol/L Sodium 118 L* (135-145) mmol/L Potassium 3.4 L (3.5-4.5) mmol/L Chloride 86 L (101-111) mmol/L Carbon Dioxide 26 (21-32) mmol/L Anion Gap 6.0 (6-13) BUN 15 (6-20) mg/dL Creatinine 0.6 (0.6-1.3) mg/dL Estimated GFR (MDRD) 99 (>89) Glucose 121 H (74-104) mg/dL Calcium 7.6 L (8.5-10.3) mg/dL Phosphorus (2.5-5.0) mg/dL Magnesium (1.7-2.3) mg/dL Total Bilirubin 1.1 H (0.2-1.0) mg/dL AST 24 (10-42) IU/L ALT 40 (10-60) IU/L Alkaline Phosphatase 63 (42-121) IU/L Troponin I High Sens 8.1 (2.3-14.8) ng/L Total Protein 5.8 L (6.4-8.9) g/dL Albumin 3.2 (3.2-5.5) g/dL Globulin 2.6 (2.1-4.2) g/dL Albumin/Globulin Ratio 1.2 (1.0-2.2) Lipase 11 (11-82) U/L Procalcitonin Immunoas 0.28 (<0.5) ng/mL Nasal Screen MRSA (PCR) NEGATIVE (NEGATIVE) Urine Opiates Screen POSITIVE H (NEGATIVE) Ur Buprenorphine Scrn NEGATIVE (NEGATIVE) Ur Oxycodone Screen NEGATIVE (NEGATIVE) Urine Methadone Screen NEGATIVE (NEGATIVE) Ur Barbiturates Screen NEGATIVE (NEGATIVE) Ur Tricyclics Screen NEGATIVE (NEGATIVE) Ur Phencyclidine Scrn NEGATIVE (NEGATIVE) Ur Amphetamine Screen POSITIVE H (NEGATIVE) U Methamphetamines Scrn NEGATIVE (NEGATIVE) U Benzodiazepines Scrn NEGATIVE (NEGATIVE) Urine Cocaine Screen NEGATIVE (NEGATIVE) U Cannabinoids Screen NEGATIVE (NEGATIVE) Ur Drug Screen Comment CUTOFF CONC BELOW: Ethyl Alcohol < 10.0 mg/dL Assessment/Plan Problem List (1) Acute hyponatremia: Impression: Received hypertonic saline in the ER as well as a liter bolus of normal saline Sodium checks Q4. Goal correction no more than 8 in a 24-hour period To prevent central pontine demyelination I think her hyponatremia is dilutional, so I have started her on Lasix 20 mg IV daily She was started on salt tabs last night, but her sodium corrected too fast so these have been discontinued and she has been started on D5 at 100 Checking echocardiogram to see if she has a component of heart failure (2) Atrial fibrillation with RVR: Impression: Likely exacerbated by hyponatremia as well as residual dyspnea from influenza Cardizem drip initiated by ER provider Cardizem 180 mg XR daily Check echo TSH in a.m. (3) Altered mental status: Impression: Much improved after her sodium has increased CT head no acute pathology. Stroke not likely Qualifiers: Altered mental status type: transient alteration of awareness Qualified Code(s): R40.4 - Transient alteration of awareness (4) Reactive airway disease: Impression: Has residual dyspnea secondary to her chronic lung disease as well as recent influenza Anxiety is a component of this, she was already being treated with benzodiazepines during last admission She completed a course of antibiotics for pneumonia. Her procalcitonin level is negative so bacterial pneumonia is unlikely Continue home inhaler regimen Qualifiers: Asthma severity: mild Asthma persistence: unspecified Qualified Code(s): J45.909 - Unspecified asthma, uncomplicated
[2024-05-13] MEDS: ALBUMIN 25% 12.5 GM/50 ML VIAL IV STA (13:00)
[2024-05-13 16:09] LABS: MAGNESIUM 1.5 mg/dL (1.7-2.3)
[2024-05-13] MEDS: MAGNESIUM SULFATE 2 GRAM 2 GM/50 ML BAG IV ONE (16:27)
[2024-05-13] MEDS: SODIUM CHLORIDE 1 GM TABLET PO SCH (22:40)
[2024-05-14] MEDS: MELATONIN 3 MG TABLET PO SCH (00:35)
[2024-05-14] MEDS: diazePAM 5 MG TABLET PO PRN (03:44)
[2024-05-14 04:38] LABS: BASOPHILS % (AUTO) 0.1 %; CALCIUM, IONIZED 1.17 mmol/L (1.09-1.30); EOSINOPHILS % (AUTO) 0.2 %; HCT - HEMATOCRIT 31.3 % (37.0-47.0); LYMPHOCYTES # (AUTO) 2.2 10^3/uL (1.5-3.5); MEAN CORPUSCULAR HEMOGLOBIN 30.7 pg (27.0-31.0); MEAN CORPUSCULAR HGB CONC 35.1 g/dL (32.0-36.0); MEAN CORPUSCULAR VOLUME 87.4 fL (81.0-99.0); MEAN PLATELET VOLUME 9.8 fL (7.9-10.8); MONOCYTES % (AUTO) 7.3 %; NEUTROPHILS # (AUTO) 10.2 10^3/uL (1.5-6.6); PLT - PLATELET COUNT 228 10^3/uL (130-450); RED BLOOD COUNT 3.58 10^6/uL (4.20-5.40); RED CELL DISTRIBUTION WIDTH 13.5 % (12.0-15.0); WHITE BLOOD COUNT 13.4 x10^3/uL (4.8-10.8)
[2024-05-14 04:53] LABS: CALCIUM 8.4 mg/dL (8.5-10.3); CREATININE 0.6 mg/dL (0.6-1.3); MAGNESIUM 1.7 mg/dL (1.7-2.3); PHOSPHORUS 2.4 mg/dL (2.5-5.0)
[2024-05-14] MEDS: MAGNESIUM OXIDE 400 MG TABLET PO ONE ×2 (06:57→18:20)
[2024-05-14] MEDS: LEVOTHYROXINE 125 MCG TABLET PO SCH (06:58)
[2024-05-14] MEDS: polyethylene glycoL 3350 17 GM PACKET PO SCH (08:11)
[2024-05-14] MEDS: diltiaZEM INJ 125 MG in DEXTROSE 5% 100 ML IV SCH (08:13)
[2024-05-14] MEDS: SODIUM PHOSPHATE 15 MMOL in SODIUM CHLORIDE 0.9% 250 ML IV ONE (10:33)
[2024-05-14] MEDS: diltiaZEM 30 MG TABLET PO SCH (12:13)
--- NOTE | 2024-05-14 13:21 | PROVIDER PROGRESS NOTE ---
Subjective Prog Note Date Prog Note Date: 05/14/24 Subjective Pt reports feeling: Improved Current Medications Current Medications Current Medications: Current Medications Generic Name Dose Route Start Last Admin Trade Name Freq PRN Reason Stop Dose Admin Acetaminophen 650 mg 05/12/24 21:52 05/14/24 03:42 Acetaminophen 325 Mg Tablet PO 650 mg Q4HR PRN Administration Pain 1 to 4, or Fever Albuterol 2.5 mg 05/12/24 22:16 05/14/24 00:25 Albuterol Neb 2.5 Mg/3 Ml INH 2.5 mg QID PRN Administration shortness of breath or wheezing Albuterol/Ipratropium 3 ml 05/13/24 00:53 Ipratropium/Albuterol 3 Ml Neb INH RTQ4H PRN Wheezing Aspirin 81 mg 05/13/24 09:00 05/14/24 08:13 Aspirin Ec 81 Mg Tablet PO 81 mg DAILY MARIYA Administration Budesonide 0.5 mg 05/13/24 07:00 05/14/24 07:21 Budesonide 0.5 Mg/2 Ml Neb INH 0.5 mg RTBID MARIYA Administration Bupropion HCl 150 mg 05/13/24 09:00 05/14/24 08:14 Bupropion Xl 150 Mg Tablet PO 150 mg DAILY MARIYA Administration Cholecalciferol 50 mcg 05/13/24 09:00 05/14/24 08:13 Cholecalciferol 25 Mcg Tablet PO 50 mcg DAILY MARIYA Administration Diazepam 2.5 mg 05/13/24 10:17 05/14/24 03:44 Diazepam 5 Mg Tablet PO 2.5 mg DAILY PRN Administration anxiety Diltiazem HCl 15 mg 05/14/24 12:00 05/14/24 12:13 Diltiazem 30 Mg Tablet PO 15 mg Q6HR MARIYA Administration Diltiazem HCl 240 mg 05/15/24 09:00 Diltiazem Cd 240 Mg Capsule PO DAILY MARIYA Enoxaparin Sodium 40 mg 05/13/24 09:00 05/14/24 08:12 Enoxaparin 40 Mg/0.4 Ml Syringe SUBQ 40 mg DAILY MARIYA Administration Formoterol Fumarate 20 mcg 05/13/24 07:00 05/14/24 07:21 Formoterol Fumarate Neb 20 Mcg/2 Ml INH 20 mcg RTBID MARIYA Administration Furosemide 20 mg 05/15/24 09:00 Furosemide 20 Mg Tablet PO DAILY MARIYA Hydrochlorothiazide 25 mg 05/13/24 09:00 05/14/24 08:15 Hydrochlorothiazide 25 Mg Tablet PO 25 mg DAILY MARIYA Administration Sodium Phosphate 15 mmol/ 255 mls @ 63.75 mls/hr 05/14/24 10:00 05/14/24 10:33 Sodium Chloride IV 05/14/24 13:59 63.75 mls/hr ONCE ONE Administration Protocol Levothyroxine Sodium 125 mcg 05/14/24 07:00 05/14/24 06:58 Levothyroxine 125 Mcg Tablet PO 125 mcg QDAC MARIYA Administration Montelukast Sodium 10 mg 05/12/24 21:52 05/13/24 21:22 Montelukast 10 Mg Tablet PO 10 mg HS MARIYA Administration Ondansetron HCl 4 mg 05/12/24 21:52 Ondansetron 4 Mg/2 Ml Vial IVP Q6HR PRN Nausea / Vomiting Ondansetron HCl 4 mg 05/12/24 21:52 Ondansetron Odt 4 Mg Tablet TL Q6HR PRN Nausea / Vomiting Pantoprazole Sodium 40 mg 05/13/24 07:00 05/14/24 06:58 Pantoprazole 40 Mg Tablet PO 40 mg QDAC MARIYA Administration Polyethylene Glycol 17 gm 05/14/24 09:00 05/14/24 08:11 Polyethylene Glycol 3350 17 Gm Packet PO 17 gm DAILY MARIYA Administration Multivit/Folic Acid/Iron 1 tab 05/13/24 08:00 05/14/24 08:14 Vitamin Tablet PO 1 tab DAILYWM MARIYA Administration Sodium Chloride 10 ml 05/13/24 01:00 05/14/24 08:16 Sodium Chloride Flush 0.9% 10 Ml Syringe IVP 10 ml 0100,0900,1700 MARIYA Administration Sodium Chloride 10 ml 05/12/24 21:52 Sodium Chloride Flush 0.9% 10 Ml Syringe IVP PRN PRN NEEDED PER PROVIDER ORDERS Sodium Chloride 1 gm 05/13/24 22:00 05/14/24 08:14 Sodium Chloride 1 Gm Tablet PO 1 gm BID MARIYA Administration Objective Vital Signs/Intake & Output Reviewed Vital Signs: Yes Vital Signs: Vital Signs x48h Temp Pulse Pulse Resp BP BP Pulse Ox 05/14/24 12:13 121 H 111/76 05/14/24 12:00 36.7 C 121 H 21 111/76 94 05/14/24 11:00 127 H 15 104/82 97 05/14/24 10:00 125 H 15 109/75 98 05/14/24 09:00 128 H 19 103/76 96 05/14/24 08:00 36.6 C 130 H 13 108/72 93 05/14/24 07:22 120 H 16 05/14/24 07:00 115 H 28 H 93/71 98 05/14/24 06:00 131 H 11 L 107/81 96 Intake & Output: Intake & Output 05/11/24 05/12/24 05/13/24 05/14/24 23:59 23:59 23:59 23:59 Intake Total 5207 / 5207 3280 / 3280 Output Total 800 / 800 7800 / 7800 4650 / 4650 Balance -800 / -800 -2593 / -2593 -1370 / -1370 Weight (kg) 97 kg 96.5 kg 97 kg Objective General Appearance: positive No acute distress and Alert Eyes Bilateral: positive Normal inspection ENT: positive ENT inspection nml Neck: positive Nml inspection Respiratory: positive Chest non-tender, No respiratory distress and Rhonchi Cardiovascular: positive Irregularly irregular Abdomen: positive Non-tender Skin: positive Color nml Extremities: positive Pedal edema Neurologic/Psychiatric: positive Oriented x3 Lab Results 05/14/24 04:21 05/14/24 07:44 Other Labs: Lab Results x24hrs 05/14/24 05/14/24 05/13/24 Range/Units 07:44 04:21 23:56 WBC 13.4 H (4.8-10.8) x10^3/uL RBC 3.58 L (4.20-5.40) 10^6/uL Hgb 11.0 L (12.0-16.0) g/dL Hct 31.3 L (37.0-47.0) % MCV 87.4 (81.0-99.0) fL MCH 30.7 (27.0-31.0) pg MCHC 35.1 (32.0-36.0) g/dL RDW 13.5 (12.0-15.0) % Plt Count 228 (130-450) 10^3/uL MPV 9.8 (7.9-10.8) fL Neut # (Auto) 10.2 H (1.5-6.6) 10^3/uL Lymph # (Auto) 2.2 (1.5-3.5) 10^3/uL Loving # (Auto) 1.0 (0.0-1.0) 10^3/uL Eos # (Auto) 0.0 (0.0-0.7) 10^3/uL Baso # (Auto) 0.0 (0.0-0.1) 10^3/uL Absolute Nucleated RBC 0.00 x10^3/uL Nucleated RBC % 0.0 /100WBC VBG pH 7.504 H (7.31-7.41) Ionized Calcium 1.17 (1.09-1.30) mmol/L Sodium 131 L 128 L 129 L (135-145) mmol/L Potassium 4.0 (3.5-4.5) mmol/L Chloride 94 L (101-111) mmol/L Carbon Dioxide 27 (21-32) mmol/L Anion Gap 7.0 (6-13) BUN 12 (6-20) mg/dL Creatinine 0.6 (0.6-1.3) mg/dL Estimated GFR (MDRD) 99 (>89) Glucose 147 H (74-104) mg/dL Calcium 8.4 L (8.5-10.3) mg/dL Phosphorus 2.4 L (2.5-5.0) mg/dL Magnesium 1.8 1.7 (1.7-2.3) mg/dL 05/13/24 05/13/24 Range/Units 19:48 15:51 WBC (4.8-10.8) x10^3/uL RBC (4.20-5.40) 10^6/uL Hgb (12.0-16.0) g/dL Hct (37.0-47.0) % MCV (81.0-99.0) fL MCH (27.0-31.0) pg MCHC (32.0-36.0) g/dL RDW (12.0-15.0) % Plt Count (130-450) 10^3/uL MPV (7.9-10.8) fL Neut # (Auto) (1.5-6.6) 10^3/uL Lymph # (Auto) (1.5-3.5) 10^3/uL Loving # (Auto) (0.0-1.0) 10^3/uL Eos # (Auto) (0.0-0.7) 10^3/uL Baso # (Auto) (0.0-0.1) 10^3/uL Absolute Nucleated RBC x10^3/uL Nucleated RBC % /100WBC VBG pH (7.31-7.41) Ionized Calcium (1.09-1.30) mmol/L Sodium 125 L 126 L (135-145) mmol/L Potassium 4.0 (3.5-4.5) mmol/L Chloride (101-111) mmol/L Carbon Dioxide (21-32) mmol/L Anion Gap (6-13) BUN (6-20) mg/dL Creatinine (0.6-1.3) mg/dL Estimated GFR (MDRD) (>89) Glucose (74-104) mg/dL Calcium (8.5-10.3) mg/dL Phosphorus (2.5-5.0) mg/dL Magnesium 2.0 1.5 L (1.7-2.3) mg/dL Assessment/Plan Problem List (1) Acute hyponatremia: Impression: Received hypertonic saline in the ER as well as a liter bolus of normal saline Sodium checks Q4. Goal correction no more than 8 in a 24-hour period To prevent central pontine demyelination I think her hyponatremia is dilutional, so I have started her on Lasix 20 mg IV daily She was started on salt tabs last night, but her sodium corrected too fast so these have been discontinued and she has been started on D5 at 100 Checking echocardiogram to see if she has a component of heart failure 05/14/2024: Sodium 131, de-escalating to daily BMP. Nursing is reporting a lot of water intake. I have encouraged patient to use ice chips instead. De- escalating her Lasix to p.o. as she has had a lot of improvement in her respiratory status (2) Atrial fibrillation with RVR: Impression: Likely exacerbated by hyponatremia as well as residual dyspnea from influenza Cardizem drip initiated by ER provider Cardizem 180 mg XR daily Check echo TSH in a.m. 05/14/2024: Rate varies from 90s to 120s. Off Cardizem drip. Escalating Cardizem p.o. to 240 in the morning, supplementing for today with every 6 Cardizem p.o., While maintaining telemetry to ensure she does not become bradycardic. Out of ICU later today (3) Altered mental status: Impression: Much improved after her sodium has increased CT head no acute pathology. Stroke not likely Resolved Qualifiers: Altered mental status type: transient alteration of awareness Qualified Code(s): R40.4 - Transient alteration of awareness (4) Reactive airway disease: Impression: Has residual dyspnea secondary to her chronic lung disease as well as recent influenza Anxiety is a component of this, she was already being treated with benzodiazepines during last admission She completed a course of antibiotics for pneumonia. Her procalcitonin level is negative so bacterial pneumonia is unlikely Continue home inhaler regimen 05/14/2024: Much improved. De-escalating Lasix to p.o. Qualifiers: Asthma persistence: unspecified Asthma severity: mild Qualified Code(s): J45.909 - Unspecified asthma, uncomplicated
[2024-05-14] MEDS: DEXTROAMPHETAMINE 10 MG PO ONE (14:34)
[2024-05-14 17:06] LABS: MAGNESIUM 1.6 mg/dL (1.7-2.3); PHOSPHORUS 3.4 mg/dL (2.5-5.0)
[2024-05-14] MEDS: IPRATROPIUM/ALBUTEROL 3 ML NEB INH PRN (17:47)
[2024-05-14] MEDS: atenoloL 25 MG TABLET PO SCH (21:41)
[2024-05-15 04:56] LABS: BASOPHILS % (AUTO) 0.1 %; EOSINOPHILS % (AUTO) 0.3 %; HGB - HEMOGLOBIN 11.2 g/dL (12.0-16.0); LYMPHOCYTES # (AUTO) 2.3 10^3/uL (1.5-3.5); LYMPHOCYTES % (AUTO) 18.4 %; MEAN CORPUSCULAR HEMOGLOBIN 30.1 pg (27.0-31.0); MEAN CORPUSCULAR HGB CONC 33.9 g/dL (32.0-36.0); MEAN CORPUSCULAR VOLUME 88.7 fL (81.0-99.0); MEAN PLATELET VOLUME 9.7 fL (7.9-10.8); MONOCYTES # (AUTO) 0.8 10^3/uL (0.0-1.0); MONOCYTES % (AUTO) 6.2 %; NEUTROPHILS # (AUTO) 9.2 10^3/uL (1.5-6.6); NEUTROPHILS % (AUTO) 74.4 %; PLT - PLATELET COUNT 236 10^3/uL (130-450); RED BLOOD COUNT 3.72 10^6/uL (4.20-5.40); RED CELL DISTRIBUTION WIDTH 13.7 % (12.0-15.0); WHITE BLOOD COUNT 12.4 x10^3/uL (4.8-10.8)
[2024-05-15 05:14] LABS: CALCIUM 8.7 mg/dL (8.5-10.3); CREATININE 0.7 mg/dL (0.6-1.3); POTASSIUM 4.3 mmol/L (3.5-4.5)
[2024-05-15] MEDS: MAGNESIUM SULFATE 2 GRAM 2 GM/50 ML BAG IV ONE (06:13)
[2024-05-15] MEDS: diltiaZEM CD 240 MG CAPSULE PO SCH (08:18)
[2024-05-15] MEDS: FUROSEMIDE 20 MG TABLET PO SCH (08:19)
[2024-05-15] MEDS: DOCUSATE SODIUM 250 MG CAPSULE PO SCH (08:19)
[2024-05-15 09:25] LABS: THYROID STIMULATING HORMONE 0.54 uIU/mL (0.34-5.60)
[2024-05-15 12:42] VITALS: BP 96/66; TEMP 98.7; O2SAT 95
--- NOTE | 2024-05-15 14:55 | Discharge Summary ---
Discharge Summary Admit Date: 05/12/24 Discharge Date: 05/15/24 Discharging Provider: Bashir Landers NP Primary Care Provider: Ting Salgado Code Status: Attempt Resuscitation DIAGNOSES Admission Diagnoses: Acute hyponatremia Atrial fibrillation with RVR Altered mental status Reactive airway disease Discharge Diagnoses with Status of Each Condition: Acute hyponatremiaresolved Atrial fibrillation with RVRrate controlled on new prescription of Cardizem Altered mental statusresolved Reactive airway diseasechronic HPI History of Present Illness: 69-year-old female H significant for A-fib RVR, asthma, hypertension who was just admitted for an exacerbation of her atrial fibrillation secondary to influenza A as well as a enlarged submandibular salivary gland. She was discharged on 05/11/2024, and has still been having difficulty breathing. Interview is difficult as she is encephalopathic. She is unsure what she takes at home. She is unsure if she has picked up any new scripts since leaving the hospital. In the ER, chest x-ray was performed which showed no new abnormality. She was found to be in A-fib RVR so she was started on a Cardizem drip by the ER provider. She does have a worsening leukocytosis which could be due to her steroid use. She was noted to have potassium 3.4 and sodium of 118, so hospitalist was contacted for admission for hyponatremia and atrial fibrillation with RVR HOSPITAL COURSE Hospital Course: Patient was admitted into the hospital and started on oral sodium replacement as well as diuretics. Rate control was achieved with Cardizem to 40 mg extended release as well as restarting her home dose bisoprolol. Echocardiogram was performed, awaiting read. Her work of breathing improved drastically with Lasix, so she was given a prescription for Lasix to take at home until otherwise directed by her PCP. ALLERGIES Allergies Allergy/AdvReac Type Severity Reaction Status Date / Time alprazolam (From Xanax) Allergy Severe Unknown Verified 05/12/24 18:54 influenza virus vaccine, Allergy Severe Unknown Verified 05/12/24 18:54 specific atenolol Allergy Mild throat Unverified 05/15/24 13:22 swelling bupivacaine HCl * (From Allergy Unknown Verified 05/12/24 18:54 Marcaine-Epinephrine) ibuprofen Allergy Rash Verified 05/12/24 18:54 meperidine (From Demerol) Allergy Hives Verified 05/12/24 18:54 methylparaben Allergy Hives Verified 05/12/24 18:54 morphine Allergy Itching Verified 05/12/24 18:54 naproxen sodium * (From Allergy Itching Verified 05/12/24 18:54 Aleve) propoxyphene (From Darvon) Allergy Hives Verified 05/12/24 18:54 Sulfa (Sulfonamide Allergy Edema Verified 05/11/24 21:39 Antibiotics) Opioids - Morphine Analogues AdvReac Severe Unknown Verified 05/11/24 21:39 phenytoin sodium * (From AdvReac Hives Verified 05/11/24 21:39 Dilantin) phenytoin sodium extended * AdvReac Hives Verified 05/11/24 21:39 (From Dilantin) MEDICATIONS Ambulatory Orders Medication Instructions Recorded Confirmed Lactobacillus acidophilus 100 1 ea PO TID 04/26/13 05/13/24 million cell capsule alpha lipoic acid 50 mg capsule 50 mg PO DAILY 04/26/13 05/13/24 aspirin 81 mg tablet,delayed 81 mg PO DAILY 04/26/13 05/13/24 release (Aspir-) chromium picolinate 400 mcg tablet 400 mcg PO DAILY 04/26/13 05/13/24 coenzyme Q10 100 mg capsule 100 mg PO DAILY 04/26/13 05/13/24 fexofenadine 60 mg tablet 60 mg PO DAILY PRN Allergy Symptoms 04/26/13 05/13/24 omega 5-vyw-enx-fish oil 980 1 ea PO DAILY 04/26/13 05/13/24 mg-1,400mg capsule,delayed release bupropion HCl 150 mg 24 hr tablet, 150 mg PO QAM #30 tabs 03/02/24 05/13/24 extended release (Wellbutrin XL) azelastine 137 mcg (0.1 %) nasal 1 spray intranasal ONCE PRN 04/06/24 05/13/24 spray allergy symptoms blood sugar diagnostic (OneTouch 04/06/24 05/05/24 Ultra Test strips) cholecalciferol (vitamin D3) 50 50 mcg PO QDAY 04/06/24 05/13/24 mcg (2,000 unit) capsule diclofenac sodium 50 mg 50 mg PO ONCE PRN pain 04/06/24 05/13/24 tablet,delayed release estradiol 0.01% (0.1 mg/gram) 1 g vaginal QWEEK 04/06/24 05/13/24 vaginal cream fluticasone propionate 50 1 spray intranasal DAILY 04/06/24 05/13/24 mcg/actuation nasal spray,suspension montelukast 10 mg tablet 10 mg PO HS 04/06/24 05/13/24 multivitamin (Daily Multi-Vitamin 1 tab PO QDAY 04/06/24 05/13/24 tablet) mv-mn-folic 200 mcg-vit K 15 1 cap PO DAILY 04/06/24 05/13/24 mcg-lutein 5 mg-zeaxanthin 1 mg capsule (PreserVision AREDS 2 Plus Multivit) omeprazole 20 mg capsule,delayed 20 mg PO DAILY 04/06/24 05/13/24 release polyethylene glycol 3350 17 17 g PO HS PRN constipation 04/06/24 05/13/24 gram/dose oral powder (Miralax) potassium chloride 10 mEq 10 meq PO DAILY 04/06/24 05/13/24 tablet,extended release hydrochlorothiazide 25 mg tablet 25 mg PO QAM #90 tabs 04/23/24 05/13/24 albuterol sulfate 90 mcg/actuation 2 puff inhalation QID PRN 05/03/24 05/13/24 aerosol inhaler (Ventolin HFA) shortness of breath or wheezing #6.7 grams diazepam 2 mg tablet 2 mg PO DAILY PRN anxiety 05/09/24 05/13/24 fluticasone propionate 230 2 inh inhalation BID 05/09/24 05/13/24 mcg-salmeterol 21 mcg/actuation HFA inhaler levothyroxine 125 mcg tablet 125 mcg PO QDAY #90 tabs 05/10/24 05/13/24 (Levoxyl) hydrocodone 5 mg-acetaminophen 325 1 tab PO Q4H PRN pain #14 tabs 05/11/24 05/13/24 mg tablet bisoprolol fumarate 5 mg tablet 5 mg PO DAILY #30 tabs 05/15/24 05/14/24 diltiazem HCl 240 mg 240 mg PO DAILY 30 days #30 caps 05/15/24 capsule,extended release 24 hr furosemide 20 mg tablet 20 mg PO DAILY 30 days #30 tabs 05/15/24 PHYSICAL EXAM AT DISCHARGE General Appearance: positive No acute distress and Alert Eyes Bilateral: positive Normal inspection and PERRL ENT: positive ENT inspection nml Neck: positive Nml inspection Respiratory: positive Chest non-tender and No respiratory distress Cardiovascular: positive Regular rate & rhythm Peripheral Pulses: positive 2+ Abdomen: positive Non-tender Back: positive Nml inspection Skin: positive Color nml Extremities: positive Non-tender Neurologic/Psychiatric: positive Oriented x3 LABS 05/15/24 04:31 05/15/24 04:31 FOLLOW UP Follow Up: With PCP TIME SPENT Time Spent in Discharge (Minutes): 35 Discharge Plan Discharge Patient Disposition: Home, Self Care Condition: Stable Prescriptions: New diltiazem HCl 240 mg Capsule,Extended Release 24hr 240 mg PO DAILY 30 Days Qty: 30 0RF furosemide 20 mg Tablet 20 mg PO DAILY 30 Days Qty: 30 0RF Continued levothyroxine [Levoxyl] 125 mcg tablet 125 mcg PO QDAY Qty: 90 0RF coenzyme Q10 100 MG capsule 100 mg PO DAILY omega 9-kny-srf-fish oil 1 EACH capsule,delayed release(DR/EC) 1 ea PO DAILY Lactobacillus acidophilus 1 EACH capsule 1 ea PO TID alpha lipoic acid 50 MG capsule 50 mg PO DAILY aspirin [Aspir-81] 81 MG tablet,delayed release (DR/EC) 81 mg PO DAILY chromium picolinate 400 MCG tablet 400 mcg PO DAILY fexofenadine 60 MG tablet 60 mg PO DAILY PRN (Reason: Allergy Symptoms) fluticasone propion-salmeterol 230-21 mcg/actuation HFA aerosol inhaler 2 inh inhalation BID diazepam 2 mg tablet 2 mg PO DAILY PRN (Reason: anxiety) hydrocodone-acetaminophen 5-325 mg tablet 1 tab PO Q4H PRN (Reason: pain) Qty: 14 0RF ipratropium-albuterol 0.5 mg-3 mg(2.5 mg base)/3 mL solution for nebulization 3 ml inhalation ONCE Qty: 1 0RF albuterol sulfate [Ventolin HFA] 90 mcg/actuation HFA aerosol inhaler 2 puff inhalation QID PRN (Reason: shortness of breath or wheezing) Qty: 6.7 2RF azelastine 137 mcg (0.1 %) spray,non-aerosol 1 spray intranasal ONCE PRN (Reason: allergy symptoms) Rx Instructions: Inhale 1-2 spray into both nostrils twice a day diclofenac sodium 50 mg tablet,delayed release (DR/EC) 50 mg PO ONCE PRN (Reason: pain) Rx Instructions: Take 1 tablet by mouth once a day as needed polyethylene glycol 3350 [Miralax] 17 gram/dose powder 17 g PO HS PRN (Reason: constipation) Rx Instructions: Uses every night estradiol 0.01 % (0.1 mg/gram) cream 1 g vaginal QWEEK Rx Instructions: Insert 1 gram into vagina once a week (DME) OneTouch Ultra Test Strip See Rx Instructions .Route Rx Instructions: Use one strip via meter twice a day to check blood sugar omeprazole 20 mg capsule,delayed release(DR/EC) 20 mg PO DAILY Rx Instructions: Take 1 capsule by mouth once a day potassium chloride 10 mEq tablet extended release 10 meq PO DAILY Rx Instructions: Take 1 tablet by mouth once a day montelukast 10 mg tablet 10 mg PO HS Rx Instructions: Take 1 tablet by mouth once a day fluticasone propionate 50 mcg/actuation spray,suspension 1 spray intranasal DAILY Rx Instructions: administer into each nostril PreserVision AREDS 2 Plus MV 200 mcg-15 mcg- 5 mg-1 mg capsule 1 cap PO DAILY multivitamin [Daily Multi-Vitamin] Tablet 1 tab PO QDAY cholecalciferol (vitamin D3) 50 mcg (2,000 unit) capsule 50 mcg PO QDAY hydrochlorothiazide 25 mg tablet 25 mg PO QAM Qty: 90 0RF Rx Instructions: Take 1 tablet by mouth every morning bupropion HCl [Wellbutrin XL] 150 mg tablet extended release 24 hr 150 mg PO QAM Qty: 30 0RF albuterol sulfate 2.5 mg /3 mL (0.083 %) solution for nebulization 2.5 mg continuous nebulization ONCE Qty: 1 0RF Changed bisoprolol fumarate 5 mg tablet 5 mg PO DAILY Qty: 30 0RF Discontinued prednisone 20 mg Tablet 40 mg PO DAILYWM 2 Days Qty: 4 0RF diltiazem HCl 90 mg capsule,extended release 12 hr 90 mg PO BID Qty: 60 0RF amoxicillin-pot clavulanate 875-125 mg tablet 1 tab PO BID Qty: 14 0RF Activity Restrictions: Activity as Tolerated Diet: Regular Health Concerns: He came into the hospital with worsening shortness of breath and palpitations as well as confusion. You were found to have a critically low sodium, so you were admitted into the hospital. You have history of atrial fibrillation, and you were found to have a very high heart rate associated with this. We have controlled your heart rate with a medication called Cardizem. I am sending you home with prescription for this. I would also like for you to continue your bisoprolol as previously directed. You had a lot of excess fluid when you came in, so I am sending you home with prescription for furosemide for you to take every day until otherwise directed by your primary care provider. We performed an echocardiogram and do not have the results back from that yet. Please follow-up with your primary care provider regarding the results of your echocardiogram The new medication, Cardizem, may cause low blood pressures or low heart rate. Please exercise caution when you get up from sitting or laying down and report any lightheadedness to your primary care provider Print Language: Yi Patient Instructions: Atrial Fibrillation Stand Alone Forms: PCP List Follow-up Care: Ting Salgado MD [Primary Care Provider] -
[2024-05-15] MEDS ORDERED: DOCUSATE SODIUM 250 MG CAPSULE PO SCH (18:00)
== END 2024-05-15 13:40 | disposition home or self-care (01) | DRG 641 ==
LOC: ED 18:49 → ICU 21:01
PROVIDERS: ADMIT Nurse Practitioner Acute Care; ATTEND Nurse Practitioner Acute Care
DX: D72.829 Elevated white blood cell count, unspecified; Z66 Do not resuscitate; E87.1 Hypo-osmolality and hyponatremia; J45.909 Unspecified asthma, uncomplicated; I48.91 Unspecified atrial fibrillation; I10 Essential (primary) hypertension; R40.4 Transient alteration of awareness